=== PATIENT | female | born 1950 | race Caucasian/White ===

== ENCOUNTER 2025-01-21 13:06 | Inpatient (IN) | payer MEDICARE ==
[2025-01-21 14:08] LABS: Basophils # (A) 0.1 k/uL (0-0.2); Basophils % (A) 1 %; Eosinophils # (A) 0.2 k/uL (0-0.7); Eosinophils % (A) 3 %; HCT 46.6 % (34.0-46.0); HGB 15.8 gm/dL (11.4-16.0); Lymphocytes % (A) 13 %; MCH 30.9 pg (25.0-35.0); MCHC 33.9 g/dL (31.0-37.0); Mean Platelet Volume 9.5; Monocytes # (A) 0.4 k/uL (0-1.0); Monocytes % (A) 5 %; Neutrophils % (A) 77 %; Platelet Count 274 k/uL (150-450); RBC 5.12 m/uL (3.80-5.40); RDW 12.4 % (11.5-15.5); WBC 7.7 k/uL (3.8-10.6)
[2025-01-21 14:18] LABS: ALT 26 U/L (4-34); AST 27 U/L (14-36); African American GFR (CKD) >90 (>60 ml/min/1.73 sqM); Albumin 4.3 g/dL (3.5-5.0); Alkaline Phosphatase 91 U/L (38-126); Anion Gap 12 mmol/L; Blood Urea Nitrogen 17 mg/dL (7-17); Calcium 9.4 mg/dL (8.4-10.2); Carbon Dioxide 28 mmol/L (22-30); Chloride 94 mmol/L (98-107); Glucose 276 mg/dL (74-99); Non-African American GFR(CKD) >90 (>60 ml/min/1.73 sqM); Potassium 3.8 mmol/L (3.5-5.1); Sodium 134 mmol/L (137-145); Total Bilirubin 1.2 mg/dL (0.2-1.3); Total Protein 7.3 g/dL (6.3-8.2)
--- NOTE | 2025-01-21 14:23 | ED ---
Weakness HPI - General Source: patient, family, EMS, RN notes reviewed Mode of arrival: EMS Limitations: no limitations, physical limitation <LupeUvaldo elmore - Last Filed: 01/21/25 14:17> - General Source: patient, family, EMS, RN notes reviewed, old records reviewed Mode of arrival: EMS Limitations: no limitations, physical limitation - History of Present Illness MD Complaint: generalized weakness, lack of energy, difficulty walking -: days(s) (3) Location: LLE, RLE Severity: moderate Severity scale (1-10): 7 Quality: aching Consistency: constant Improves with: none Worsens with: none Context: recent illness Associated Symptoms: myalgias <Gael Rae - Last Filed: 01/27/25 17:26> - General Chief complaint: Weakness Stated complaint: Weakness Time Seen by Provider: 01/21/25 13:20 - History of Present Illness Initial comments: Quick note: This is a 74-year-old female with history of CVA/TIA and DM presenting with for generalized weakness x 5 days. Patient states she has been stuck in bed and has not had the strength to get out with worsening weakness for the past 2-3 days. Patient states her legs feel "on fire" and is unable to be touched due to pain. states patient also having some incontinence as well. Patient denies fever, chills, chest pain, dyspnea, hemiplegia. (Uvaldo Andrade) This is a 74 female to the ER for evaluation, history of CVA and diabetes coming in for weakness decreased strength going up for 3 days. Patient denies any significant complaints but states her whole body hurts. Specially her legs. Family denies any fevers patient is not complaining of any chest pain or shortness of breath and they have not witnessed any episodes of difficulty breathing (Gael Rae) - Related Data Home Medications Medication Instructions Recorded Confirmed Gabapentin [Neurontin] 300 mg PO HS 01/21/25 01/21/25 metFORMIN HCL [Glucophage] 1,000 mg PO BID 01/21/25 01/21/25 Allergies Allergy/AdvReac Type Severity Reaction Status Date / Time latex Allergy Itching Verified 01/21/25 16:30 azithromycin AdvReac Rash/Hives Verified 01/21/25 16:30 Review of Systems ROS Other: All systems not noted in ROS Statement are negative. <Uvaldo Andrade - Last Filed: 01/21/25 14:17> ROS Other: All systems not noted in ROS Statement are negative. <Gael Rae - Last Filed: 01/27/25 17:26> ROS Statement: Those systems with pertinent positive or pertinent negative responses have been documented in the HPI. Past Medical History Past Medical History: CVA/TIA, Diabetes Mellitus Additional Past Medical History / Comment(s): neuropathy History of Any Multi-Drug Resistant Organisms: None Reported Past Surgical History: Orthopedic Surgery Additional Past Surgical History / Comment(s): left knee surgery Past Psychological History: No Psychological Hx Reported Smoking Status: Former smoker Past Alcohol Use History: None Reported Past Drug Use History: None Reported <Uvaldo Andrade Filed: 01/21/25 14:17> - Past Family History Father Additional Family Medical History / Comment(s): of unknown cause Mother Additional Family Medical History / Comment(s): unknown cause <Gael Rae - Last Filed: 01/27/25 17:26> General Exam Limitations: no limitations, physical limitation <Uvaldo Andrade Last Filed: 01/21/25 14:17> General appearance: alert, in no apparent distress Head exam: Present: atraumatic, normocephalic, normal inspection Eye exam: Present: normal appearance, PERRL, EOMI. Absent: scleral icterus, conjunctival injection, periorbital swelling ENT exam: Present: normal exam, mucous membranes moist Neck exam: Present: normal inspection. Absent: tenderness, meningismus, lymphadenopathy Respiratory exam: Present: normal lung sounds bilaterally. Absent: respiratory distress, wheezes, rales, rhonchi, stridor Cardiovascular Exam: Present: normal rhythm, tachycardia, normal heart sounds. Absent: systolic murmur, diastolic murmur, rubs, gallop, clicks GI/Abdominal exam: Present: soft, normal bowel sounds. Absent: distended, tenderness, guarding, rebound, rigid Extremities exam: Present: normal inspection, full ROM, normal capillary refill. Absent: tenderness, pedal edema, joint swelling, calf tenderness Back exam: Present: normal inspection Neurological exam: Present: alert, oriented X3, CN II-XII intact Psychiatric exam: Present: normal affect, normal mood Skin exam: Present: warm, dry, intact, normal color. Absent: rash <Gael Rae - Last Filed: 01/27/25 17:26> - General Exam Comments Initial Comments: Visual Physical Exam Vital signs reviewed General: Well-appearing, nontoxic, no acute distress. Head: Normocephalic, atraumatic Eyes: PERRLA, EOMI ENT: Airway patent Chest: Nonlabored breathing Skin: No visual rash, normal skin tone Neuro: Alert and oriented 3 Musculoskeletal: No gross abnormalities (Uvaldo Andrade) Course <Gael Rae - Last Filed: 01/27/25 17:26> Vital Signs 01/21/25 01/21/25 01/21/25 13:23 16:19 17:14 Temperature 98.2 F Pulse Rate 113 H 112 H 102 H Respiratory 18 20 18 Rate Blood Pressure 153/85 114/74 126/90 O2 Sat by Pulse 93 L 95 Oximetry 01/21/25 18:42 Temperature Pulse Rate 108 H Respiratory 18 Rate Blood Pressure 112/75 O2 Sat by Pulse 94 L Oximetry - Reevaluation(s) Reevaluation #1: 01/21/25 16:40 Medical records reviewed (Gael Rae) Reevaluation #2: 01/21/25 16:40 Patient has no complaints of chest pain no complaints of shortness of breath (Gael Rae) Reevaluation #3: 01/21/25 16:40 Patient and family informed of results questions answered (Gael Rae) Reevaluation #4: Was pt. sent in by a medical professional or institution (, PA, RECORD SEARCHER, urgent care, hospital, or residential...) When possible be specific @ -no Did you speak to anyone other than the patient for history (EMS, parent, family, police, friend...)? What history was obtained from this source @ -no Did you review nursing and triage notes (agree or disagree)? Why? @ -agree Are old charts reviewed (outside hosp., previous admission, EMS record, old EKG, old radiological studies, urgent care reports/EKG's, residential records)? Report findings @ -yes Differential Diagnosis (chest pain, altered mental status, abdominal pain women, abdominal pain men, vaginal bleeding, weakness, fever, dyspnea, syncope, headache, dizziness, GI bleed, back pain, seizure, CVA, palpatations, mental health, musculoskeletal)? @ -prior EKG interpreted by me (3pts min.). @ -yes X-rays interpreted by me (1pt min.). @ -yes positive for pneumonia CT interpreted by me (1pt min.). @ -Yes positive PE U/S interpreted by me (1pt. min.). @ -Yes negative DVT What testing was considered but not performed or refused? (CT, X-rays, U/S, labs)? Why? @ -none What meds were considered but not given or refused? Why? @ -none Did you discuss the management of the patient with other professionals (professionals i.e. , PA, RECORD SEARCHER, lab, RT, psych nurse, marriage and family social worker, lay ups assembler, teacher, property disposal officer, egg caser)? Give summary @ -no Was smoking cessation discussed for >3mins.? @ -no Was critical care preformed (if so, how long)? @ -yes31 Were there social determinants of health that impacted care today? How? (Homelessness, low income, unemployed, alcoholism, drug addiction, transportation, low edu. Level, literacy, decrease access to med. care, long-term, rehab)? @ -none Was there de-escalation of care discussed even if they declined (Discuss DNR or withdrawal of care, Hospice)? DNR status @ -no What co-morbidities impacted this encounter? (DM, HTN, Smoking, COPD, CAD, Cancer, CVA, ARF, Chemo, Hep., AIDS, mental health diagnosis, sleep apnea, morbid obesity)? @ -none Was patient admitted / discharged? Hospital course, mention meds given and route, prescriptions, significant lab abnormalities, going to OR and other pertinent info. @ - 74 female for ER for weakness lower extremity weakness found to have non-ST elevated NJ here in the ER no chest pain no shortness of breath patient admitted for trending of cardiac enzymes and further evaluation, patient does have positive PE on CT scan no DVT with possible PT OT for weakness Admitted Undiagnosed new problem with uncertain prognosis? @ -no Drug Therapy requiring intensive monitoring for toxicity (Heparin, Nitro, Insulin, Cardizem)? @ -no Were any procedures done? @ -no Diagnosis/symptom? @ -PE, pulmonary edema, dyspnea pneumonia Acute, or Chronic, or Acute on Chronic? @ -Acute Uncomplicated (without systemic symptoms) or Complicated (systemic symptoms)? @ -Complicated Side effects of treatment? @ -no Exacerbation, Progression, or Severe Exacerbation? @ -exacerbation Poses a threat to life or bodily function? How? (Chest pain, USA, NJ, pneumonia, PE, COPD, DKA, ARF, appy, cholecystitis, CVA, Diverticulitis, Homicidal, Suicidal, threat to staff... and all critical care pts) @ -yes pulmonary embolism (Gael Rae) Reevaluation #5: Differential Weakness: Hypoglycemia, shock, sepsis, hyponatremia, anemia, infection, NJ, ETOH, adverse medicine reaction, overdose, stroke, this is not meant to be an all-inclusive list. (Gael Rae) - Consultations Consultation #1: spoke w admitting physicians ok for admission (Gael Rae) Medical Decision Making - Lab Data Result diagrams: 01/21/25 13:55 <Uvaldo Andrade - Last Filed: 01/21/25 14:17> - Lab Data Result diagrams: 01/27/25 06:11 01/27/25 06:11 - EKG Data -: EKG Interpreted by Me - Radiology Data Radiology results: report reviewed (Chest x-ray concern for pneumonia, CTA chest positive for PE pneumonia, ultrasound bilateral lower extremity negative for PE), image reviewed <Gael Rae - Last Filed: 01/27/25 17:26> - Medical Decision Making I completed the quick note portion of this chart signed MIRIAN Duran (Uvaldo Andrade) 74 female for ER for weakness lower extremity weakness found to have non-ST elevated NJ here in the ER no chest pain no shortness of breath patient admitted for trending of cardiac enzymes and further evaluation with possible PT OT for weakness (Gael Rae) - Lab Data Lab Results 01/21/25 01/21/25 01/21/25 Range/Units 13:55 13:55 13:55 WBC 7.7 (3.8-10.6) k/uL RBC 5.12 (3.80-5.40) m/uL Hgb 15.8 (11.4-16.0) gm/dL Hct 46.6 H (34.0-46.0) % MCV 91.0 (80.0-100.0) fL MCH 30.9 (25.0-35.0) pg MCHC 33.9 (31.0-37.0) g/dL RDW 12.4 (11.5-15.5) % Plt Count 274 (150-450) k/uL MPV 9.5 Neutrophils % 77 % Lymphocytes % 13 % Monocytes % 5 % Eosinophils % 3 % Basophils % 1 % Neutrophils # 6.0 (1.3-7.7) k/uL Lymphocytes # 1.0 (1.0-4.8) k/uL Monocytes # 0.4 (0-1.0) k/uL Eosinophils # 0.2 (0-0.7) k/uL Basophils # 0.1 (0-0.2) k/uL PT (10.0-12.5) sec INR (<1.2) APTT (22.0-30.0) sec D-Dimer (<0.60) mg/L FEU Sodium 134 L (137-145) mmol/L Potassium 3.8 (3.5-5.1) mmol/L Chloride 94 L (98-107) mmol/L Carbon Dioxide 28 (22-30) mmol/L Anion Gap 12 mmol/L BUN 17 (7-17) mg/dL Creatinine 0.51 L (0.52-1.04) mg/dL Est GFR (CKD-EPI)AfAm >90 (>60 ml/min/1.73 sqM) Est GFR (CKD-EPI)NonAf >90 (>60 ml/min/1.73 sqM) Glucose 276 H (74-99) mg/dL Plasma Lactic Acid Buck 1.8 (0.7-2.0) mmol/L Calcium 9.4 (8.4-10.2) mg/dL Phosphorus 4.2 (2.5-4.5) mg/dL Magnesium 2.3 (1.6-2.3) mg/dL Total Bilirubin 1.2 (0.2-1.3) mg/dL AST 27 (14-36) U/L ALT 26 (4-34) U/L Alkaline Phosphatase 91 (38-126) U/L Creatine Kinase (30-135) U/L Troponin I (0.000-0.034) ng/mL NT-Pro-B Natriuret Pep 3510 pg/mL Total Protein 7.3 (6.3-8.2) g/dL Albumin 4.3 (3.5-5.0) g/dL Influenza Type A (PCR) (Not Detectd) Influenza Type B (PCR) (Not Detectd) RSV (PCR) (Not Detectd) SARS-CoV-2 (PCR) (Not Detectd) 01/21/25 01/21/25 01/21/25 Range/Units 13:55 13:55 16:10 WBC (3.8-10.6) k/uL RBC (3.80-5.40) m/uL Hgb (11.4-16.0) gm/dL Hct (34.0-46.0) % MCV (80.0-100.0) fL MCH (25.0-35.0) pg MCHC (31.0-37.0) g/dL RDW (11.5-15.5) % Plt Count (150-450) k/uL MPV Neutrophils % % Lymphocytes % % Monocytes % % Eosinophils % % Basophils % % Neutrophils # (1.3-7.7) k/uL Lymphocytes # (1.0-4.8) k/uL Monocytes # (0-1.0) k/uL Eosinophils # (0-0.7) k/uL Basophils # (0-0.2) k/uL PT 11.4 (10.0-12.5) sec INR 1.0 (<1.2) APTT 18.9 L (22.0-30.0) sec D-Dimer (<0.60) mg/L FEU Sodium (137-145) mmol/L Potassium (3.5-5.1) mmol/L Chloride (98-107) mmol/L Carbon Dioxide (22-30) mmol/L Anion Gap mmol/L BUN (7-17) mg/dL Creatinine (0.52-1.04) mg/dL Est GFR (CKD-EPI)AfAm (>60 ml/min/1.73 sqM) Est GFR (CKD-EPI)NonAf (>60 ml/min/1.73 sqM) Glucose (74-99) mg/dL Plasma Lactic Acid Buck (0.7-2.0) mmol/L Calcium (8.4-10.2) mg/dL Phosphorus (2.5-4.5) mg/dL Magnesium (1.6-2.3) mg/dL Total Bilirubin (0.2-1.3) mg/dL AST (14-36) U/L ALT (4-34) U/L Alkaline Phosphatase (38-126) U/L Creatine Kinase 179 H (30-135) U/L Troponin I 0.401 H* (0.000-0.034) ng/mL NT-Pro-B Natriuret Pep pg/mL Total Protein (6.3-8.2) g/dL Albumin (3.5-5.0) g/dL Influenza Type A (PCR) (Not Detectd) Influenza Type B (PCR) (Not Detectd) RSV (PCR) (Not Detectd) SARS-CoV-2 (PCR) (Not Detectd) 01/21/25 01/21/25 Range/Units 16:10 16:30 WBC (3.8-10.6) k/uL RBC (3.80-5.40) m/uL Hgb (11.4-16.0) gm/dL Hct (34.0-46.0) % MCV (80.0-100.0) fL MCH (25.0-35.0) pg MCHC (31.0-37.0) g/dL RDW (11.5-15.5) % Plt Count (150-450) k/uL MPV Neutrophils % % Lymphocytes % % Monocytes % % Eosinophils % % Basophils % % Neutrophils # (1.3-7.7) k/uL Lymphocytes # (1.0-4.8) k/uL Monocytes # (0-1.0) k/uL Eosinophils # (0-0.7) k/uL Basophils # (0-0.2) k/uL PT (10.0-12.5) sec INR (<1.2) APTT (22.0-30.0) sec D-Dimer 13.17 H (<0.60) mg/L FEU Sodium (137-145) mmol/L Potassium (3.5-5.1) mmol/L Chloride (98-107) mmol/L Carbon Dioxide (22-30) mmol/L Anion Gap mmol/L BUN (7-17) mg/dL Creatinine (0.52-1.04) mg/dL Est GFR (CKD-EPI)AfAm (>60 ml/min/1.73 sqM) Est GFR (CKD-EPI)NonAf (>60 ml/min/1.73 sqM) Glucose (74-99) mg/dL Plasma Lactic Acid Buck (0.7-2.0) mmol/L Calcium (8.4-10.2) mg/dL Phosphorus (2.5-4.5) mg/dL Magnesium (1.6-2.3) mg/dL Total Bilirubin (0.2-1.3) mg/dL AST (14-36) U/L ALT (4-34) U/L Alkaline Phosphatase (38-126) U/L Creatine Kinase (30-135) U/L Troponin I (0.000-0.034) ng/mL NT-Pro-B Natriuret Pep pg/mL Total Protein (6.3-8.2) g/dL Albumin (3.5-5.0) g/dL Influenza Type A (PCR) Not Detected (Not Detectd) Influenza Type B (PCR) Not Detected (Not Detectd) RSV (PCR) Not Detected (Not Detectd) SARS-CoV-2 (PCR) Not Detected (Not Detectd) Critical Care Time Critical Care Time: Yes Total Critical Care Time: 31 <Gael Rae - Last Filed: 01/27/25 17:26> Disposition <Uvaldo Andrade - Last Filed: 01/21/25 14:17> Is patient prescribed a controlled substance at d/c from ED?: No Time of Disposition: 16:30 <Gael Rae - Last Filed: 01/27/25 17:26> Clinical Impression: Dehydration, Weakness, NSTEMI (non-ST elevated myocardial infarction), Tachycardia, Pneumonia, Pulmonary edema, Pulmonary embolism Disposition: ADMITTED IP TO THIS [facility] Condition: Serious
--- NOTE | 2025-01-21 15:34 | XR ---
EXAMINATION TYPE: XR chest 2V DATE OF EXAM: 01/21/2025 3:24 PM COMPARISON: None TECHNIQUE: XR chest 2V Frontal and lateral views of the chest. CLINICAL INDICATION:Female, 74 years old with history of Weakness; FINDINGS: Lungs/Pleura: There is no evidence of pleural effusion or pneumothorax. Bibasilar patchy airspace opa cities. Pulmonary vascularity: Unremarkable. Heart/mediastinum: Cardiomediastinal silhouette is unremarkable. Atherosclerotic calcifications are seen in the aorta. Musculoskeletal: Multiple level degenerative disc disease changes seen throughout the spine. IMPRESSION: Bibasilar patchy airspace opacities which may represent infiltrates versus atelectasis. [facility], , 01/21/2025 3:32 PM
[2025-01-21] MEDS: SODIUM CHLORIDE 0.9% 500 ML 500 ML IV ONE (16:25)
[2025-01-21] MEDS: SODIUM CHLORIDE 0.9% 1,000 ML IV SCH (16:25)
[2025-01-21 16:39] LABS: Prothrombin Time 11.4 sec (10.0-12.5)
[2025-01-21 16:45] LABS: Magnesium 2.3 mg/dL (1.6-2.3); Phosphorus 4.2 mg/dL (2.5-4.5)
[2025-01-21 16:53] LABS: NT-Pro-B-Type Natriuretic Pept 3510 pg/mL
[2025-01-21] MEDS: ACETAMINOPHEN IV (For NPO) 1,000 MG in EMPTY BAG 1 BAG IVPB STA (17:12)
[2025-01-21 17:18] LABS: Influenza A Not Detected (Not Detectd); Influenza B Not Detected (Not Detectd); RSV Not Detected (Not Detectd)
[2025-01-21 17:26] LABS: Partial Thromboplastin Time 18.9 sec (22.0-30.0)
[2025-01-21] MEDS ORDERED: ONDANSETRON 4 MG/2 ML VIAL IVP PRN (17:28)
[2025-01-21] MEDS ORDERED: HEPARIN SODIUM 1,000 UN/ML (10ML VL) IV PRN (17:28)
[2025-01-21] MEDS ORDERED: NALOXONE 0.4 MG/ML 1 ML VIAL IV PRN (17:28)
[2025-01-21] MEDS ORDERED: MORPHINE SULFATE 4 MG/ML SYRINGE IV PRN (17:28)
[2025-01-21] MEDS: HEPARIN SODIUM 1,000 UN/ML (10ML VL) IV ONE ×2 (18:35→19:50)
[2025-01-21] MEDS: HEPARIN SOD,PORK IN 0.45% NACL 25,000 UNIT in 0.45% NACL 1 250ML.BAG IV SCH ×2 (18:37→19:56)
--- NOTE | 2025-01-21 18:56 | CT ---
EXAMINATION TYPE: CT angio chest DATE OF EXAM: 01/21/2025 6:45 PM COMPARISON: None CLINICAL INDICATION: Female, 74 years old with history of dvt; Pt c/o weakness and inability to get o ut of bed for 4 to 5 days. TECHNIQUE/CONTRAST: CTA scan of the thorax is performed with IV Contrast, patient injected with 100ml mL of Isovue 370, M IP images are created and reviewed these are created on a separate workstation.. CT DLP: 571.7 mGycm, Automated exposure control for dose reduction was used. FINDINGS: Lungs/Pleura: Intralobular septal thickening. No evidence of focal consolidation, pleural effusion or pneumothorax. Airway: Large airways are patent. Heart: Size within normal limits. Moderate coronary artery calcifications present. Vasculature: Filling defects seen within the pulmonary arterial vasculature bilaterally involving all lung lobes.. Pulmonary trunk is dilated up to 43 mm. Mediastinum: No gross evidence of adenopathy. Musculoskeletal: No acute osseous abnormalities Soft Tissues/lymph nodes: Unremarkable. Lower neck: No significant findings. Upper Abdomen: Simple appearing left renal cyst, no follow-up recommended. Diffuse low-attenuation to the liver parenchyma. IMPRESSION: 1. Pulmonary emboli bilaterally, no evidence for right heart failure at this time.e 2. Pulmonary hypertension with mild pulmonary edema. 3. Colonic diverticulosis. Findings communicated to Ana Kelley and group on 01/21/2025 6:[address] Mark Edge. [facility], , 01/21/2025 6:54 PM
--- NOTE | 2025-01-21 19:31 | US ---
EXAMINATION TYPE: US venous doppler duplex LE BI DATE OF EXAM: 01/21/2025 7:16 PM COMPARISON: CT chest CLINICAL INDICATION: Female, 74 years old with history of dvt; PE. Patient states slight swelling and pain. no hx dvt. not on thinners, Pain TECHNIQUE: The lower extremity deep venous system is examined utilizing real time linear array sonog arnaldo with graded compression, color doppler sonography, and spectral doppler. SIDE PERFORMED: Bilateral FINDINGS: VESSELS IMAGED: Common Femoral Vein Deep Femoral Vein Greater Saphenous Vein * Femoral Vein Popliteal Vein Small Saphenous Vein * Proximal Calf Veins (* superficial vessels) suboptimal imaging due to patient moving throughout entirety of exam Right Leg: appears negative for dvt, Color Doppler imaging shows patency of the vessels. Spectral wa veforms are within normal limits. Patient cannot tolerate compression throughout right CFV/ DFV to di stal femoral vein. Left Leg: appears negative for dvt, Color Doppler imaging shows patency of the vessels. Spectral wav eforms are within normal limits. Rouleaux flow seen within the left CFV/ femoral vein IMPRESSION: No ultrasound evidence for deep venous thrombosis. [facility], , 01/21/2025 7:29 PM
[2025-01-21 20:28] LABS: Glucose,Whole Blood 314 mg/dL (70-110)
[2025-01-22 06:46] LABS: Appearance,Urine Clear (Clear); Bilirubin,Urine Negative (Negative); Blood,Urine Negative (Negative); Color,Urine Yellow; Glucose,Urine (UA) 4+ (Negative); Ketones,Urine Negative (Negative); Leukocyte Esterase,Urine Negative (Negative); Nitrite,Urine Negative (Negative); Protein,Urine Trace (Negative)
[2025-01-22 06:50] LABS: Basophils # (A) 0.1 k/uL (0-0.2); Basophils % (A) 1 %; Eosinophils # (A) 0.4 k/uL (0-0.7); Eosinophils % (A) 5 %; HCT 41.4 % (34.0-46.0); HGB 13.4 gm/dL (11.4-16.0); Lymphocytes # (A) 1.6 k/uL (1.0-4.8); Lymphocytes % (A) 19 %; MCH 30.1 pg (25.0-35.0); MCHC 32.4 g/dL (31.0-37.0); MCV 92.7 fL (80.0-100.0); Mean Platelet Volume 9.1; Monocytes # (A) 0.5 k/uL (0-1.0); Monocytes % (A) 6 %; Neutrophils # (A) 5.6 k/uL (1.3-7.7); Neutrophils % (A) 67 %; Platelet Count 231 k/uL (150-450); RBC 4.46 m/uL (3.80-5.40); RDW 12.2 % (11.5-15.5); WBC 8.4 k/uL (3.8-10.6)
[2025-01-22 06:57] LABS: ALT 20 U/L (4-34); AST 23 U/L (14-36); African American GFR (CKD) >90 (>60 ml/min/1.73 sqM); Albumin 3.6 g/dL (3.5-5.0); Alkaline Phosphatase 88 U/L (38-126); Anion Gap 7 mmol/L; Blood Urea Nitrogen 13 mg/dL (7-17); Calcium 8.6 mg/dL (8.4-10.2); Carbon Dioxide 28 mmol/L (22-30); Chloride 98 mmol/L (98-107); Glucose 244 mg/dL (74-99); Magnesium 2.3 mg/dL (1.6-2.3); Non-African American GFR(CKD) >90 (>60 ml/min/1.73 sqM); Phosphorus 3.9 mg/dL (2.5-4.5); Potassium 3.5 mmol/L (3.5-5.1); Sodium 133 mmol/L (137-145); Total Bilirubin 0.8 mg/dL (0.2-1.3); Total Protein 6.2 g/dL (6.3-8.2)
[2025-01-22 07:19] LABS: Specific Gravity,Urine >1.050 (1.001-1.035)
--- NOTE | 2025-01-22 09:01 | P.CRDCN ---
History of Present Illness Consult date: 01/22/25 History of present illness: The patient is a 74-year-old female patient with a past medical history significant for overweight and diabetes as well as multiple comorbid conditions who was admitted to the hospital with generalized weakness and fatigue. No other cardiovascular symptoms of any pain in the chest or shortness of breath or dizziness or lightness or any feeling of heart racing or fluttering or presyncope or syncope. She underwent further evaluation including cardiac enzymes with troponin came to be abnormal and EKG showing sinus mechanism with sinus tachycardia and S1Q3T3 pattern with nonspecific changes anteriorly as well. D-dimer came to be elevated and subsequently she underwent a CT scan of the chest which showed bilateral PE with no evidence of RV strain. Troponin is mildly elevated and NT proBNP is elevated with no echo as of now. No history of PE before. No recent surgery or history of travel for long distance as well. The physical examination is remarkable for regular rhythm with a soft systolic murmur at the right upper sternal border with clear breathing sounds bilaterally and no edema was noted in the lower extremities with please note that she underwent venous duplex study came to be unremarkable for DVT. Assessment Bilateral PE appears to be unprovoked Evidence of myocardial injury Abnormal EKG as described above Generalized weakness and fatigue Multiple comorbid conditions including diabetes and hypertension and dy slipidemia Plan Continue IV heparin for now Consider switching the patient to oral anticoagulation Obtain an echo for further risk stratification Further recommendation to follow the echocardiogram Past Medical History Past Medical History: CVA/TIA, Diabetes Mellitus Additional Past Medical History / Comment(s): neuropathy History of Any Multi-Drug Resistant Organisms: None Reported Past Surgical History: Orthopedic Surgery Additional Past Surgical History / Comment(s): left knee surgery Past Psychological History: No Psychological Hx Reported Smoking Status: Former smoker Past Alcohol Use History: None Reported Past Drug Use History: None Reported Medications and Allergies Home Medications Medication Instructions Recorded Confirmed Type Gabapentin [Neurontin] 300 mg PO HS 01/21/25 01/21/25 History metFORMIN HCL [Glucophage] 1,000 mg PO BID 01/21/25 01/21/25 History Allergies Allergy/AdvReac Type Severity Reaction Status Date / Time latex Allergy Itching Verified 01/21/25 16:30 azithromycin AdvReac Rash/Hives Verified 01/21/25 16:30 Physical Exam Vitals: Vital Signs Temp Pulse Pulse Pulse Resp BP BP 01/22/25 08:35 98.1 F 99 18 119/69 01/22/25 00:00 98.1 F 100 18 122/74 01/21/25 21:00 97.5 F L 101 H 18 131/76 01/21/25 18:42 108 H 18 112/75 01/21/25 17:14 102 H 18 126/90 01/21/25 16:19 112 H 20 114/74 01/21/25 13:23 98.2 F 113 H 18 153/85 Pulse Ox 01/22/25 08:35 96 01/22/25 00:00 95 01/21/25 21:00 94 L 01/21/25 18:42 94 L 01/21/25 17:14 95 01/21/25 16:19 01/21/25 13:23 93 L Intake and Output 01/21/25 01/22/25 01/22/25 22:59 06:59 14:59 Intake Total 539.12 10 Balance 539.12 10 Intake: IV 10 Invasive Line 1 10 Intake, IV Titration 539.12 Amount Heparin Sod,Pork in 0.45% 89.12 NaCl 25,000 unit In 0.45 % NaCl 1 250ml.bag @ 18 UNITS/KG/HR 15.105 mls/hr IV .[id number] [facility] Rx#: [id number] Sodium Chloride 0.9% 1, 450 000 ml @ 75 mls/hr IV . [id number] [facility] Rx#:[id number] Other: Voiding Method Bedpan # Voids 1 Weight 83.915 kg 93 kg Results 01/22/25 06:00 01/22/25 06:00 Cardiac Enzymes 01/21/25 01/21/25 01/21/25 Range/Units 13:55 13:55 18:42 AST 27 (14-36) U/L Troponin I 0.401 H* 0.391 H* (0.000-0.034) ng/mL 01/21/25 01/22/25 Range/Units 22:00 06:00 AST 23 (14-36) U/L Troponin I 0.325 H* (0.000-0.034) ng/mL Coagulation 01/21/25 01/22/25 01/22/25 Range/Units 16:10 00:23 06:00 PT 11.4 (10.0-12.5) sec APTT 18.9 L 35.9 H 40.6 H (22.0-30.0) sec CBC 01/21/25 01/22/25 Range/Units 13:55 06:00 WBC 7.7 8.4 (3.8-10.6) k/uL RBC 5.12 4.46 (3.80-5.40) m/uL Hgb 15.8 13.4 (11.4-16.0) gm/dL Hct 46.6 H 41.4 (34.0-46.0) % Plt Count 274 231 (150-450) k/uL Comprehensive Metabolic Panel 01/21/25 01/22/25 Range/Units 13:55 06:00 Sodium 134 L 133 L (137-145) mmol/L Potassium 3.8 3.5 (3.5-5.1) mmol/L Chloride 94 L 98 (98-107) mmol/L Carbon Dioxide 28 28 (22-30) mmol/L BUN 17 13 (7-17) mg/dL Creatinine 0.51 L 0.54 (0.52-1.04) mg/dL Glucose 276 H 244 H (74-99) mg/dL Calcium 9.4 8.6 (8.4-10.2) mg/dL AST 27 23 (14-36) U/L ALT 26 20 (4-34) U/L Alkaline Phosphatase 91 88 (38-126) U/L Total Protein 7.3 6.2 L (6.3-8.2) g/dL Albumin 4.3 3.6 (3.5-5.0) g/dL Current Medications Generic Name Dose Route Start Last Admin Trade Name Freq PRN Reason Stop Dose Admin Heparin Sodium (Porcine) 0 unit 01/21/25 19:42 Heparin Sodium 1,000 Un/Ml (10ml Vl) IV PER PROTOCOL PRN Low PTT Protocol Sodium Chloride 1,000 mls @ 75 mls/hr 01/21/25 16:15 01/22/25 04:52 Saline 0.9% IV 75 mls/hr .[id number] [facility] Administration Heparin Sodium/Sodium Chloride 250 mls @ 15.105 mls/hr 01/21/25 19:45 01/22/25 01:50 25,000 unit/ Sodium Chloride IV 20 units/kg/hr .[id number] [facility] 16.783 mls/hr Titration Protocol 18 UNITS/KG/HR Morphine Sulfate 4 mg 01/21/25 17:28 Morphine Sulfate 4 Mg/Ml Syringe IV Q4HR PRN Severe Pain (Scale 7 to 10) Naloxone HCl 0.2 mg 01/21/25 17:28 Naloxone 0.4 Mg/Ml 1 Ml Vial IV Q2M PRN Opioid Reversal Ondansetron HCl 4 mg 01/21/25 17:28 Ondansetron 4 Mg/2 Ml Vial IVP Q8HR PRN Nausea And Vomiting Intake and Output 01/21/25 01/22/25 01/22/25 22:59 06:59 14:59 Intake Total 539.12 10 Balance 539.12 10 Intake: IV 10 Invasive Line 1 10 Intake, IV Titration 539.12 Amount Heparin Sod,Pork in 0.45% 89.12 NaCl 25,000 unit In 0.45 % NaCl 1 250ml.bag @ 18 UNITS/KG/HR 15.105 mls/hr IV .[id number] [facility] Rx#: [id number] Sodium Chloride 0.9% 1, 450 000 ml @ 75 mls/hr IV . [id number] [facility] Rx#:[id number] Other: Voiding Method Bedpan # Voids 1 Weight 83.915 kg 93 kg 01/22/25 06:00 01/22/25 06:00
[2025-01-22 11:33] LABS: Glucose,Whole Blood 289 mg/dL (70-110)
--- NOTE | 2025-01-22 11:47 | P.CNPUL ---
History of Present Illness Consult date: 01/22/25 Requesting physician: Laila Evangelista Reason for consult: dyspnea, cough, hypoxemia, pulmonary embolism, abnormal CXR/CT Chief complaint: Pulmonary embolism. History of present illness: Pulmonary consultation dated January 22, 2025. 74-year-old female seen today in room 368. She went to the emergency department, with complaints of generalized weakness for 5 days. She apparently had no leg strength. In addition, she mentions that she was a bit short of breath. She was evaluated in the emergency room, and found to have a pulmonary embolism on CT angiogram. She was seen there by a PA I believe, and by the ER physician. The patient does have a history of CVA, and diabetes. Currently, the patient is on IV heparin, saline at 75 cc an hour, and room air. She does state that she has been inactive at home, for a number of days, prior to coming into the emergency department. Laboratory data includes a white count 8.4, hemoglobin 13.4, hematocrit 41.4, and a platelet count of 3 31,000. PTT is 40.6. Sodium 133, potassium 3.5, chlorides 98, CO2 28, BUN 13, creatinine 0.54. Glucose is 289. Troponin was 0.325. Urine was negative. Venous Doppler studies were negative for DVT. Chest x-ray showed bibasilar patchy airspace opacities. CT angiogram showed filling defects within the pulmonary arterial vasculature, bilaterally, involving all lung lobes. Pulmonary trunk is dilated up to 43 mm. No evidence of right heart strain noted on CTA. Review of Systems REVIEW OF SYSTEMS: CONSTITUTIONAL: Weakness. NEUROLOGIC: [ Negative.] HEENT: [ Negative.] CARDIAC: [Negative.] PULMONARY: [Negative.] GI: [Negative.] : [Negative.] RHEUMATOLOGIC: Decreased leg strength. IMMUNOLOGIC: [ Negative.] ENDOCRINE: [Negative. ] DERMATOLOGIC: [Negative.] Past Medical History Past Medical History: CVA/TIA, Diabetes Mellitus Additional Past Medical History / Comment(s): neuropathy History of Any Multi-Drug Resistant Organisms: None Reported Past Surgical History: Orthopedic Surgery Additional Past Surgical History / Comment(s): left knee surgery Past Psychological History: No Psychological Hx Reported Smoking Status: Former smoker Past Alcohol Use History: None Reported Past Drug Use History: None Reported Medications and Allergies Home Medications Medication Instructions Recorded Confirmed Type Gabapentin [Neurontin] 300 mg PO HS 01/21/25 01/21/25 History metFORMIN HCL [Glucophage] 1,000 mg PO BID 01/21/25 01/21/25 History Allergies Allergy/AdvReac Type Severity Reaction Status Date / Time latex Allergy Itching Verified 01/21/25 16:30 azithromycin AdvReac Rash/Hives Verified 01/21/25 16:30 Physical Exam Osteopathic Statement: *. No significant issues noted on an osteopathic structural exam other than those noted in the History and Physical/Consult. Vitals: Vital Signs Temp Pulse Pulse Pulse Resp BP BP 01/22/25 08:35 98.1 F 99 18 119/69 01/22/25 00:00 98.1 F 100 18 122/74 01/21/25 21:00 97.5 F L 101 H 18 131/76 01/21/25 18:42 108 H 18 112/75 01/21/25 17:14 102 H 18 126/90 01/21/25 16:19 112 H 20 114/74 01/21/25 13:23 98.2 F 113 H 18 153/85 Pulse Ox 01/22/25 08:35 96 01/22/25 00:00 95 01/21/25 21:00 94 L 01/21/25 18:42 94 L 01/21/25 17:14 95 01/21/25 16:19 01/21/25 13:23 93 L Intake and Output 01/21/25 01/22/25 01/22/25 22:59 06:59 14:59 Intake Total 539.12 370.278 Balance 539.12 370.278 Intake: IV 10 Invasive Line 1 10 Intake, IV Titration 539.12 120.278 Amount Heparin Sod,Pork in 0.45% 89.12 120.278 NaCl 25,000 unit In 0.45 % NaCl 1 250ml.bag @ 18 UNITS/KG/HR 15.105 mls/hr IV .[id number] [facility] Rx#: [id number] Sodium Chloride 0.9% 1, 450 000 ml @ 75 mls/hr IV . [id number] [facility] Rx#:[id number] Oral 240 Other: Voiding Method Bedpan # Voids 1 Weight 83.915 kg 93 kg No acute distress, oriented 3. Not requiring any supplemental oxygen. No conversational dyspnea, or use of accessory muscles. HEENT examination is grossly unremarkable. Mucous membranes are moist. No oral lesions. Neck supple. Full range of motion. No adenopathy thyromegaly or neck vein distention. Cardiovascular examination reveals regular rhythm rate. S1-S2 normal. No S3 or S4. No discernible murmur noted. Lungs reveal clear breath sounds. Breath sounds are equal bilaterally. No adventitious lung sounds including wheezes rhonchi or crackles. Abdomen soft bowel sounds are heard. No masses or tenderness. Extremities are intact. No cyanosis clubbing or edema. Skin is without rash or lesion. Neurologic examination is brief but nonfocal. Results - Laboratory Findings CBC and BMP: 01/22/25 06:00 01/22/25 06:00 PT/INR, D-dimer PT 11.4 sec (10.0-12.5) 01/21/25 16:10 INR 1.0 (<1.2) 01/21/25 16:10 D-Dimer 13.17 mg/L FEU (<0.60) H 01/21/25 16:10 Abnormal lab findings: Abnormal Labs 01/21/25 01/21/25 01/21/25 13:55 13:55 13:55 Hct 46.6 H APTT D-Dimer Sodium 134 L Chloride 94 L Creatinine 0.51 L Glucose 276 H POC Glucose (mg/dL) Creatine Kinase Troponin I 0.401 H* Total Protein Ur Specific [place] Urine Protein Urine Glucose (UA) 01/21/25 01/21/25 01/21/25 13:55 16:10 16:10 Hct APTT 18.9 L D-Dimer 13.17 H Sodium Chloride Creatinine Glucose POC Glucose (mg/dL) Creatine Kinase 179 H Troponin I Total Protein Ur Specific [place] Urine Protein Urine Glucose (UA) 01/21/25 01/21/25 01/21/25 18:42 20:19 22:00 Hct APTT D-Dimer Sodium Chloride Creatinine Glucose POC Glucose (mg/dL) 314 H Creatine Kinase Troponin I 0.391 H* 0.325 H* Total Protein Ur Specific [place] Urine Protein Urine Glucose (UA) 01/22/25 01/22/25 01/22/25 00:23 06:00 06:00 Hct APTT 35.9 H 40.6 H D-Dimer Sodium 133 L Chloride Creatinine Glucose 244 H POC Glucose (mg/dL) Creatine Kinase Troponin I Total Protein 6.2 L Ur Specific [place] Urine Protein Urine Glucose (UA) 01/22/25 01/22/25 06:20 11:32 Hct APTT D-Dimer Sodium Chloride Creatinine Glucose POC Glucose (mg/dL) 289 H Creatine Kinase Troponin I Total Protein Ur Specific [place] >1.050 H Urine Protein Trace H Urine Glucose (UA) 4+ H - Diagnostic Findings Chest x-ray: image reviewed CT scan - chest: image reviewed U/S of Legs: image reviewed Assessment and Plan Assessment: Bilateral pulmonary embolism, without evidence of right heart strain. No evidence of DVT on lower extremity Dopplers. History of CVA. History of diabetes mellitus, with diabetic neuropathy. Prior history of tobacco use. Sedentary lifestyle. Plan: Plan dated January 22, 2025. The patient is seen today in room 368. She is currently on IV heparin. She is getting saline at 75 cc an hour. She is on room air. The patient's CT scan is reviewed. No evidence of right heart strain, noted. Echocardiogram is pending. Troponins were elevated. Labs, x-rays, and medications are reviewed. I do not believe the patient is a candidate for suction thrombectomy or EKOS at this time. I will leave that up to cardiology, pending the echocardiogram. If no intervention is anticipated, the patient's IV heparin can be converted to a direct oral anticoagulant/factor Xa inhibitor. Dictation was produced using [employer] software. Please excuse any grammatical, word or spelling errors. Time with Patient: Greater than 30
--- NOTE | 2025-01-22 18:26 | P.HPIM ---
History of Present Illness H&P Date: 01/22/25 Chief Complaint: Generalized weakness 74-year-old female, history of diabetes mellitus, CVA/TIA, presented to the emergency department, with complaints of generalized weakness for 5 days along with shortness of breath. She apparently had no leg strength. - She was evaluated in the emergency room, and found to have a pulmonary embolism on CT angiogram. Currently, the patient is on IV heparin, saline at 75 cc an hour, and room air. --Laboratory data includes a white count 8.4, hemoglobin 13.4, hematocrit 41.4, and a platelet count of 3 31,000. PTT is 40.6. Sodium 133, potassium 3.5, chlorides 98, CO2 28, BUN 13, creatinine 0.54. Glucose is 289. Troponin was 0.325. -Urine was negative. -- Venous Doppler studies were negative for DVT. -Chest x-ray showed bibasilar patchy airspace opacities. CT angiogram showed filling defects within the pulmonary arterial vasculature, bilaterally, involving all lung lobes. Pulmonary trunk is dilated up to 43 mm. No evidence of right heart strain noted on CTA. Review of Systems REVIEW OF SYSTEMS: CONSTITUTIONAL: No fever, no malaise, no fatigue. HEENT: No recent visual problems or hearing problems. Denied any sore throat. CARDIOVASCULAR: No chest pain, orthopnea, PND, no palpitations, no syncope. PULMONARY: No shortness of breath, no cough, no hemoptysis. GASTROINTESTINAL: No diarrhea, no nausea, no vomiting, no abdominal pain. NEUROLOGICAL: No headaches, no weakness, no numbness. HEMATOLOGICAL: Denies any bleeding or petechiae. GENITOURINARY: Denies any burning micturition, frequency, or urgency. MUSCULOSKELETAL/RHEUMATOLOGICAL: Denies any joint pain, swelling, or any muscle pain. ENDOCRINE: Denies any polyuria or polydipsia. The rest of the 14-point review of systems is negative. Past Medical History Past Medical History: CVA/TIA, Diabetes Mellitus Additional Past Medical History / Comment(s): neuropathy History of Any Multi-Drug Resistant Organisms: None Reported Past Surgical History: Orthopedic Surgery Additional Past Surgical History / Comment(s): left knee surgery Past Psychological History: No Psychological Hx Reported Smoking Status: Former smoker Past Alcohol Use History: None Reported Past Drug Use History: None Reported Medications and Allergies Home Medications Medication Instructions Recorded Confirmed Type Gabapentin [Neurontin] 300 mg PO HS 01/21/25 01/21/25 History metFORMIN HCL [Glucophage] 1,000 mg PO BID 01/21/25 01/21/25 History Allergies Allergy/AdvReac Type Severity Reaction Status Date / Time latex Allergy Itching Verified 01/21/25 16:30 azithromycin AdvReac Rash/Hives Verified 01/21/25 16:30 Physical Exam Vitals: Vital Signs Temp Pulse Pulse Pulse Resp BP BP 01/22/25 12:01 98.1 F 91 18 122/74 01/22/25 08:35 98.1 F 99 18 119/69 01/22/25 00:00 98.1 F 100 18 122/74 01/21/25 21:00 97.5 F L 101 H 18 131/76 01/21/25 18:42 108 H 18 112/75 01/21/25 17:14 102 H 18 126/90 01/21/25 16:19 112 H 20 114/74 Pulse Ox 01/22/25 12:01 94 L 01/22/25 08:35 96 01/22/25 00:00 95 01/21/25 21:00 94 L 01/21/25 18:42 94 L 01/21/25 17:14 95 01/21/25 16:19 Intake and Output 01/21/25 01/22/25 01/22/25 22:59 06:59 14:59 Intake Total 539.12 370.278 Output Total 300 Balance 539.12 70.278 Intake: IV 10 Invasive Line 1 10 Intake, IV Titration 539.12 120.278 Amount Heparin Sod,Pork in 0.45% 89.12 120.278 NaCl 25,000 unit In 0.45 % NaCl 1 250ml.bag @ 18 UNITS/KG/HR 15.105 mls/hr IV .[id number] [facility] Rx#: [id number] Sodium Chloride 0.9% 1, 450 000 ml @ 75 mls/hr IV . [id number] [facility] Rx#:[id number] Oral 240 Output: Urine 300 Other: Voiding Method Bedpan # Voids 1 Weight 83.915 kg 93 kg Results CBC & Chem 7: 01/22/25 06:00 01/22/25 06:00 Labs: Abnormal Lab Results - Last 24 Hours (Table) 01/21/25 01/21/25 01/21/25 Range/Units 13:55 13:55 13:55 APTT (22.0-30.0) sec D-Dimer (<0.60) mg/L FEU Sodium 134 L (137-145) mmol/L Chloride 94 L (98-107) mmol/L Creatinine 0.51 L (0.52-1.04) mg/dL Glucose 276 H (74-99) mg/dL POC Glucose (mg/dL) (70-110) mg/dL Creatine Kinase 179 H (30-135) U/L Troponin I 0.401 H* (0.000-0.034) ng/mL Total Protein (6.3-8.2) g/dL Ur Specific [place] (1.001-1.035) Urine Protein (Negative) Urine Glucose (UA) (Negative) 01/21/25 01/21/25 01/21/25 Range/Units 16:10 16:10 18:42 APTT 18.9 L (22.0-30.0) sec D-Dimer 13.17 H (<0.60) mg/L FEU Sodium (137-145) mmol/L Chloride (98-107) mmol/L Creatinine (0.52-1.04) mg/dL Glucose (74-99) mg/dL POC Glucose (mg/dL) (70-110) mg/dL Creatine Kinase (30-135) U/L Troponin I 0.391 H* (0.000-0.034) ng/mL Total Protein (6.3-8.2) g/dL Ur Specific [place] (1.001-1.035) Urine Protein (Negative) Urine Glucose (UA) (Negative) 01/21/25 01/21/25 01/22/25 Range/Units 20:19 22:00 00:23 APTT 35.9 H (22.0-30.0) sec D-Dimer (<0.60) mg/L FEU Sodium (137-145) mmol/L Chloride (98-107) mmol/L Creatinine (0.52-1.04) mg/dL Glucose (74-99) mg/dL POC Glucose (mg/dL) 314 H (70-110) mg/dL Creatine Kinase (30-135) U/L Troponin I 0.325 H* (0.000-0.034) ng/mL Total Protein (6.3-8.2) g/dL Ur Specific [place] (1.001-1.035) Urine Protein (Negative) Urine Glucose (UA) (Negative) 01/22/25 01/22/25 01/22/25 Range/Units 06:00 06:00 06:20 APTT 40.6 H (22.0-30.0) sec D-Dimer (<0.60) mg/L FEU Sodium 133 L (137-145) mmol/L Chloride (98-107) mmol/L Creatinine (0.52-1.04) mg/dL Glucose 244 H (74-99) mg/dL POC Glucose (mg/dL) (70-110) mg/dL Creatine Kinase (30-135) U/L Troponin I (0.000-0.034) ng/mL Total Protein 6.2 L (6.3-8.2) g/dL Ur Specific [place] >1.050 H (1.001-1.035) Urine Protein Trace H (Negative) Urine Glucose (UA) 4+ H (Negative) 01/22/25 Range/Units 11:32 APTT (22.0-30.0) sec D-Dimer (<0.60) mg/L FEU Sodium (137-145) mmol/L Chloride (98-107) mmol/L Creatinine (0.52-1.04) mg/dL Glucose (74-99) mg/dL POC Glucose (mg/dL) 289 H (70-110) mg/dL Creatine Kinase (30-135) U/L Troponin I (0.000-0.034) ng/mL Total Protein (6.3-8.2) g/dL Ur Specific [place] (1.001-1.035) Urine Protein (Negative) Urine Glucose (UA) (Negative) Thrombosis Risk Factor Assmnt - Choose All That Apply Any of the Below Risk Factors Present?: Yes Each Factor Represents 1 point: Acute [place], Obesity (BMI >25) Each Risk Factor Represents 3 Points: Age 75 years or older Thrombosis Risk Factor Assessment Total Risk Factor Score: 5 Thrombosis Risk Factor Assessment Level: High Risk Assessment and Plan Assessment: 1. Bilateral PE; --CT angiogram showed filling defects within the pulmonary arterial vasculature, bilaterally, involving all lung lobes. Pulmonary trunk is dilated up to 43 mm. No evidence of right heart strain noted on CTA. -Bilateral lower extremity venous Doppler is negative for DVT -Patient is placed on IV heparin; 2D echo is ordered; plan is to transition to oral anticoagulation if no right heart strain on echocardiogram -- Pulmonary and cardiology on board 2. Elevated troponin; troponin elevated to 0.325 at time of presentation to ED; has been evaluated by cardiology -- Likely myocardial injury without evidence of ischemia -Cardiology recommending to switching to oral anticoagulation -Echocardiogram is ordered for further risk stratification 4. Hyperglycemia/diabetes mellitus without long-term insulin use; patient is on metformin 500 mg twice daily 5. Diabetic neuropathy; Neurontin 300 mg p.o. nightly DVT prophylaxis; SCD/IV heparin CODE STATUS; full code
[2025-01-22 20:40] LABS: Glucose,Whole Blood 215 mg/dL (70-110)
[2025-01-22] MEDS: metFORMIN 500 MG TAB PO SCH (21:08)
[2025-01-22] MEDS: GABAPENTIN 300 MG CAP PO SCH (21:08)
[2025-01-23 06:23] LABS: Glucose,Whole Blood 198 mg/dL (70-110)
--- NOTE | 2025-01-23 09:20 | P.PN ---
Subjective Progress Note Date: 01/23/25 The patient is a 74-year-old female patient with a past medical history significant for overweight and diabetes as well as multiple comorbid conditions who was admitted to the hospital with generalized weakness and fatigue. No other cardiovascular symptoms of any pain in the chest or shortness of breath or dizziness or lightness or any feeling of heart racing or fluttering or presyncope or syncope. She underwent further evaluation including cardiac enzymes with troponin came to be abnormal and EKG showing sinus mechanism with sinus tachycardia and S1Q3T3 pattern with nonspecific changes anteriorly as well. D-dimer came to be elevated and subsequently she underwent a CT scan of the chest which showed bilateral PE with no evidence of RV strain. Troponin is mildly elevated and NT proBNP is elevated with no echo as of now. No history of PE before. No recent surgery or history of travel for long distance as well. The physical examination is remarkable for regular rhythm with a soft systolic murmur at the right upper sternal border with clear breathing sounds bilaterally and no edema was noted in the lower extremities with please note that she underwent venous duplex study came to be unremarkable for DVT. January 23, 2025 The patient was seen and evaluated this morning. She is feeling better. The generalized weakness and fatigue have improved. No symptoms of chest pain or chest discomfort or shortness of breath at this point. She is hemodynamically stable which she is on heparin IV. I would keep the heparin IV till we have the results of the echocardiogram to rule out any cardiomyopathy. Otherwise the physical examination is remarkable for regular rhythm with a clear breathing sounds bilaterally and no edema was noted in the lower extremities Assessment Bilateral PE appears to be unprovoked Evidence of myocardial injury Abnormal EKG as described above Generalized weakness and fatigue Multiple comorbid conditions including diabetes and hypertension and dyslipidemia Plan Continue IV heparin for now Consider switching the patient to oral anticoagulation Obtain an echo for further risk stratification Further recommendation to follow the echocardiogram Objective - Vital Signs Vital signs: Vital Signs Temp 98.0 F 01/23/25 08:37 Pulse 96 01/23/25 08:37 Resp 18 01/23/25 08:37 BP 121/77 01/23/25 08:37 Pulse Ox 97 01/23/25 04:00 FiO2 Intake & Output 01/22/25 01/23/25 01/23/25 18:59 06:59 18:59 Intake Total 370.278 250 240 Output Total 1250 1000 Balance -879.722 250 -760 Intake: IV 10 Invasive Line 1 10 Intake, IV Titration 120.278 250 Amount Heparin Sod,Pork in 0.45% 120.278 250 NaCl 25,000 unit In 0.45 % NaCl 1 250ml.bag @ 18 UNITS/KG/HR 15.105 mls/hr IV .[id number] [facility] Rx#: [id number] Oral 240 240 Output: Urine 1250 1000 Other: Voiding Method Bedpan Bedpan # Voids 1 - Labs CBC & Chem 7: 01/22/25 06:00 01/22/25 06:00 Labs: Abnormal Lab Results - Last 24 Hours (Table) 01/22/25 01/22/25 01/23/25 Range/Units 11:32 20:38 06:22 POC Glucose (mg/dL) 289 H 215 H 198 H (70-110) mg/dL
[2025-01-23 09:30] LABS: Basophils % (A) 0 %; Eosinophils # (A) 0.4 k/uL (0-0.7); Eosinophils % (A) 4 %; HCT 41.2 % (34.0-46.0); HGB 13.4 gm/dL (11.4-16.0); Lymphocytes # (A) 1.5 k/uL (1.0-4.8); Lymphocytes % (A) 17 %; MCH 30.8 pg (25.0-35.0); MCHC 32.6 g/dL (31.0-37.0); MCV 94.4 fL (80.0-100.0); Monocytes # (A) 0.4 k/uL (0-1.0); Monocytes % (A) 5 %; Neutrophils # (A) 6.1 k/uL (1.3-7.7); Neutrophils % (A) 72 %; Platelet Count 271 k/uL (150-450); RBC 4.36 m/uL (3.80-5.40); RDW 12.4 % (11.5-15.5); WBC 8.5 k/uL (3.8-10.6)
[2025-01-23 09:56] LABS: African American GFR (CKD) >90 (>60 ml/min/1.73 sqM); Anion Gap 9 mmol/L; Blood Urea Nitrogen 6 mg/dL (7-17); Calcium 8.6 mg/dL (8.4-10.2); Carbon Dioxide 27 mmol/L (22-30); Chloride 100 mmol/L (98-107); Glucose 311 mg/dL (74-99); Non-African American GFR(CKD) >90 (>60 ml/min/1.73 sqM); Potassium 3.9 mmol/L (3.5-5.1); Sodium 136 mmol/L (137-145)
[2025-01-23] MEDS: HEPARIN SODIUM 1,000 UN/ML (10ML VL) IV PRN (09:57)
[2025-01-23 11:24] LABS: Glucose,Whole Blood 198 mg/dL (70-110)
--- NOTE | 2025-01-23 13:06 | P.PN ---
Subjective Progress Note Date: 01/23/25 Principal diagnosis: Shortness of breath. Pulmonary consultation dated January 22, 2025. 74-year-old female seen today in room 368. She went to the emergency department, with complaints of generalized weakness for 5 days. She apparently had no leg strength. In addition, she mentions that she was a bit short of breath. She was evaluated in the emergency room, and found to have a pulmonary embolism on CT angiogram. She was seen there by a PA I believe, and by the ER physician. The patient does have a history of CVA, and diabetes. Currently, the patient is on IV heparin, saline at 75 cc an hour, and room air. She does state that she has been inactive at home, for a number of days, prior to coming into the emergency department. Laboratory data includes a white count 8.4, hemoglobin 13.4, hematocrit 41.4, and a platelet count of 3 31,000. PTT is 40.6. Sodium 133, potassium 3.5, chlorides 98, CO2 28, BUN 13, creatinine 0.54. Glucose is 289. Troponin was 0.325. Urine was negative. Venous Doppler studies were negative for DVT. Chest x-ray showed bibasilar patchy airspace opacities. CT angiogram showed filling defects within the pulmonary arterial vasculature, bilaterally, involving all lung lobes. Pulmonary trunk is dilated up to 43 mm. No evidence of right heart strain noted on CTA. Progress note dated January 23, 2025. 74-year-old female seen yesterday in consultation. Please see my note above. The patient is seen today in room 368. The patient is currently on room air. She is receiving IV heparin. The patient is getting saline at 75 cc an hour. Cardiology is pending the echocardiogram, to decide whether or not she would be a candidate for EKOS, or suction thrombectomy. Clinically, not so much, as she appears very stable. She denies any shortness of breath, or difficulty breathing. She denies any chest pain or chest discomfort. White count 8.5, hemoglobin 13.4, hematocrit 41.2, platelet count 171,000. PTT is 36.9. Sodium 136, potassium 3.9, chlorides 100, CO2 27, BUN 6, and creatinine 0.51. Glucose is 198. Calcium is 8.6. Objective - Vital Signs Vital signs: Vital Signs Temp 99.4 F 01/23/25 11:24 Pulse 86 01/23/25 11:24 Resp 16 01/23/25 11:24 BP 112/71 01/23/25 11:24 Pulse Ox 95 01/23/25 11:24 FiO2 Intake & Output 01/22/25 01/23/25 01/23/25 18:59 06:59 18:59 Intake Total 370.278 250 336.223 Output Total 1250 1000 Balance -879.722 250 -663.777 Intake: IV 10 Invasive Line 1 10 Intake, IV Titration 120.278 250 96.223 Amount Heparin Sod,Pork in 0.45% 120.278 250 96.223 NaCl 25,000 unit In 0.45 % NaCl 1 250ml.bag @ 18 UNITS/KG/HR 15.105 mls/hr IV .[id number] [facility] Rx#: [id number] Oral 240 240 Output: Urine 1250 1000 Other: Voiding Method Bedpan Bedpan # Voids 1 - Exam No acute distress, oriented 3. Not requiring any supplemental oxygen. No conv ersational dyspnea, or use of accessory muscles. HEENT examination is grossly unremarkable. Mucous membranes are moist. No oral lesions. Neck supple. Full range of motion. No adenopathy thyromegaly or neck vein distention. Cardiovascular examination reveals regular rhythm rate. S1-S2 normal. No S3 or S4. No discernible murmur noted. Lungs reveal clear breath sounds. Breath sounds are equal bilaterally. No adventitious lung sounds including wheezes rhonchi or crackles. Abdomen soft bowel sounds are heard. No masses or tenderness. Extremities are intact. No cyanosis clubbing or edema. Skin is without rash or lesion. Neurologic examination is brief but nonfocal. - Labs CBC & Chem 7: 01/23/25 09:04 01/23/25 09:04 Labs: Abnormal Lab Results - Last 24 Hours (Table) 01/22/25 01/23/25 01/23/25 Range/Units 20:38 06:22 09:04 APTT (22.0-30.0) sec Sodium 136 L (137-145) mmol/L BUN 6 L (7-17) mg/dL Creatinine 0.51 L (0.52-1.04) mg/dL Glucose 311 H (74-99) mg/dL POC Glucose (mg/dL) 215 H 198 H (70-110) mg/dL 01/23/25 01/23/25 Range/Units 09:04 11:22 APTT 36.9 H (22.0-30.0) sec Sodium (137-145) mmol/L BUN (7-17) mg/dL Creatinine (0.52-1.04) mg/dL Glucose (74-99) mg/dL POC Glucose (mg/dL) 198 H (70-110) mg/dL Assessment and Plan Assessment: Bilateral pulmonary embolism, without evidence of right heart strain. No evidence of DVT on lower extremity Dopplers. History of CVA. History of diabetes mellitus, with diabetic neuropathy. Prior history of tobacco use. Sedentary lifestyle. Plan: Plan dated January 22, 2025. The patient is seen today in room 368. She is currently on IV heparin. She is getting saline at 75 cc an hour. She is on room air. The patient's CT scan is reviewed. No evidence of right heart strain, noted. Echocardiogram is pending. Troponins were elevated. Labs, x-rays, and medications are reviewed. I do not believe the patient is a candidate for suction thrombectomy or EKOS at this time. I will leave that up to cardiology, pending the echocardiogram. If no intervention is anticipated, the patient's IV heparin can be converted to a direct oral anticoagulant/factor Xa inhibitor. Dictation was produced using [employer] software. Please excuse any grammatical, word or spelling errors. Plan dated January 22, 2025. The patient is seen today in room 368. She continues on IV heparin. Cardiology has not transitioned her to a direct oral anticoagulant. They are waiting for the results of the echocardiogram. Clinically, she is very stable. She is not requiring any supplemental oxygen. She denies any shortness of breath, difficulty breathing, or chest pain. Labs, x-rays, medications are reviewed. I do not believe she will be a candidate for either EKOS or suction thrombectomy. We will await and see what cardiology says. Dictation was produced using [employer] software. Please excuse any grammatical, word or spelling errors. Time with Patient: Less than 30
[2025-01-23 16:19] LABS: Glucose,Whole Blood 188 mg/dL (70-110)
--- NOTE | 2025-01-23 17:14 | P.PN ---
Subjective Progress Note Date: 01/23/25 74-year-old female, history of diabetes mellitus, CVA/TIA, presented to the emergency department, with complaints of generalized weakness for 5 days along with shortness of breath. She apparently had no leg strength. - She was evaluated in the emergency room, and found to have a pulmonary embolism on CT angiogram. Currently, the patient is on IV heparin, saline at 75 cc an hour, and room air. --Laboratory data includes a white count 8.4, hemoglobin 13.4, hematocrit 41.4, and a platelet count of 3 31,000. PTT is 40.6. Sodium 133, potassium 3.5, chlorides 98, CO2 28, BUN 13, creatinine 0.54. Glucose is 289. Troponin was 0.325. -Urine was negative. -- Venous Doppler studies were negative for DVT. -Chest x-ray showed bibasilar patchy airspace opacities. CT angiogram showed filling defects within the pulmonary arterial vasculature, bilaterally, involving all lung lobes. Pulmonary trunk is dilated up to 43 mm. No evidence of right heart strain noted on CTA. Objective - Vital Signs Vital signs: Vital Signs Temp 98.0 F 01/23/25 08:37 Pulse 96 01/23/25 08:37 Resp 18 01/23/25 08:37 BP 121/77 01/23/25 08:37 Pulse Ox 97 01/23/25 04:00 FiO2 Intake & Output 01/22/25 01/23/25 01/23/25 18:59 06:59 18:59 Intake Total 370.278 250 336.223 Output Total 1250 1000 Balance -879.722 250 -663.777 Intake: IV 10 Invasive Line 1 10 Intake, IV Titration 120.278 250 96.223 Amount Heparin Sod,Pork in 0.45% 120.278 250 96.223 NaCl 25,000 unit In 0.45 % NaCl 1 250ml.bag @ 18 UNITS/KG/HR 15.105 mls/hr IV .[id number] [facility] Rx#: [id number] Oral 240 240 Output: Urine 1250 1000 Other: Voiding Method Bedpan Bedpan # Voids 1 - Exam General appearance: alert, in no apparent distress Head exam: Present: atraumatic, normocephalic, normal inspection Eye exam: Present: normal appearance, PERRL, EOMI. Absent: scleral icterus, conjunctival injection, periorbital swelling ENT exam: Present: normal exam, mucous membranes moist Neck exam: Present: normal inspection. Absent: tenderness, meningismus, lymphadenopathy Respiratory exam: Present: normal lung sounds bilaterally. Absent: respiratory distress, wheezes, rales, rhonchi, stridor Cardiovascular Exam: Present: normal rhythm, tachycardia, normal heart sounds. Absent: systolic murmur, diastolic murmur, rubs, gallop, clicks GI/Abdominal exam: Present: soft, normal bowel sounds. Absent: distended, tenderness, guarding, rebound, rigid Extremities exam: Present: normal inspection, full ROM, normal capillary refill. Absent: tenderness, pedal edema, joint swelling, calf tenderness Neurological exam: Present: alert, oriented X3, CN II-XII intact Skin exam: Present: warm, dry, intact, normal color. Absent: rash - Labs CBC & Chem 7: 01/23/25 09:04 01/23/25 09:04 Labs: Abnormal Lab Results - Last 24 Hours (Table) 01/22/25 01/22/25 01/23/25 Range/Units 11:32 20:38 06:22 APTT (22.0-30.0) sec Sodium (137-145) mmol/L BUN (7-17) mg/dL Creatinine (0.52-1.04) mg/dL Glucose (74-99) mg/dL POC Glucose (mg/dL) 289 H 215 H 198 H (70-110) mg/dL 01/23/25 01/23/25 Range/Units 09:04 09:04 APTT 36.9 H (22.0-30.0) sec Sodium 136 L (137-145) mmol/L BUN 6 L (7-17) mg/dL Creatinine 0.51 L (0.52-1.04) mg/dL Glucose 311 H (74-99) mg/dL POC Glucose (mg/dL) (70-110) mg/dL Assessment and Plan Assessment: 1. Bilateral PE; --CT angiogram showed filling defects within the pulmonary arterial vasculature, bilaterally, involving all lung lobes. Pulmonary trunk is dilated up to 43 mm. No evidence of right heart strain noted on CTA. -Bilateral lower extremity venous Doppler is negative for DVT -Patient is placed on IV heparin; 2D echo is ordered; plan is to transition to oral anticoagulation if no right heart strain on echocardiogram -- Pulmonary and cardiology on board 2. Elevated troponin; troponin elevated to 0.325 at time of presentation to ED; has been evaluated by cardiology -- Likely myocardial injury without evidence of ischemia -Cardiology recommending to switching to oral anticoagulation -Echocardiogram is ordered for further risk stratification 4. Hyperglycemia/diabetes mellitus without long-term insulin use; patient is on metformin 500 mg twice daily 5. Diabetic neuropathy; Neurontin 300 mg p.o. nightly DVT prophylaxis; SCD/IV heparin CODE STATUS; full code
[2025-01-23 20:24] LABS: Glucose,Whole Blood 231 mg/dL (70-110)
[2025-01-24 06:19] LABS: Glucose,Whole Blood 194 mg/dL (70-110)
[2025-01-24 07:45] LABS: Basophils % (A) 1 %; Eosinophils % (A) 5 %; HCT 40.6 % (34.0-46.0); HGB 13.1 gm/dL (11.4-16.0); Lymphocytes # (A) 1.5 k/uL (1.0-4.8); Lymphocytes % (A) 17 %; MCH 30.6 pg (25.0-35.0); MCHC 32.4 g/dL (31.0-37.0); MCV 94.6 fL (80.0-100.0); Mean Platelet Volume 8.7; Monocytes % (A) 4 %; Neutrophils # (A) 6.2 k/uL (1.3-7.7); Neutrophils % (A) 73 %; Platelet Count 282 k/uL (150-450); RBC 4.29 m/uL (3.80-5.40); RDW 12.7 % (11.5-15.5); WBC 8.5 k/uL (3.8-10.6)
[2025-01-24 07:46] LABS: Eosinophils # (A) 0.4 k/uL (0-0.7); Monocytes # (A) 0.3 k/uL (0-1.0)
[2025-01-24 07:52] LABS: African American GFR (CKD) >90 (>60 ml/min/1.73 sqM); Anion Gap 8 mmol/L; Blood Urea Nitrogen 5 mg/dL (7-17); Calcium 9.3 mg/dL (8.4-10.2); Carbon Dioxide 26 mmol/L (22-30); Chloride 103 mmol/L (98-107); Glucose 203 mg/dL (74-99); Non-African American GFR(CKD) >90 (>60 ml/min/1.73 sqM); Potassium 4.1 mmol/L (3.5-5.1); Sodium 137 mmol/L (137-145)
--- NOTE | 2025-01-24 08:24 | P.PN ---
Subjective Progress Note Date: 01/24/25 The patient is a 74-year-old female patient with a past medical history significant for overweight and diabetes as well as multiple comorbid conditions who was admitted to the hospital with generalized weakness and fatigue. No other cardiovascular symptoms of any pain in the chest or shortness of breath or dizziness or lightness or any feeling of heart racing or fluttering or presyncope or syncope. She underwent further evaluation including cardiac enzymes with troponin came to be abnormal and EKG showing sinus mechanism with sinus tachycardia and S1Q3T3 pattern with nonspecific changes anteriorly as well. D-dimer came to be elevated and subsequently she underwent a CT scan of the chest which showed bilateral PE with no evidence of RV strain. Troponin is mildly elevated and NT proBNP is elevated with no echo as of now. No history of PE before. No recent surgery or history of travel for long distance as well. The physical examination is remarkable for regular rhythm with a soft systolic murmur at the right upper sternal border with clear breathing sounds bilaterally and no edema was noted in the lower extremities with please note that she underwent venous duplex study came to be unremarkable for DVT. January 23, 2025 The patient was seen and evaluated this morning. She is feeling better. The generalized weakness and fatigue have improved. No symptoms of chest pain or chest discomfort or shortness of breath at this point. She is hemodynamically stable which she is on heparin IV. I would keep the heparin IV till we have the results of the echocardiogram to rule out any cardiomyopathy. Otherwise the physical examination is remarkable for regular rhythm with a clear breathing sounds bilaterally and no edema was noted in the lower extremities January 24, 2025 The patient was seen and evaluated this morning. She is asymptomatic which is hemodynamically stable with the echo still pending. She refused to take any heparin. The physical examination appears to be unchanged compared to before. Assessment Bilateral PE appears to be unprovoked Evidence of myocardial injury Abnormal EKG as described above Generalized weakness and fatigue Multiple comorbid conditions including diabetes and hypertension and dyslipidemia Plan The patient is refusing to take any IV anticoagulation Follow-up on the echo Consider starting the patient on oral anticoagulation if the echo is unremarkable Possible discharge later on today Objective - Vital Signs Vital signs: Vital Signs Temp 98.1 F 01/24/25 07:59 Pulse 88 01/24/25 07:59 Resp 18 01/24/25 07:59 BP 113/67 01/24/25 07:59 Pulse Ox 95 03/28/25 07:59 FiO2 Intake & Output 01/23/25 01/24/25 01/24/25 18:59 06:59 18:59 Intake Total 710.065 Output Total 1450 200 450 Balance -739.935 -200 -450 Intake: Intake, IV Titration 230.065 Amount Heparin Sod,Pork in 0.45% 230.065 NaCl 25,000 unit In 0.45 % NaCl 1 250ml.bag @ 18 UNITS/KG/HR 15.105 mls/hr IV .[id number] [facility] Rx#: [id number] Oral 480 Output: Urine 1450 200 450 Other: Voiding Method Bedpan Bedpan # Bowel Movements 1 - Labs CBC & Chem 7: 01/24/25 07:33 01/24/25 07:33 Labs: Abnormal Lab Results - Last 24 Hours (Table) 01/23/25 01/23/25 01/23/25 Range/Units 09:04 09:04 11:22 APTT 36.9 H (22.0-30.0) sec Sodium 136 L (137-145) mmol/L BUN 6 L (7-17) mg/dL Creatinine 0.51 L (0.52-1.04) mg/dL Glucose 311 H (74-99) mg/dL POC Glucose (mg/dL) 198 H (70-110) mg/dL 01/23/25 01/23/25 01/23/25 Range/Units 15:32 16:18 20:23 APTT 35.4 H (22.0-30.0) sec Sodium (137-145) mmol/L BUN (7-17) mg/dL Creatinine (0.52-1.04) mg/dL Glucose (74-99) mg/dL POC Glucose (mg/dL) 188 H 231 H (70-110) mg/dL 01/24/25 01/24/25 Range/Units 06:17 07:33 APTT (22.0-30.0) sec Sodium (137-145) mmol/L BUN 5 L (7-17) mg/dL Creatinine 0.45 L (0.52-1.04) mg/dL Glucose 203 H (74-99) mg/dL POC Glucose (mg/dL) 194 H (70-110) mg/dL
[2025-01-24] MEDS ORDERED: ALPRAZolam 0.25 MG TAB PO PRN (11:03)
[2025-01-24] MEDS ORDERED: NITROGLYCERIN SL TABS 0.4 MG TAB SUBLINGUAL PRN (11:03)
[2025-01-24] MEDS ORDERED: ALPRAZolam 0.5 MG TAB PO PRN (11:03)
--- NOTE | 2025-01-24 11:09 | CA ---
Transthoracic Echo Report Name: Orquidea Tomlinson Age: 74 Gender: F : 1950 Exam Date: 01/24/2025 08:49 Exam Location: [place] [facility] Ht (in): 63 Wt (lb): 205 Ordering Physician: Mary Sauceda MD Attending/Referring Phys: Labor Conciliator Georgina Naidu RDCS Procedure CPT: Indications: elevated troponin, r/o RV strain Cardiac Hx: Technical Quality: Technically difficult study Contrast 1: Definity Total Dose (mL): 2 Contrast 2: Total Dose (mL): MEASUREMENTS (Male / Female) Normal Values 2D ECHO LV Diastolic Diameter PLAX 4.6 cm 4.2 - 5.9 / 3.9 - 5.3 cm LV Systolic Diameter PLAX 2.9 cm IVS Diastolic Thickness 1.4 cm 0.6 - 1.0 / 0.6 - 0.9 cm LVPW Diastolic Thickness 1.3 cm 0.6 - 1.0 / 0.6 - 0.9 cm LV Relative Wall Thickness 0.6 RV Internal Dim ED PLAX 2.6 cm LA Systolic Diameter LX 3.6 cm 3.0 - 4.0 / 2.7 - 3.8 cm LV Diastolic Volume MOD BP 55.0 cm??? 67 - 155 / 56 - 104 cm??? LV Systolic Volume MOD BP 19.1 cm??? 22 - 58 / 19 - 49 cm??? LV Ejection Fraction MOD BP 65.2 % >= 55 % LV Cardiac Index MOD BP 1485.2 cm???/min???m??? LV Diastolic Volume MOD 4C 49.3 cm??? LV Systolic Volume MOD 4C 20.1 cm??? LV Ejection Fraction MOD 4C 59.3 % LV Cardiac Index MOD 4C 1209.9 cm???/min???m??? LV Diastolic Length 4C 7.5 cm LV Systolic Length 4C 6.4 cm LV Diastolic Volume MOD 2C 50.1 cm??? LV Systolic Volume MOD 2C 18.9 cm??? LV Ejection Fraction MOD 2C 62.2 % LV Cardiac Index MOD 2C 1292.4 cm???/min???m??? LV Diastolic Length 2C 6.0 cm LV Systolic Length 2C 6.2 cm LA Volume 65.4 cm??? 18 - 58 / 22 - 52 cm??? LA Volume Index 31.5 cm???/m??? 16 - 28 cm???/m??? M-MODE Aortic Root Diameter MM 3.4 cm DOPPLER AV Peak Velocity 156.4 cm/s AV Peak Gradient 9.8 mmHg MV Area PHT 3.8 cm??? Mitral E Point Velocity 92.6 cm/s Mitral A Point Velocity 120.2 cm/s Mitral E to A Ratio 0.8 MV Deceleration Time 201.1 ms TR Peak Velocity 255.3 cm/s TR Peak Gradient 26.1 mmHg Right Ventricular Systolic Press 30.0 mmHg FINDINGS Left Ventricle Left ventricular ejection fraction is estimated at 45-50 %. Moderately increased septal wall thickness. Moderately increased posterior wall thickness. Apical quesada hypokinesis Right Ventricle Normal right ventricular size and function. Right ventricular systolic pressure within normal limits. Right Atrium Normal right atrial size. No right atrial thrombus or mass seen. Left Atrium Mildly increased left atrial volume. Mildly increased left atrial area. No left atrial thrombus or mass present. Mitral Valve Mitral valve thickened. No mitral stenosis, regurgitation or prolapse. Aortic Valve Trileaflet aortic valve. Thickened aortic valve without stenosis. Tricuspid Valve Structurally normal tricuspid valve. Mild tricuspid regurgitation. Pulmonic Valve Pulmonic valve not well visualized. Pericardium No pericardial effusion. Aorta Normal size aortic root and proximal ascending aorta. CONCLUSIONS Mild LV systolic dysfunction Apical hypokinesis Normal RV systolic pressure Normal right ventricular size Previewed by: Dr. Abdulaziz Noble MD (Electronically Signed) Final Date: 24 January 2025 11:08
--- NOTE | 2025-01-24 11:34 | P.PN ---
Subjective Progress Note Date: 01/24/25 Principal diagnosis: Shortness of breath. Pulmonary consultation dated January 22, 2025. 74-year-old female seen today in room 368. She went to the emergency department, with complaints of generalized weakness for 5 days. She apparently had no leg strength. In addition, she mentions that she was a bit short of breath. She was evaluated in the emergency room, and found to have a pulmonary embolism on CT angiogram. She was seen there by a PA I believe, and by the ER physician. The patient does have a history of CVA, and diabetes. Currently, the patient is on IV heparin, saline at 75 cc an hour, and room air. She does state that she has been inactive at home, for a number of days, prior to coming into the emergency department. Laboratory data includes a white count 8.4, hemoglobin 13.4, hematocrit 41.4, and a platelet count of 3 31,000. PTT is 40.6. Sodium 133, potassium 3.5, chlorides 98, CO2 28, BUN 13, creatinine 0.54. Glucose is 289. Troponin was 0.325. Urine was negative. Venous Doppler studies were negative for DVT. Chest x-ray showed bibasilar patchy airspace opacities. CT angiogram showed filling defects within the pulmonary arterial vasculature, bilaterally, involving all lung lobes. Pulmonary trunk is dilated up to 43 mm. No evidence of right heart strain noted on CTA. Progress note dated January 23, 2025. 74-year-old female seen yesterday in consultation. Please see my note above. The patient is seen today in room 368. The patient is currently on room air. She is receiving IV heparin. The patient is getting saline at 75 cc an hour. Cardiology is pending the echocardiogram, to decide whether or not she would be a candidate for EKOS, or suction thrombectomy. Clinically, not so much, as she appears very stable. She denies any shortness of breath, or difficulty breathing. She denies any chest pain or chest discomfort. White count 8.5, hemoglobin 13.4, hematocrit 41.2, platelet count 171,000. PTT is 36.9. Sodium 136, potassium 3.9, chlorides 100, CO2 27, BUN 6, and creatinine 0.51. Glucose is 198. Calcium is 8.6. Progress note dated January 24, 2025. 74-year-old female seen today in room 368. The patient is doing well. She is on room air. No IV fluids. The patient is apparently refusing IV heparin. Not sure that she will take an oral anticoagulant. Clinically, she is doing well. She denies any shortness of breath, cough, wheezing, chest tightness, or phlegm production. White count 8.5, hemoglobin 13.1, hematocrit 40.6, platelet count normal. Glucose 137, potassium 4.1, chlorides 103, CO2 26, BUN 5, creatinine 0.45. Glucose is 203. Calcium is 9.3. Objective - Vital Signs Vital signs: Vital Signs Temp 98.1 F 01/24/25 07:59 Pulse 88 01/24/25 07:59 Resp 18 01/24/25 07:59 BP 113/67 01/24/25 07:59 Pulse Ox 95 01/24/25 07:59 FiO2 Intake & Output 01/23/25 01/24/25 01/24/25 18:59 06:59 18:59 Intake Total 710.065 225.078 Output Total 1450 200 450 Balance -739.935 -200 -224.922 Intake: Intake, IV Titration 230.065 225.078 Amount Heparin Sod,Pork in 0.45% 230.065 225.078 NaCl 25,000 unit In 0.45 % NaCl 1 250ml.bag @ 18 UNITS/KG/HR 15.105 mls/hr IV .[id number] [facility] Rx#: [id number] Oral 480 Output: Urine 1450 200 450 Other: Voiding Method Bedpan Bedpan # Bowel Movements 1 - Exam No acute distress, oriented 3. Not requiring any supplemental oxygen. No conversational dyspnea, or use of accessory muscles. HEENT examination is grossly unremarkable. Mucous membranes are moist. No oral lesions. Neck supple. Full range of motion. No adenopathy thyromegaly or neck vein distention. Cardiovascular examination reveals regular rhythm rate. S1-S2 normal. No S3 or S4. No discernible murmur noted. Lungs reveal clear breath sounds. Breath sounds are equal bilaterally. No adventitious lung sounds including wheezes rhonchi or crackles. Abdomen soft bowel sounds are heard. No masses or tenderness. Extremities are intact. No cyanosis clubbing or edema. Skin is without rash or lesion. Neurologic examination is brief but nonfocal. - Labs CBC & Chem 7: 01/24/25 07:33 01/24/25 07:33 Labs: Abnormal Lab Results - Last 24 Hours (Table) 01/23/25 01/23/25 01/23/25 Range/Units 15:32 16:18 20:23 APTT 35.4 H (22.0-30.0) sec BUN (7-17) mg/dL Creatinine (0.52-1.04) mg/dL Glucose (74-99) mg/dL POC Glucose (mg/dL) 188 H 231 H (70-110) mg/dL 01/24/25 01/24/25 01/24/25 Range/Units 06:17 07:29 07:33 APTT 21.5 L (22.0-30.0) sec BUN 5 L (7-17) mg/dL Creatinine 0.45 L (0.52-1.04) mg/dL Glucose 203 H (74-99) mg/dL POC Glucose (mg/dL) 194 H (70-110) mg/dL Assessment and Plan Assessment: Bilateral pulmonary embolism, without evidence of right heart strain. No evidence of DVT on lower extremity Dopplers. History of CVA. History of diabetes mellitus, with diabetic neuropathy. Prior history of tobacco use. Sedentary lifestyle. Plan: Plan dated January 22, 2025. The patient is seen today in room 368. She is currently on IV heparin. She is getting saline at 75 cc an hour. She is on room air. The patient's CT scan is reviewed. No evidence of right heart strain, noted. Echocardiogram is pending. Troponins were elevated. Labs, x-rays, and medications are reviewed. I do not believe the patient is a candidate for suction thrombectomy or EKOS at this time. I will leave that up to cardiology, pending the echocardiogram. If no intervention is anticipated, the patient's IV heparin can be converted to a direct oral anticoagulant/factor Xa inhibitor. Dictation was produced using [employer] dictation software. Please excuse any grammatical, word or spelling errors. Plan dated January 22, 2025. The patient is seen today in room 368. She continues on IV heparin. Cardiology has not transitioned her to a direct oral anticoagulant. They are waiting for the results of the echocardiogram. Clinically, she is very stable. She is not requiring any supplemental oxygen. She denies any shortness of breath, difficulty breathing, or chest pain. Labs, x-rays, medications are reviewed. I do not believe she will be a candidate for either EKOS or suction thrombectomy. We will await and see what cardiology says. Dictation was produced using [employer] software. Please excuse any grammatical, word or spelling errors. Plan dated January 23, 2025. The patient is seen today in room 368. The patient is currently on room air. She apparently is refusing IV heparin. Not sure that she will take a direct oral anticoagulant. Clinically, the patient is very stable. She is on room air. She is not receiving any IV fluids. Echocardiogram is currently pending. Labs, x-rays, and all medications are reviewed. The patient's overall prognosis remains guarded. We will continue to follow. Dictation was produced using [employer] software. Please excuse any grammatical, word or spelling errors. Time with Patient: Less than 30
[2025-01-24] MEDS: SODIUM CHLORIDE 0.9% 1,000 ML in EMPTY BAG 1 BAG IV SCH (12:41)
[2025-01-24] MEDS: ASPIRIN 325 MG TAB PO STA (12:41)
[2025-01-24] MEDS: ATORVASTATIN 80 MG TAB PO STA (12:41)
[2025-01-24] MEDS: HEPARIN SODIUM,PORCINE (1 ML) 2,500 UNIT in SODIUM CHLORIDE 0.9% 250 ML IRRIGATION ONE (14:46)
[2025-01-24] MEDS: HEPARIN SODIUM,PORCINE 10,000 UNIT in SODIUM CHLORIDE 0.9% 1,000 ML IRRIGATION ONE (14:46)
[2025-01-24] MEDS: SODIUM CHLORIDE 0.9% 1,000 ML IV ONE (14:46)
[2025-01-24] MEDS: LIDOCAINE 1% INJ 10MG/ML (20 ML MDV) SQ ONE (15:13)
[2025-01-24] MEDS: VERAPAMIL SYRINGE (5 MG/10 ML) INTRAARTER ONE (15:13)
[2025-01-24] MEDS: MIDAZOLAM 2 MG/2 ML VIAL IVP ONE (15:13)
[2025-01-24] MEDS: HEPARIN SODIUM 1,000 UN/ML (10ML VL) IVP ONE (15:15)
[2025-01-24] MEDS: IOPAMIDOL-370 100ML BTL INJ ONE (15:23)
[2025-01-24] MEDS ORDERED: RX INFO: IV CONTRAST WAS GIVEN 1 EACH MISC MISCELLANE PRN (15:25)
[2025-01-24 16:19] LABS: Glucose,Whole Blood 144 mg/dL (70-110)
[2025-01-24] MEDS: SODIUM CHLORIDE 0.9% 1,000 ML IV SCH (16:58)
--- NOTE | 2025-01-24 18:20 | P.PCN ---
Date of Procedure: 01/24/25 Operative Findings: CARDIAC CATHETERIZATION PERFORMING PHYSICIAN: Dallas De Souza MD, RPVI PROCEDURE PERFORMED: 1. Selective right and left coronary angiogram 2. Ultrasound-guided access of the right radial artery INDICATION: This is a 18-wjuk[age]gps-year-old female patient with multiple comorbid conditions who was admitted to the hospital with shortness of breath and she was found to have abnormal cardiac enzymes and abnormal D-dimer with the CT scan showed PE. Subsequently she underwent an echo which revealed cardiomyopathy with evidence of wall motion abnormalities concerning for severe underlying coronary artery disease. Giving the abnormalities on the EKG and the abnormalities on the echocardiogram and the abnormal cardiac enzymes and giving her multiple risk factors I decided to pursue with coronary angiogram. COMPLICATION: None APPROACH: Right radial artery LEVEL OF SEDATION: Moderate with a sedation length of 18 minutes PROCEDURE DESCRIPTION: After obtaining an informed consent, the patient was brought to cardiac clinical laboratory science professor. Local anesthesia was performed using lidocaine subcutaneously. The right radial artery was cannulated using Seldinger technique, under ultrasound guidance, the guidewire passed easily, following that we advanced a 5-Faroese sheath dilator assembly, the wire and dilator were removed and sheath was flushed. Following that, 2 mg of verapamil along with 5000 unit heparin were given. Selective right and left coronary angiogram using a 5-Faroese JR4 and JL 3.5 catheters. The procedure was completed there was no complication. SELECTIVE CORONARY ANGIOGRAM: The right coronary artery: Heavily calcified vessel appears to be occluded by the ostium and fills by bridging collateral only Left main: Extremely calcified with at least 50 to 60% disease involving the midshaft of the left main. The left circumflex: Large caliber vessel and codominant vessel. The ostial left circumflex appeared to be diseased with a lesion appears to be in the range of 70 to 80%. The left circumflex proximally gives rise into a large OM branch which appeared to have mild disease only. The left anterior descending artery: Large caliber vessel and extremely calcified vessel and appears to be occluded in the proximal to midportion. The LAD gives rise into the first and second diagonal branches. CONCLUSION: 1. Extremely calcified right and left coronary system 2. Occluded RCA by the ostium with a chronic occlusion and bridging collateral 3. Severe disease involving the midshaft of the left main 4. Severe disease involving the ostium of the LCx 5. Occluded proximal left anterior descending artery POSTPROCEDURE MANAGEMENT: Giving the above anatomy I advised the patient to be seen by cardiothoracic surgical team for an evaluation of CABG.
[2025-01-24 20:05] LABS: Glucose,Whole Blood 188 mg/dL (70-110)
[2025-01-24] MEDS: METOPROLOL TARTRATE 12.5 MG TAB PO SCH (20:43)
[2025-01-24] MEDS: ENOXAPARIN 100 MG/ML SYRINGE SQ SCH (20:44)
[2025-01-25 06:08] LABS: Glucose,Whole Blood 156 mg/dL (70-110)
[2025-01-25] MEDS ORDERED: HEPARIN SODIUM,PORCINE (1 ML) 2,500 UNIT in SODIUM CHLORIDE 0.9% 250 ML IRRIGATION PRN (07:00)
[2025-01-25] MEDS ORDERED: HEPARIN SODIUM,PORCINE 10,000 UNIT in SODIUM CHLORIDE 0.9% 1,000 ML IRRIGATION PRN (07:00)
--- NOTE | 2025-01-25 07:31 | P.PN ---
Subjective Progress Note Date: 01/25/25 The patient is a 74-year-old female patient with a past medical history significant for overweight and diabetes as well as multiple comorbid conditions who was admitted to the hospital with generalized weakness and fatigue. No other cardiovascular symptoms of any pain in the chest or shortness of breath or dizziness or lightness or any feeling of heart racing or fluttering or presyncope or syncope. She underwent further evaluation including cardiac enzymes with troponin came to be abnormal and EKG showing sinus mechanism with sinus tachycardia and S1Q3T3 pattern with nonspecific changes anteriorly as well. D-dimer came to be elevated and subsequently she underwent a CT scan of the chest which showed bilateral PE with no evidence of RV strain. Troponin is mildly elevated and NT proBNP is elevated with no echo as of now. No history of PE before. No recent surgery or history of travel for long distance as well. The physical examination is remarkable for regular rhythm with a soft systolic murmur at the right upper sternal border with clear breathing sounds bilaterally and no edema was noted in the lower extremities with please note that she underwent venous duplex study came to be unremarkable for DVT. January 23, 2025 The patient was seen and evaluated this morning. She is feeling better. The generalized weakness and fatigue have improved. No symptoms of chest pain or chest discomfort or shortness of breath at this point. She is hemodynamically stable which she is on heparin IV. I would keep the heparin IV till we have the results of the echocardiogram to rule out any cardiomyopathy. Otherwise the physical examination is remarkable for regular rhythm with a clear breathing sounds bilaterally and no edema was noted in the lower extremities January 24, 2025 The patient was seen and evaluated this morning. She is asymptomatic which is hemodynamically stable with the echo still pending. She refused to take any heparin. The physical examination appears to be unchanged compared to before. January 25, 2025 The patient was seen and evaluated this morning. She is asymptomatic. She is hemodynamically stable besides mild sinus tachycardia and I am going to increase the dose of beta-yani. Otherwise she is on statin. She is on aspirin. She underwent yesterday heart catheterization which revealed severe left main coronary artery disease and occluded LAD and occluded RCA. I advised the patient to be evaluated by the surgeon to evaluate the best way of revas cularization versus medical treatment only. The physical examination is remarkable for regular rhythm with a soft systolic murmur and clear breathing sounds bilaterally and no edema was noted Assessment Severe coronary artery disease as described above Bilateral PE appears to be unprovoked Evidence of myocardial injury Abnormal EKG as described above Generalized weakness and fatigue Multiple comorbid conditions including diabetes and hypertension and dyslipidemia Plan Continue the current medical regimen Currently she is on Lovenox Increase the dose of beta-yani Continue statin Follow-up after she will be evaluated by the cardiothoracic surgical team Objective - Vital Signs Vital signs: Vital Signs Temp 98.0 F 01/24/25 11:10 Pulse 96 01/24/25 20:40 Resp 20 01/24/25 20:40 BP 122/71 01/24/25 20:40 Pulse Ox 93 L 01/24/25 20:40 FiO2 Intake & Output 01/24/25 01/25/25 01/25/25 18:59 06:59 18:59 Intake Total 695.078 Output Total 650 1300 Balance 45.078 -1300 Weight 101.4 kg Intake: IV 230 Intake, IV Titration 225.078 Amount Heparin Sod,Pork in 0.45% 225.078 NaCl 25,000 unit In 0.45 % NaCl 1 250ml.bag @ 18 UNITS/KG/HR 15.105 mls/hr IV .[id number] [facility] Rx#: [id number] Oral 240 Output: Urine 650 1300 Other: # Voids 2 - Labs CBC & Chem 7: 01/24/25 07:33 01/24/25 07:33 Labs: Abnormal Lab Results - Last 24 Hours (Table) 01/24/25 01/24/25 01/24/25 Range/Units 07:29 07:33 16:18 APTT 21.5 L (22.0-30.0) sec BUN 5 L (7-17) mg/dL Creatinine 0.45 L (0.52-1.04) mg/dL Glucose 203 H (74-99) mg/dL POC Glucose (mg/dL) 144 H (70-110) mg/dL 01/24/25 01/25/25 Range/Units 20:04 06:08 APTT (22.0-30.0) sec BUN (7-17) mg/dL Creatinine (0.52-1.04) mg/dL Glucose (74-99) mg/dL POC Glucose (mg/dL) 188 H 156 H (70-110) mg/dL
[2025-01-25] MEDS: METOPROLOL TARTRATE 25 MG TAB PO SCH (08:13)
--- NOTE | 2025-01-25 09:09 | P.GSCN ---
History of Present Illness Consult date: 01/25/25 Reason for Consult: Coronary artery disease, evaluation for CABG Requesting physician: Dallas De Souza History of present illness: This is a 74-year-old female who follows outpatient with Dr. Hooper for primary care. She has a previous medical history of diabetes with peripheral neuropathy as well as knee replacement. She denies any other medical history including CAD, hypertension, hyperlipidemia, stroke, tobacco dependence, although chart review reveals history of CVA and previous tobacco use. She presented to [facility] emergency room for lower extremity weakness. She denies having any chest pain, shortness of breath, nausea, sick contacts. In the emergency room she had lower extremity Dopplers which were negative for DVTs. Chest x-ray demonstrated atelectasis. Lab work revealed WBC 7.7, hemoglobin 15.8, creatinine 0.51, BNP 3510, troponin 0.4, and D-dimer 13.17. Due to quite elevated D-dimer CTA of the chest was completed demonstrating bilateral pulmonary emboli. He was started on IV heparin and admitted for evaluation and treatment with consultation placed to cardiology as well as pulmonology. Workup included transthoracic echocardiogram revealing EF 45 to 50%, mild tricuspid regurgitation, normal RV systolic pressure and size. She was recommended to go undergo heart catheterization which was completed yesterday by Dr. De Souza revealing left main stenosis 50 to 60%, chronic total occlusion of the right coronary artery with collateral circulation, occluded proximal LAD as well as 70 to 80% stenosis of the ostial circumflex coronary artery. Due to these findings consultation was placed to cardiothoracic surgery for surgical revascularization recommendations. Review of Systems Review of systems was completed and was negative except as noted - Constitutional Reports as per HPI, Reports weakness Past Medical History Past Medical History: Coronary Artery Disease (CAD), Diabetes Mellitus Additional Past Medical History / Comment(s): neuropathy; bilateral pulmonary emboli 01/21/2025 History of Any Multi-Drug Resistant Organisms: None Reported Past Surgical History: Appendectomy, Orthopedic Surgery Additional Past Surgical History / Comment(s): left knee surgery Past Anesthesia/Blood Transfusion Reactions: No Reported Reaction Past Psychological History: No Psychological Hx Reported Smoking Status: Never smoker Past Alcohol Use History: None Reported Past Drug Use History: None Reported - Past Family History Father Additional Family Medical History / Comment(s): of unknown cause Mother Additional Family Medical History / Comment(s): unknown cause Medications and Allergies Home Medications Medication Instructions Recorded Confirmed Type Gabapentin [Neurontin] 300 mg PO HS 01/21/25 01/21/25 History metFORMIN HCL [Glucophage] 1,000 mg PO BID 01/21/25 01/21/25 History Allergies Allergy/AdvReac Type Severity Reaction Status Date / Time latex Allergy Itching Verified 01/21/25 16:30 azithromycin AdvReac Rash/Hives Verified 01/21/25 16:30 Surgical - Exam Vital Signs Temp Pulse Resp BP Pulse Ox 98.2 F 113 H 18 153/85 93 L 01/21/25 13:23 01/21/25 13:23 01/21/25 13:23 01/21/25 13:23 01/21/25 13:23 CONSTITUTIONAL: Awake and alert, appears comfortable, well-developed, well- nourished, no pain, no acute distress EYES: Pupils equal, round, reactive to light, normal ocular movement ENT: Moist mucous membranes without oral lesions present NECK: No masses, no bruits, trachea midline RESPIRATORY: Lungs sounds clear to auscultation bilaterally. Respirations even, nonlabored. Currently on room air with oxygen saturation 95%. Strong cough. No chest wall deformities. No clubbing or cyanosis present CARDIOVASCULAR: S1, S2 present. Regular rate and rhythm, sinus rhythm on telemetry. Palpable peripheral pulses bilaterally. No edema present. No calf pain or tenderness noted. No significant lower extremity varicosities noted GASTROINTESTINAL: Abdomen soft, nontender, nondistended without masses or organomegaly noted. There is no rebound or guarding present. Active bowel s ounds present 4 quadrants. GENITOURINARY: Deferred INTEGUMENTARY: Skin is warm and dry NEUROLOGIC: Cranial nerves II through XII intact, normal coordination, no obvious motor or sensory deficits, speech is normal MUSKULOSKELETAL: Able to move all extremities, strength equal bilaterally, norm al posture PSYCHIATRIC: Alert and oriented to person place and time, appropriate affect Results - Labs 01/24/25 07:33 01/24/25 07:33 Abnormal Lab Results - Last 24 Hours (Table) 01/24/25 01/24/25 01/25/25 Range/Units 16:18 20:04 06:08 POC Glucose (mg/dL) 144 H 188 H 156 H (70-110) mg/dL - Imaging Chest x-ray: report reviewed, image reviewed CT scan - chest: report reviewed, image reviewed EKG: image reviewed Additional studies: Heart catheterization films reviewed, echocardiogram report reviewed Assessment and Plan Assessment: Triple-vessel coronary artery disease, non-STEMI this admission Bilateral pulmonary emboli History of vej-gqhbgjc-dkhrnhapj diabetes Diabetic neuropathy Lifelong non-smoker Obesity Plan: The patient was seen and examined laying in bed on the cardiac stepdown unit in no acute distress. She denies any pain or shortness of breath currently. Chart/diagnostics reviewed, case discussed with Dr Pond. The patient adamantly states she is not willing to undergo open heart surgery, and would not even let me discuss what open heart surgery entails. She states that she is willing to undergo medical management +/- stenting only. This was discussed with Dr. De Souza. In addition patient has been noncompliant with treatment, refuses to allow IV heparin despite bilateral pulmonary emboli as she does not want frequent lab draws for PTTs. So far she has allowed subcutaneous Lovenox injection. Even if patient were to consider CABG she would likely be a poor candidate due to n oncompliance, sedentary lifestyle, and current acute pulmonary emboli as well as lower extremity weakness. Thank you Dr. De Souza for this consult, please call us with any further questions. I have personally seen and examined the patient, performed the documentation and the assessment and plan as written. Number of minutes spent on the visit: 30. JOSE Ray I reviewed the cath and saw the patient. She would like to go to rehab and consider CABG at a later date. I asked her to f/u with cardiology. Thank you for the consult.
--- NOTE | 2025-01-25 10:58 | P.PN ---
Subjective Progress Note Date: 01/25/25 Principal diagnosis: Shortness of breath. Pulmonary consultation dated January 22, 2025. 74-year-old female seen today in room 368. She went to the emergency department, with complaints of generalized weakness for 5 days. She apparently had no leg strength. In addition, she mentions that she was a bit short of breath. She was evaluated in the emergency room, and found to have a pulmonary embolism on CT angiogram. She was seen there by a PA I believe, and by the ER physician. The patient does have a history of CVA, and diabetes. Currently, the patient is on IV heparin, saline at 75 cc an hour, and room air. She does state that she has been inactive at home, for a number of days, prior to coming into the emergency department. Laboratory data includes a white count 8.4, hemoglobin 13.4, hematocrit 41.4, and a platelet count of 3 31,000. PTT is 40.6. Sodium 133, potassium 3.5, chlorides 98, CO2 28, BUN 13, creatinine 0.54. Glucose is 289. Troponin was 0.325. Urine was negative. Venous Doppler studies were negative for DVT. Chest x-ray showed bibasilar patchy airspace opacities. CT angiogram showed filling defects within the pulmonary arterial vasculature, bilaterally, involving all lung lobes. Pulmonary trunk is dilated up to 43 mm. No evidence of right heart strain noted on CTA. Progress note dated January 23, 2025. 74-year-old female seen yesterday in consultation. Please see my note above. The patient is seen today in room 368. The patient is currently on room air. She is receiving IV heparin. The patient is getting saline at 75 cc an hour. Cardiology is pending the echocardiogram, to decide whether or not she would be a candidate for EKOS, or suction thrombectomy. Clinically, not so much, as she appears very stable. She denies any shortness of breath, or difficulty breathing. She denies any chest pain or chest discomfort. White count 8.5, hemoglobin 13.4, hematocrit 41.2, platelet count 171,000. PTT is 36.9. Sodium 136, potassium 3.9, chlorides 100, CO2 27, BUN 6, and creatinine 0.51. Glucose is 198. Calcium is 8.6. Progress note dated January 24, 2025. 74-year-old female seen today in room 368. The patient is doing well. She is on room air. No IV fluids. The patient is apparently refusing IV heparin. Not sure that she will take an oral anticoagulant. Clinically, she is doing well. She denies any shortness of breath, cough, wheezing, chest tightness, or phlegm production. White count 8.5, hemoglobin 13.1, hematocrit 40.6, platelet count normal. Glucose 137, potassium 4.1, chlorides 103, CO2 26, BUN 5, creatinine 0.45. Glucose is 203. Calcium is 9.3. Progress note dated January 25, 2025. 74-year-old female seen in room 368. The patient is resting comfortably in bed. She is on room air. She is getting saline at 10 cc an hour. The patient had a cardiac catheterization yesterday which revealed three-vessel disease. The patient is going to be evaluated by cardiothoracic surgery for possible bypass. Currently, she is on Lovenox, therapeutic doses, 90 mg subcutaneously every 12 hours. On admission, the patient was discovered to have bilateral pulmonary emboli. Clinically, her respiratory status is stable. No new labs today other than a glucose of 156. Objective - Vital Signs Vital signs: Vital Signs Temp 97.9 F 01/25/25 08:00 Pulse 75 01/25/25 08:00 Resp 18 01/25/25 08:00 BP 99/57 01/25/25 08:00 Pulse Ox 95 01/25/25 08:00 FiO2 Intake & Output 01/24/25 01/25/25 01/25/25 18:59 06:59 18:59 Intake Total 695.078 240 Output Total 650 1300 Balance 45.078 -1300 240 Weight 101.4 kg Intake: IV 230 Intake, IV Titration 225.078 Amount Heparin Sod,Pork in 0.45% 225.078 NaCl 25,000 unit In 0.45 % NaCl 1 250ml.bag @ 18 UNITS/KG/HR 15.105 mls/hr IV .[id number] [facility] Rx#: [id number] Oral 240 240 Output: Urine 650 1300 Other: # Voids 2 - Exam No acute distress, oriented 3. Not requiring any supplemental oxygen. No conversational dyspnea, or use of accessory muscles. HEENT examination is grossly unremarkable. Mucous membranes are moist. No oral lesions. Neck supple. Full range of motion. No adenopathy thyromegaly or neck vein distention. Cardiovascular examination reveals regular rhythm rate. S1-S2 normal. No S3 or S4. No discernible murmur noted. Lungs reveal clear breath sounds. Breath sounds are equal bilaterally. No adventitious lung sounds including wheezes rhonchi or crackles. Abdomen soft bowel sounds are heard. No masses or tenderness. Extremities are intact. No cyanosis clubbing or edema. Skin is without rash or lesion. Neurologic examination is brief but nonfocal. - Labs CBC & Chem 7: 01/24/25 07:33 01/24/25 07:33 Labs: Abnormal Lab Results - Last 24 Hours (Table) 01/24/25 01/24/25 01/25/25 Range/Units 16:18 20:04 06:08 POC Glucose (mg/dL) 144 H 188 H 156 H (70-110) mg/dL Assessment and Plan Assessment: Bilateral pulmonary embolism, without evidence of right heart strain. Severe triple-vessel coronary, currently, being evaluated by cardiothoracic surgery. No evidence of DVT on lower extremity Dopplers. History of CVA. History of diabetes mellitus, with diabetic neuropathy. Prior history of tobacco use. Sedentary lifestyle. Plan: Plan dated January 22, 2025. The patient is seen today in room 368. She is currently on IV heparin. She is getting saline at 75 cc an hour. She is on room air. The patient's CT scan is reviewed. No evidence of right heart strain, noted. Echocardiogram is pending. Troponins were elevated. Labs, x-rays, and medications are reviewed. I do not believe the patient is a candidate for suction thrombectomy or EKOS at this time. I will leave that up to cardiology, pending the echocardiogram. If no intervention is anticipated, the patient's IV heparin can be converted to a direct oral anticoagulant/factor Xa inhibitor. Dictation was produced using [employer]ation software. Please excuse any grammatical, word or spelling errors. Plan dated January 23, 2025. The patient is seen today in room 368. She continues on IV heparin. Cardiology has not transitioned her to a direct oral anticoagulant. They are waiting for the results of the echocardiogram. Clinically, she is very stable. She is not requiring any supplemental oxygen. She denies any shortness of breath, difficulty breathing, or chest pain. Labs, x-rays, medications are reviewed. I do not believe she will be a candidate for either EKOS or suction thrombectomy. We will await and see what cardiology says. Dictation was produced using [employer] software. Please excuse any grammatical, word or spelling errors. Plan dated January 24, 2025. The patient is seen today in room 368. The patient is currently on room air. She apparently is refusing IV heparin. Not sure that she will take a direct oral anticoagulant. Clinically, the patient is very stable. She is on room air. She is not receiving any IV fluids. Echocardiogram is currently pending. Labs, x-rays, and all medications are reviewed. The patient's overall prognosis remains guarded. We will continue to follow. Dictation was produced using [employer] software. Please excuse any grammatical, word or spelling errors. Plan dated January 25, 2025. The patient had a cardiac catheterization yesterday. She was discovered to have severe triple-vessel coronary disease. The patient is currently being evaluated by cardiothoracic surgery for possible bypass. The patient is on therapeutic doses of Lovenox, every 12 hours. Labs, x-rays, medications are reviewed. She is currently on room air. No IV fluids. The patient is clinically stable. We will continue to follow. Prognosis is guarded. Dictation was produced using [employer] software. Please excuse any grammatical, word or spelling errors. Time with Patient: Less than 30
[2025-01-25 11:25] LABS: Glucose,Whole Blood 171 mg/dL (70-110)
[2025-01-25 16:35] LABS: Glucose,Whole Blood 140 mg/dL (70-110)
--- NOTE | 2025-01-25 17:59 | P.PN ---
Subjective Progress Note Date: 01/25/25 74-year-old female, history of diabetes mellitus, CVA/TIA, presented to the emergency department, with complaints of generalized weakness for 5 days along with shortness of breath. She apparently had no leg strength. - She was evaluated in the emergency room, and found to have a pulmonary embolism on CT angiogram. Currently, the patient is on IV heparin, saline at 75 cc an hour, and room air. --Laboratory data includes a white count 8.4, hemoglobin 13.4, hematocrit 41.4, and a platelet count of 3 31,000. PTT is 40.6. Sodium 133, potassium 3.5, chlorides 98, CO2 28, BUN 13, creatinine 0.54. Glucose is 289. Troponin was 0.325. -Urine was negative. -- Venous Doppler studies were negative for DVT. -Chest x-ray showed bibasilar patchy airspace opacities. CT angiogram showed filling defects within the pulmonary arterial vasculature, bilaterally, involving all lung lobes. Pulmonary trunk is dilated up to 43 mm. No evidence of right heart strain noted on CTA. 24 interval change 01/24/2025 Patient is seen and evaluated with family at bedside; continues to complain of weakness in the left and inability to ambulate Vital signs are reviewed and remained stable White count 8.5, hemoglobin 13.1, hematocrit 40.6, platelet count normal. Glucose 137, potassium 4.1, chlorides 103, CO2 26, BUN 5, creatinine 0.45. Glucose is 203. Calcium is 9.3. Patient has been refusing IV heparin; echo revealed cardiomyopathy with evidence of wall motion abnormalities concerning for severe underlying coronary artery disease. Given abnormalities on the EKG and echocardiogram and the abnormal cardiac enzymes cardiology has recommended to pursue with coronary angiogram. -Patient scheduled for cardiac catheterization Objective - Vital Signs Vital signs: Vital Signs Temp 98.1 F 01/24/25 07:59 Pulse 88 01/24/25 07:59 Resp 18 01/24/25 07:59 BP 113/67 01/24/25 07:59 Pulse Ox 95 01/24/25 07:59 FiO2 Intake & Output 01/23/25 01/24/25 01/24/25 18:59 06:59 18:59 Intake Total 710.065 225.078 Output Total 1450 200 450 Balance -739.935 -200 -224.922 Intake: Intake, IV Titration 230.065 225.078 Amount Heparin Sod,Pork in 0.45% 230.065 225.078 NaCl 25,000 unit In 0.45 % NaCl 1 250ml.bag @ 18 UNITS/KG/HR 15.105 mls/hr IV [id number] Rx#: [id number] Oral 480 Output: Urine 1450 200 450 Other: Voiding Method Bedpan Bedpan # Bowel Movements 1 - Exam General appearance: alert, in no apparent distress Head exam: Present: atraumatic, normocephalic, normal inspection Eye exam: Present: normal appearance, PERRL, EOMI. Absent: scleral icterus, conjunctival injection, periorbital swelling ENT exam: Present: normal exam, mucous membranes moist Neck exam: Present: normal inspection. Absent: tenderness, meningismus, lymphadenopathy Respiratory exam: Present: normal lung sounds bilaterally. Absent: respiratory distress, wheezes, rales, rhonchi, stridor Cardiovascular Exam: Present: normal rhythm, tachycardia, normal heart sounds. Absent: systolic murmur, diastolic murmur, rubs, gallop, clicks GI/Abdominal exam: Present: soft, normal bowel sounds. Absent: distended, tenderness, guarding, rebound, rigid Extremities exam: Present: normal inspection, full ROM, normal capillary refill. Absent: tenderness, pedal edema, joint swelling, calf tenderness Neurological exam: Present: alert, oriented X3, CN II-XII intact Skin exam: Present: warm, dry, intact, normal color. Absent: rash - Labs CBC & Chem 7: 01/24/25 07:33 01/24/25 07:33 Labs: Abnormal Lab Results - Last 24 Hours (Table) 01/23/25 01/23/25 01/23/25 Range/Units 11:22 15:32 16:18 APTT 35.4 H (22.0-30.0) sec BUN (7-17) mg/dL Creatinine (0.52-1.04) mg/dL Glucose (74-99) mg/dL POC Glucose (mg/dL) 198 H 188 H (70-110) mg/dL 01/23/25 01/24/25 01/24/25 Range/Units 20:23 06:17 07:29 APTT 21.5 L (22.0-30.0) sec BUN (7-17) mg/dL Creatinine (0.52-1.04) mg/dL Glucose (74-99) mg/dL POC Glucose (mg/dL) 231 H 194 H (70-110) mg/dL 01/24/25 Range/Units 07:33 APTT (22.0-30.0) sec BUN 5 L (7-17) mg/dL Creatinine 0.45 L (0.52-1.04) mg/dL Glucose 203 H (74-99) mg/dL POC Glucose (mg/dL) (70-110) mg/dL Assessment and Plan Assessment: 1. Bilateral PE; --CT angiogram showed filling defects within the pulmonary arterial vasculature, bilaterally, involving all lung lobes. Pulmonary trunk is dilated up to 43 mm. No evidence of right heart strain noted on CTA. -Bilateral lower extremity venous Doppler is negative for DVT -Patient is placed on IV heparin; 2D echo is ordered; plan is to transition to oral anticoagulation if no right heart strain on echocardiogram -- Pulmonary and cardiology on board 2. Elevated troponin; troponin elevated to 0.325 at time of presentation to ED; has been evaluated by cardiology -- Likely myocardial injury without evidence of ischemia -Cardiology recommending to switching to oral anticoagulation -Echocardiogram is ordered for further risk stratification 4. Hyperglycemia/diabetes mellitus without long-term insulin use; patient is on metformin 500 mg twice daily 5. Diabetic neuropathy; Neurontin 300 mg p.o. nightly DVT prophylaxis; SCD/IV heparin CODE STATUS; full code
--- NOTE | 2025-01-25 18:02 | P.PN ---
Subjective Progress Note Date: 01/25/25 74-year-old female, history of diabetes mellitus, CVA/TIA, presented to the emergency department, with complaints of generalized weakness for 5 days along with shortness of breath. She apparently had no leg strength. - She was evaluated in the emergency room, and found to have a pulmonary embolism on CT angiogram. Currently, the patient is on IV heparin, saline at 75 cc an hour, and room air. --Laboratory data includes a white count 8.4, hemoglobin 13.4, hematocrit 41.4, and a platelet count of 3 31,000. PTT is 40.6. Sodium 133, potassium 3.5, chlorides 98, CO2 28, BUN 13, creatinine 0.54. Glucose is 289. Troponin was 0.325. -Urine was negative. -- Venous Doppler studies were negative for DVT. -Chest x-ray showed bibasilar patchy airspace opacities. CT angiogram showed filling defects within the pulmonary arterial vasculature, bilaterally, involving all lung lobes. Pulmonary trunk is dilated up to 43 mm. No evidence of right heart strain noted on CTA. 24 interval change 01/24/2025 Patient is seen and evaluated with family at bedside; continues to complain of weakness in the left and inability to ambulate Vital signs are reviewed and remained stable White count 8.5, hemoglobin 13.1, hematocrit 40.6, platelet count normal. Glucose 137, potassium 4.1, chlorides 103, CO2 26, BUN 5, creatinine 0.45. Glucose is 203. Calcium is 9.3. Patient has been refusing IV heparin; echo revealed cardiomyopathy with evidence of wall motion abnormalities concerning for severe underlying coronary artery disease. Given abnormalities on the EKG and echocardiogram and the abnormal cardiac enzymes cardiology has recommended to pursue with coronary angiogram. -Patient scheduled for cardiac catheterization 01/25/2025 Patient is seen and evaluated resting comfortably in bed; no complaint of chest pain; patient is status post cardiac catheterization which reveals occluded RCA by the ostia with chronic occlusion and bridging collateral; severe disease involving midshaft of left main, severe disease involving ostium of the left circumflex and occluded proximal left anterior descending artery -Cardiology has consulted cardiothoracic surgery -Patient has been refusing IV heparin; has been transitioned to subcu Lovenox -Patient is not willing to go through open heart surgery; might be willing for medical management versus stent placement -Has been evaluated by PT/OT and is recommended skilled rehab -Await final recommendations from cardiology Objective - Vital Signs Vital signs: Vital Signs Temp 97.9 F 01/25/25 08:00 Pulse 79 01/25/25 16:00 Resp 18 01/25/25 16:00 BP 131/88 01/25/25 16:00 Pulse Ox 99 01/25/25 16:00 FiO2 Intake & Output 01/24/25 01/25/25 01/25/25 18:59 06:59 18:59 Intake Total 695.078 480 Output Total 650 1300 950 Balance 45.078 -1300 -470 Weight 101.4 kg Intake: IV 230 Intake, IV Titration 225.078 Amount Heparin Sod,Pork in 0.45% 225.078 NaCl 25,000 unit In 0.45 % NaCl 1 250ml.bag @ 18 UNITS/KG/HR 15.105 mls/hr IV .[id number] [facility] Rx#: [id number] Oral 240 480 Output: Urine 650 1300 950 Other: # Voids 2 - Exam General appearance: alert, in no apparent distress Head exam: Present: atraumatic, normocephalic, normal inspection Eye exam: Present: normal appearance, PERRL, EOMI. Absent: scleral icterus, conjunctival injection, periorbital swelling ENT exam: Present: normal exam, mucous membranes moist Neck exam: Present: normal inspection. Absent: tenderness, meningismus, lymphadenopathy Respiratory exam: Present: normal lung sounds bilaterally. Absent: respiratory distress, wheezes, rales, rhonchi, stridor Cardiovascular Exam: Present: normal rhythm, tachycardia, normal heart sounds. Absent: systolic murmur, diastolic murmur, rubs, gallop, clicks GI/Abdominal exam: Present: soft, normal bowel sounds. Absent: distended, tenderness, guarding, rebound, rigid Extremities exam: Present: normal inspection, full ROM, normal capillary refill. Absent: tenderness, pedal edema, joint swelling, calf tenderness Neurological exam: Present: alert, oriented X3, CN II-XII intact Skin exam: Present: warm, dry, intact, normal color. Absent: rash - Labs CBC & Chem 7: 01/24/25 07:33 01/24/25 07:33 Labs: Abnormal Lab Results - Last 24 Hours (Table) 01/24/25 01/25/25 01/25/25 Range/Units 20:04 06:08 11:23 POC Glucose (mg/dL) 188 H 156 H 171 H (70-110) mg/dL 01/25/25 Range/Units 16:33 POC Glucose (mg/dL) 140 H (70-110) mg/dL Assessment and Plan Assessment: 1. Bilateral PE; --CT angiogram showed filling defects within the pulmonary arterial vasculature, bilaterally, involving all lung lobes. Pulmonary trunk is dilated up to 43 mm. No evidence of right heart strain noted on CTA. -Bilateral lower extremity venous Doppler is negative for DVT -Patient is placed on IV heparin; 2D echo is ordered; plan is to transition to oral anticoagulation if no right heart strain on echocardiogram -- Pulmonary and cardiology on board 2. Elevated troponin; troponin elevated to 0.325 at time of presentation to ED; has been evaluated by cardiology -- Likely myocardial injury without evidence of ischemia -Cardiology recommending to switching to oral anticoagulation -Echocardiogram is ordered for further risk stratification 4. Hyperglycemia/diabetes mellitus without long-term insulin use; patient is on metformin 500 mg twice daily 5. Diabetic neuropathy; Neurontin 300 mg p.o. nightly DVT prophylaxis; SCD/IV heparin CODE STATUS; full code
--- NOTE | 2025-01-26 08:13 | P.PN ---
Subjective Progress Note Date: 01/26/25 The patient is a 74-year-old female patient with a past medical history significant for overweight and diabetes as well as multiple comorbid conditions who was admitted to the hospital with generalized weakness and fatigue. No other cardiovascular symptoms of any pain in the chest or shortness of breath or dizziness or lightness or any feeling of heart racing or fluttering or presyncope or syncope. She underwent further evaluation including cardiac enzymes with troponin came to be abnormal and EKG showing sinus mechanism with sinus tachycardia and S1Q3T3 pattern with nonspecific changes anteriorly as well. D-dimer came to be elevated and subsequently she underwent a CT scan of the chest which showed bilateral PE with no evidence of RV strain. Troponin is mildly elevated and NT proBNP is elevated with no echo as of now. No history of PE before. No recent surgery or history of travel for long distance as well. The physical examination is remarkable for regular rhythm with a soft systolic murmur at the right upper sternal border with clear breathing sounds bilaterally and no edema was noted in the lower extremities with please note that she underwent venous duplex study came to be unremarkable for DVT. January 23, 2025 The patient was seen and evaluated this morning. She is feeling better. The generalized weakness and fatigue have improved. No symptoms of chest pain or chest discomfort or shortness of breath at this point. She is hemodynamically stable which she is on heparin IV. I would keep the heparin IV till we have the results of the echocardiogram to rule out any cardiomyopathy. Otherwise the physical examination is remarkable for regular rhythm with a clear breathing sounds bilaterally and no edema was noted in the lower extremities January 24, 2025 The patient was seen and evaluated this morning. She is asymptomatic which is hemodynamically stable with the echo still pending. She refused to take any heparin. The physical examination appears to be unchanged compared to before. January 25, 2025 The patient was seen and evaluated this morning. She is asymptomatic. She is hemodynamically stable besides mild sinus tachycardia and I am going to increase the dose of beta-yani. Otherwise she is on statin. She is on aspirin. She underwent yesterday heart catheterization which revealed severe left main coronary artery disease and occluded LAD and occluded RCA. I advised the patient to be evaluated by the surgeon to evaluate the best way of revas cularization versus medical treatment only. The physical examination is remarkable for regular rhythm with a soft systolic murmur and clear breathing sounds bilaterally and no edema was noted January 26, 2025 The patient was seen and evaluated this morning. She is asymptomatic and she is hemodynamically stable which she was seen by the cardiothoracic surgical team yesterday and she is somewhat hesitant to undergo CABG at this point. Meanwhile she is on high intensity statin and she is on beta-yani and she is on DIMA inhibitor and also she is on Lovenox. Physical therapy is on the case. The physical examination is remarkable for regular rhythm with a soft systolic murmur and clear breathing sounds bilaterally and no edema was noted Assessment Severe coronary artery disease as described above Bilateral PE appears to be unprovoked Evidence of myocardial injury Abnormal EKG as described above Generalized weakness and fatigue Multiple comorbid conditions including diabetes and hypertension and dyslipidemia Plan Continue the current medical regimen Currently she is on Lovenox Follow-up with the patient Objective - Vital Signs Vital signs: Vital Signs Temp 98.4 F 01/25/25 19:45 Pulse 80 01/26/25 04:35 Resp 18 01/26/25 04:35 BP 145/66 01/26/25 04:35 Pulse Ox 97 01/26/25 04:35 FiO2 Intake & Output 01/25/25 01/26/25 01/26/25 18:59 06:59 18:59 Intake Total 720 Output Total 1350 400 Balance -630 -400 Intake: Oral 720 Output: Urine 1350 400 - Labs CBC & Chem 7: 01/24/25 07:33 01/24/25 07:33 Labs: Abnormal Lab Results - Last 24 Hours (Table) 01/25/25 01/25/25 Range/Units 11:23 16:33 POC Glucose (mg/dL) 171 H 140 H (70-110) mg/dL
--- NOTE | 2025-01-26 11:55 | P.PN ---
Subjective Progress Note Date: 01/26/25 74-year-old female, history of diabetes mellitus, CVA/TIA, presented to the emergency department, with complaints of generalized weakness for 5 days along with shortness of breath. She apparently had no leg strength. - She was evaluated in the emergency room, and found to have a pulmonary embolism on CT angiogram. Currently, the patient is on IV heparin, saline at 75 cc an hour, and room air. --Laboratory data includes a white count 8.4, hemoglobin 13.4, hematocrit 41.4, and a platelet count of 3 31,000. PTT is 40.6. Sodium 133, potassium 3.5, chlorides 98, CO2 28, BUN 13, creatinine 0.54. Glucose is 289. Troponin was 0.325. -Urine was negative. -- Venous Doppler studies were negative for DVT. -Chest x-ray showed bibasilar patchy airspace opacities. CT angiogram showed filling defects within the pulmonary arterial vasculature, bilaterally, involving all lung lobes. Pulmonary trunk is dilated up to 43 mm. No evidence of right heart strain noted on CTA. 24 interval change 01/24/2025 Patient is seen and evaluated with family at bedside; continues to complain of weakness in the left and inability to ambulate Vital signs are reviewed and remained stable White count 8.5, hemoglobin 13.1, hematocrit 40.6, platelet count normal. Glucose 137, potassium 4.1, chlorides 103, CO2 26, BUN 5, creatinine 0.45. Glucose is 203. Calcium is 9.3. Patient has been refusing IV heparin; echo revealed cardiomyopathy with evidence of wall motion abnormalities concerning for severe underlying coronary artery disease. Given abnormalities on the EKG and echocardiogram and the abnormal cardiac enzymes cardiology has recommended to pursue with coronary angiogram. -Patient scheduled for cardiac catheterization 01/25/2025 Patient is seen and evaluated resting comfortably in bed; no complaint of chest pain; patient is status post cardiac catheterization which reveals occluded RCA by the ostia with chronic occlusion and bridging collateral; severe disease involving midshaft of left main, severe disease involving ostium of the left circumflex and occluded proximal left anterior descending artery -Cardiology has consulted cardiothoracic surgery -Patient has been refusing IV heparin; has been transitioned to subcu Lovenox -Patient is not willing to go through open heart surgery; might be willing for medical management versus stent placement -Has been evaluated by PT/OT and is recommended skilled rehab -Await final recommendations from cardiology 01/26/2025 Patient seen and evaluated in room at bedside; discussed results of cardiac catheterization and cardiology recommendations for surgical intervention; patient continues to decline surgery, "I am leaving in hands of the good Lord to heal my heart"; still agreeable to skilled rehab Vital signs are reviewed and stable with temperature of 98.4, pulse 80, respiration 18 and blood pressure 145/66 -- Patient has been refusing IV heparin; has been placed on subcu Lovenox per cardiology recommendations -- Plan is to continue with current medical regimen at this time -Patient has been evaluated by PT/OT and is recommended skilled rehab; case management on board to make arrangements for discharge Objective - Vital Signs Vital signs: Vital Signs Temp 97.6 F 01/26/25 08:00 Pulse 85 01/26/25 08:00 Resp 18 01/26/25 08:00 BP 110/66 01/26/25 08:00 Pulse Ox 95 01/26/25 08:00 FiO2 Intake & Output 01/25/25 01/26/25 01/26/25 18:59 06:59 18:59 Intake Total 720 200 Output Total 1350 400 Balance -630 -400 200 Intake: Oral 720 200 Output: Urine 1350 400 - Exam General appearance: alert, in no apparent distress Head exam: Present: atraumatic, normocephalic, normal inspection Eye exam: Present: normal appearance, PERRL, EOMI. Absent: scleral icterus, conjunctival injection, periorbital swelling ENT exam: Present: normal exam, mucous membranes moist Neck exam: Present: normal inspection. Absent: tenderness, meningismus, lymphadenopathy Respiratory exam: Present: normal lung sounds bilaterally. Absent: respiratory distress, wheezes, rales, rhonchi, stridor Cardiovascular Exam: Present: normal rhythm, tachycardia, normal heart sounds. Absent: systolic murmur, diastolic murmur, rubs, gallop, clicks GI/Abdominal exam: Present: soft, normal bowel sounds. Absent: distended, tend erness, guarding, rebound, rigid Extremities exam: Present: normal inspection, full ROM, normal capillary refill. Absent: tenderness, pedal edema, joint swelling, calf tenderness Neurological exam: Present: alert, oriented X3, CN II-XII intact Skin exam: Present: warm, dry, intact, normal color. Absent: rash - Labs CBC & Chem 7: 01/24/25 07:33 01/24/25 07:33 Labs: Abnormal Lab Results - Last 24 Hours (Table) 01/25/25 01/25/25 Range/Units 11:23 16:33 POC Glucose (mg/dL) 171 H 140 H (70-110) mg/dL Assessment and Plan Assessment: 1. Bilateral PE; --CT angiogram showed filling defects within the pulmonary arterial vasculature, bilaterally, involving all lung lobes. Pulmonary trunk is dilated up to 43 mm. No evidence of right heart strain noted on CTA. -Bilateral lower extremity venous Doppler is negative for DVT -Patient is placed on IV heparin; 2D echo is ordered; plan is to transition to oral anticoagulation if no right heart strain on echocardiogram -- Pulmonary and cardiology on board 2. Elevated troponin; troponin elevated to 0.325 at time of presentation to ED; has been evaluated by cardiology -- Likely myocardial injury without evidence of ischemia -Cardiology recommending to switching to oral anticoagulation -Echocardiogram is ordered for further risk stratification 4. Hyperglycemia/diabetes mellitus without long-term insulin use; patient is on metformin 500 mg twice daily 5. Diabetic neuropathy; Neurontin 300 mg p.o. nightly DVT prophylaxis; SCD/IV heparin CODE STATUS; full code
--- NOTE | 2025-01-26 12:25 | P.PN ---
Subjective Progress Note Date: 01/26/25 Principal diagnosis: Shortness of breath. Pulmonary consultation dated January 22, 2025. 74-year-old female seen today in room 368. She went to the emergency department, with complaints of generalized weakness for 5 days. She apparently had no leg strength. In addition, she mentions that she was a bit short of breath. She was evaluated in the emergency room, and found to have a pulmonary embolism on CT angiogram. She was seen there by a PA I believe, and by the ER physician. The patient does have a history of CVA, and diabetes. Currently, the patient is on IV heparin, saline at 75 cc an hour, and room air. She does state that she has been inactive at home, for a number of days, prior to coming into the emergency department. Laboratory data includes a white count 8.4, hemoglobin 13.4, hematocrit 41.4, and a platelet count of 3 31,000. PTT is 40.6. Sodium 133, potassium 3.5, chlorides 98, CO2 28, BUN 13, creatinine 0.54. Glucose is 289. Troponin was 0.325. Urine was negative. Venous Doppler studies were negative for DVT. Chest x-ray showed bibasilar patchy airspace opacities. CT angiogram showed filling defects within the pulmonary arterial vasculature, bilaterally, involving all lung lobes. Pulmonary trunk is dilated up to 43 mm. No evidence of right heart strain noted on CTA. Progress note dated January 23, 2025. 74-year-old female seen yesterday in consultation. Please see my note above. The patient is seen today in room 368. The patient is currently on room air. She is receiving IV heparin. The patient is getting saline at 75 cc an hour. Cardiology is pending the echocardiogram, to decide whether or not she would be a candidate for EKOS, or suction thrombectomy. Clinically, not so much, as she appears very stable. She denies any shortness of breath, or difficulty breathing. She denies any chest pain or chest discomfort. White count 8.5, hemoglobin 13.4, hematocrit 41.2, platelet count 171,000. PTT is 36.9. Sodium 136, potassium 3.9, chlorides 100, CO2 27, BUN 6, and creatinine 0.51. Glucose is 198. Calcium is 8.6. Progress note dated January 24, 2025. 74-year-old female seen today in room 368. The patient is doing well. She is on room air. No IV fluids. The patient is apparently refusing IV heparin. Not sure that she will take an oral anticoagulant. Clinically, she is doing well. She denies any shortness of breath, cough, wheezing, chest tightness, or phlegm production. White count 8.5, hemoglobin 13.1, hematocrit 40.6, platelet count normal. Glucose 137, potassium 4.1, chlorides 103, CO2 26, BUN 5, creatinine 0.45. Glucose is 203. Calcium is 9.3. Progress note dated January 25, 2025. 74-year-old female seen in room 368. The patient is resting comfortably in bed. She is on room air. She is getting saline at 10 cc an hour. The patient had a cardiac catheterization yesterday which revealed three-vessel disease. The patient is going to be evaluated by cardiothoracic surgery for possible bypass. Currently, she is on Lovenox, therapeutic doses, 90 mg subcutaneously every 12 hours. On admission, the patient was discovered to have bilateral pulmonary emboli. Clinically, her respiratory status is stable. No new labs today other than a glucose of 156. Progress note dated January 26, 2025. 74-year-old female seen in room 368. The patient was admitted with a diagnosis of pulmonary embolism. She had a cardiac catheterization which showed severe triple-vessel disease. The patient has been refusing various treatments, and apparently was not interested in coronary artery bypass grafting. Please see the note in the chart from the cardiothoracic surgeon. In addition, the patient was refusing a direct oral anticoagulant, and is currently on Lovenox subcu, twice a day. She is not receiving any oxygen therapy. The patient is getting saline at 10 cc an hour. No new labs today other than a glucose of 140. Objective - Vital Signs Vital signs: Vital Signs Temp 97.6 F 01/26/25 08:00 Pulse 85 01/26/25 08:00 Resp 18 01/26/25 08:00 BP 110/66 01/26/25 08:00 Pulse Ox 95 01/26/25 08:00 FiO2 Intake & Output 01/25/25 01/26/25 01/26/25 18:59 06:59 18:59 Intake Total 720 200 Output Total 1350 400 Balance -630 -400 200 Intake: Oral 720 200 Output: Urine 1350 400 - Exam No acute distress, oriented 3. Not requiring any supplemental oxygen. No conversational dyspnea, or use of accessory muscles. HEENT examination is grossly unremarkable. Mucous membranes are moist. No oral lesions. Neck supple. Full range of motion. No adenopathy thyromegaly or neck vein distention. Cardiovascular examination reveals regular rhythm rate. S1-S2 normal. No S3 or S4. No discernible murmur noted. Lungs reveal clear breath sounds. Breath sounds are equal bilaterally. No adventitious lung sounds including wheezes rhonchi or crackles. Abdomen soft bowel sounds are heard. No masses or tenderness. Extremities are intact. No cyanosis clubbing or edema. Skin is without rash or lesion. Neurologic examination is brief but nonfocal. - Labs CBC & Chem 7: 01/24/25 07:33 01/24/25 07:33 Labs: Abnormal Lab Results - Last 24 Hours (Table) 01/25/25 Range/Units 16:33 POC Glucose (mg/dL) 140 H (70-110) mg/dL Assessment and Plan Assessment: Bilateral pulmonary embolism, without evidence of right heart strain. Severe triple-vessel coronary, currently, being evaluated by cardiothoracic surgery. No evidence of DVT on lower extremity Dopplers. History of CVA. History of diabetes mellitus, with diabetic neuropathy. Prior history of tobacco use. Sedentary lifestyle. Plan: Plan dated January 22, 2025. The patient is seen today in room 368. She is currently on IV heparin. She is getting saline at 75 cc an hour. She is on room air. The patient's CT scan is reviewed. No evidence of right heart strain, noted. Echocardiogram is pending. Troponins were elevated. Labs, x-rays, and medications are reviewed. I do not believe the patient is a candidate for suction thrombectomy or EKOS at this time. I will leave that up to cardiology, pending the echocardiogram. If no intervention is anticipated, the patient's IV heparin can be converted to a direct oral anticoagulant/factor Xa inhibitor. Dictation was produced using [employer] dictation software. Please excuse any grammatical, word or spelling errors. Plan dated January 23, 2025. The patient is seen today in room 368. She continues on IV heparin. Cardiology has not transitioned her to a direct oral anticoagulant. They are waiting for the results of the echocardiogram. Clinically, she is very stable. She is not requiring any supplemental oxygen. She denies any shortness of breath, difficulty breathing, or chest pain. Labs, x-rays, medications are reviewed. I do not believe she will be a candidate for either EKOS or suction thrombectomy. We will await and see what cardiology says. Dictation was produced using [employer] software. Please excuse any grammatical, word or spelling errors. Plan dated January 24, 2025. The patient is seen today in room 368. The patient is currently on room air. She apparently is refusing IV heparin. Not sure that she will take a direct oral anticoagulant. Clinically, the patient is very stable. She is on room air. She is not receiving any IV fluids. Echocardiogram is currently pending. Labs, x-rays, and all medications are reviewed. The patient's overall prognosis remains guarded. We will continue to follow. Dictation was produced using [employer] software. Please excuse any grammatical, word or spelling errors. Plan dated January 25, 2025. The patient had a cardiac catheterization yesterday. She was discovered to have severe triple-vessel coronary disease. The patient is currently being evaluated by cardiothoracic surgery for possible bypass. The patient is on therapeutic doses of Lovenox, every 12 hours. Labs, x-rays, medications are reviewed. She is currently on room air. No IV fluids. The patient is clinically stable. We will continue to follow. Prognosis is guarded. Dictation was produced using [employer] software. Please excuse any grammatical, word or spelling errors. Plan dated January 26, 2025. The patient was found to have severe triple-vessel coronary disease, and cardiothoracic saw the patient yesterday, but the patient was not interested in bypass surgery. In addition, the patient came in with shortness of breath, and was found to have bilateral pulmonary embolism, and is a refusing a direct oral anticoagulant, such as Eliquis, or Xarelto. Currently she is on Lovenox subcu, twice a day. Labs, x-rays, and medications are reviewed. We will continue to follow. She is currently on room air. She is not having any respiratory issues at this time. Prognosis is guarded. Dictation was produced using [employer] software. Please excuse any grammatical, word or spelling errors. Time with Patient: Less than 30
[2025-01-26] MEDS: APIXABAN 5 MG TAB PO SCH (21:15)
[2025-01-27 07:20] LABS: Basophils # (A) 0.1 k/uL (0-0.2); Basophils % (A) 1 %; Eosinophils # (A) 0.4 k/uL (0-0.7); Eosinophils % (A) 5 %; HCT 42.8 % (34.0-46.0); HGB 13.7 gm/dL (11.4-16.0); Lymphocytes # (A) 1.7 k/uL (1.0-4.8); Lymphocytes % (A) 21 %; MCH 29.8 pg (25.0-35.0); MCV 93.2 fL (80.0-100.0); Mean Platelet Volume 8.3; Monocytes # (A) 0.4 k/uL (0-1.0); Monocytes % (A) 5 %; Neutrophils # (A) 5.3 k/uL (1.3-7.7); Neutrophils % (A) 67 %; Platelet Count 328 k/uL (150-450); RBC 4.59 m/uL (3.80-5.40); RDW 12.5 % (11.5-15.5)
[2025-01-27 07:28] LABS: African American GFR (CKD) >90 (>60 ml/min/1.73 sqM); Anion Gap 9 mmol/L; Blood Urea Nitrogen 11 mg/dL (7-17); Calcium 9.5 mg/dL (8.4-10.2); Carbon Dioxide 28 mmol/L (22-30); Chloride 99 mmol/L (98-107); Glucose 170 mg/dL (74-99); Non-African American GFR(CKD) >90 (>60 ml/min/1.73 sqM); Potassium 4.3 mmol/L (3.5-5.1); Sodium 136 mmol/L (137-145)
[2025-01-27] MEDS: APIXABAN 5 MG TAB PO ONE (12:43)
--- NOTE | 2025-01-27 15:24 | P.PN ---
Subjective Progress Note Date: 01/27/25 Interval History: 74-year-old female, history of diabetes mellitus, CVA/TIA, presented to the emergency department, with complaints of generalized weakness for 5 days along with shortness of breath. She apparently had no leg strength. - She was evaluated in the emergency room, and found to have a pulmonary embolism on CT angiogram. Currently, the patient is on IV heparin, saline at 75 cc an hour, and room air. --Laboratory data includes a white count 8.4, hemoglobin 13.4, hematocrit 41.4, and a platelet count of 3 31,000. PTT is 40.6. Sodium 133, potassium 3.5, chlorides 98, CO2 28, BUN 13, creatinine 0.54. Glucose is 289. Troponin was 0.325. -Urine was negative. -- Venous Doppler studies were negative for DVT. -Chest x-ray showed bibasilar patchy airspace opacities. CT angiogram showed filling defects within the pulmonary arterial vasculature, bilaterally, involving all lung lobes. Pulmonary trunk is dilated up to 43 mm. No evidence of right heart strain noted on CTA. 24 interval change 01/24/2025 Patient is seen and evaluated with family at bedside; continues to complain of weakness in the left and inability to ambulate Vital signs are reviewed and remained stable White count 8.5, hemoglobin 13.1, hematocrit 40.6, platelet count normal. Gluco se 137, potassium 4.1, chlorides 103, CO2 26, BUN 5, creatinine 0.45. Glucose is 203. Calcium is 9.3. Patient has been refusing IV heparin; echo revealed cardiomyopathy with evidence of wall motion abnormalities concerning for severe underlying coronary artery disease. Given abnormalities on the EKG and echocardiogram and the abnormal cardiac enzymes cardiology has recommended to pursue with coronary angiogram. -Patient scheduled for cardiac catheterization 01/25/2025 Patient is seen and evaluated resting comfortably in bed; no complaint of chest pain; patient is status post cardiac catheterization which reveals occluded RCA by the ostia with chronic occlusion and bridging collateral; severe disease involving midshaft of left main, severe disease involving ostium of the left circumflex and occluded proximal left anterior descending artery -Cardiology has consulted cardiothoracic surgery -Patient has been refusing IV heparin; has been transitioned to subcu Lovenox -Patient is not willing to go through open heart surgery; might be willing for medical management versus stent placement -Has been evaluated by PT/OT and is recommended skilled rehab -Await final recommendations from cardiology 01/26/2025 Patient seen and evaluated in room at bedside; discussed results of cardiac catheterization and cardiology recommendations for surgical intervention; patient continues to decline surgery, "I am leaving in hands of the good Lord to heal my heart"; still agreeable to skilled rehab Vital signs are reviewed and stable with temperature of 98.4, pulse 80, respiration 18 and blood pressure 145/66 -- Patient has been refusing IV heparin; has been placed on subcu Lovenox per cardiology recommendations -- Plan is to continue with current medical regimen at this time -Patient has been evaluated by PT/OT and is recommended skilled rehab; case management on board to make arrangements for discharge 01/27--patient was seen and examined today. No issues overnight. Denied any chest pain, shortness of breath, palpitations. Vital stable. CBC unremarkable. BMP unremarkable. Patient continues to refuse for CABG, currently on Eliquis, started on 10 mg twice daily for 7 days followed by 5 mg twice daily. Awaiting further cardiology recommendations regarding medical management versus PCI. Anticipate discharge to subacute rehab. Assessment and plan: Acute bilateral PE: Without right heart strain Elevated D-dimer on presentation. CT chest showed bilateral PEs, no right heart strain Pulmonary consulted--appreciate recs. Ultrasound venous negative for DVT. Was initially on heparin drip, later on subcutaneous Lovenox therapeutic dose, now switched to Eliquis Continue Eliquis 10 mg twice daily for 7 days followed by 5 mg twice daily afterwards. Severe three-vessel CAD: Echocardiogram showed mild LV systolic dysfunction, apical hypokinesis. Underwent cardiac catheterization which showed three-vessel coronary artery disease Cardiology and cardiothoracic surgery consulted. Patient refused CABG Awaiting cardiology PCI PCI Aspirin, statin, lisinopril, metoprolol. Diabetes mellitus: Diabetic neuropathy History of CVA History of tobacco use Sedentary lifestyle Debility Continue home meds DVT prophylaxis: Anticoagulated with Eliquis Disposition: PT/OT consulted, anticipate subacute rehab Monitor vital signs and labs Labs and medication were reviewed. Continue same treatment. Further recommendations as per clinical course of the patient PHYSICAL EXAMINATION: GENERAL: The patient is A&O x3, NAD HEENT: EOMI, Sclerae anicteric, Moist Mucous membranes Neck: Supple, Non tender, No JVD PULMONARY: Equal breath souds B/L, No wheezing, No crackles. CARDIOVASCULAR: S1, S2 present. No murmurs, rubs, or gallops. ABDOMEN: Soft, nontender, nondistended, normoactive bowel sounds. No guarding or rebound tenderness. MUSCULOSKELETAL: No edema, No cyanosis. No clubbing. Normal ROM. Intact peripheral pulses. NEUROLOGICAL: CN 2-12 grossly intact. No FND Skin: No Rash REVIEW OF SYSTEMS: CONSTITUTIONAL: No fever or chills. CARDIOVASCULAR: No chest pain, palpitations or syncope. PULMONARY: No shortness of breath, no cough, sore throat. GASTROINTESTINAL: No nausea, vomiting, diarrhea, abdominal pain. : No Dysuria, urgency, frequency. Extremities: No edema. NEUROLOGICAL: No headaches, no weakness, or numbness Dictation was produced using [employer] dictation software. please excuse any grammatical, word or spelling errors. Objective - Vital Signs Vital signs: Vital Signs Temp 98.2 F 01/27/25 12:00 Pulse 81 01/27/25 12:00 Resp 18 01/27/25 12:00 BP 109/68 01/27/25 12:00 Pulse Ox 96 01/27/25 12:00 FiO2 Intake & Output 01/26/25 01/27/25 01/27/25 18:59 06:59 18:59 Intake Total 590 240 Output Total 400 Balance 590 -400 240 Intake: Oral 590 240 Output: Urine 400 Other: Voiding Method Bedside Commode Bedpan # Voids 3 2 # Bowel Movements 0 - Labs CBC & Chem 7: 01/27/25 06:11 01/27/25 06:11 Labs: Abnormal Lab Results - Last 24 Hours (Table) 01/27/25 Range/Units 06:11 Sodium 136 L (137-145) mmol/L Creatinine 0.49 L (0.52-1.04) mg/dL Glucose 170 H (74-99) mg/dL
[2025-01-27] MEDS: ASPIRIN 81 MG PO SCH (15:54)
--- NOTE | 2025-01-27 16:11 | P.PN ---
Subjective Progress Note Date: 01/27/25 74-year-old female seen today in room 368. She went to the emergency department, with complaints of generalized weakness for 5 days. She apparently had no leg strength. In addition, she mentions that she was a bit short of breath. She was evaluated in the emergency room, and found to have a pulmonary embolism on CT angiogram. She was seen there by a PA I believe, and by the ER physician. The patient does have a history of CVA, and diabetes. Currently, the patient is on IV heparin, saline at 75 cc an hour, and room air. She does state that she has been inactive at home, for a number of days, prior to coming into the emergency department. Laboratory data includes a white count 8.4, hemoglobin 13.4, hematocrit 41.4, and a platelet count of 3 31,000. PTT is 40.6. Sodium 133, potassium 3.5, chlorides 98, CO2 28, BUN 13, creatinine 0.54. Glucose is 289. Troponin was 0.325. Urine was negative. Venous Doppler studies were negative for DVT. Chest x-ray showed bibasilar patchy airspace opacities. CT angiogram showed filling defects within the pulmonary arterial vasculature, bilaterally, involving all lung lobes. Pulmonary trunk is dilated up to 43 mm. No evidence of right heart strain noted on CTA. Progress note dated January 23, 2025. 74-year-old female seen yesterday in consultation. Please see my note above. The patient is seen today in room 368. The patient is currently on room air. She is receiving IV heparin. The patient is getting saline at 75 cc an hour. Cardiology is pending the echocardiogram, to decide whether or not she would be a candidate for EKOS, or suction thrombectomy. Clinically, not so much, as she appears very stable. She denies any shortness of breath, or difficulty breathing. She denies any chest pain or chest discomfort. White count 8.5, hemoglobin 13.4, hematocrit 41.2, platelet count 171,000. PTT is 36.9. Sodium 136, potassium 3.9, chlorides 100, CO2 27, BUN 6, and creatinine 0.51. Glucose is 198. Calcium is 8.6. Progress note dated January 24, 2025. 74-year-old female seen today in room 368. The patient is doing well. She is on room air. No IV fluids. The patient is apparently refusing IV heparin. Not sure that she will take an oral anticoagulant. Clinically, she is doing well. She denies any shortness of breath, cough, wheezing, chest tightness, or phlegm production. White count 8.5, hemoglobin 13.1, hematocrit 40.6, platelet count normal. Glucose 137, potassium 4.1, chlorides 103, CO2 26, BUN 5, creatinine 0.45. Glucose is 203. Calcium is 9.3. Progress note dated January 25, 2025. 74-year-old female seen in room 368. The patient is resting comfortably in bed. She is on room air. She is getting saline at 10 cc an hour. The patient had a cardiac catheterization yesterday which revealed three-vessel disease. The patient is going to be evaluated by cardiothoracic surgery for possible bypass. Currently, she is on Lovenox, therapeutic doses, 90 mg subcutaneously every 12 hours. On admission, the patient was discovered to have bilateral pulmonary emboli. Clinically, her respiratory status is stable. No new labs today other than a glucose of 156. Progress note dated January 26, 2025. 74-year-old female seen in room 368. The patient was admitted with a diagnosis of pulmonary embolism. She had a cardiac catheterization which showed severe triple-vessel disease. The patient has been refusing various treatments, and apparently was not interested in coronary artery bypass grafting. Please see the note in the chart from the cardiothoracic surgeon. In addition, the patient was refusing a direct oral anticoagulant, and is currently on Lovenox subcu, twice a day. She is not receiving any oxygen therapy. The patient is getting saline at 10 cc an hour. No new labs today other than a glucose of 140. On today's evaluation of 01/27/2025, the patient s has no specific complaints. The patient is being treated for bilateral pulmonary embolism as the patient CT of the chest was consistent with bilateral PE and the patient is currently on anticoagulation with Eliquis 10 mg p.o. twice a day. She has not had coronary artery disease and she was evaluated by cardiology and cardiothoracic surgery. Based on a recent pulmonary embolism, the patient is not a candidate for any ca rdiothoracic intervention. Cardiology is to follow-up on the case. Her Doppler of the lower extremities were essentially negative. She is essentially sedentary. Her white cell count is at 8 with a heme of 13.7 and a platelet count of 328. BUN is 11 with a creatinine of 0.49 and sodium levels at 136. The patient is currently on room air oxygen with a pulse ox 93%. No other significant events overnight. She is resting comfortably in bed. No reported bleeding complications related to anticoagulation. No hemoptysis. No pleurisy. Objective - Vital Signs Vital signs: Vital Signs Temp 98 F 01/26/25 19:40 Pulse 79 01/27/25 05:05 Resp 18 01/27/25 05:05 BP 137/74 01/27/25 05:05 Pulse Ox 94 L 01/27/25 05:05 FiO2 Intake & Output 01/26/25 01/27/25 01/27/25 18:59 06:59 18:59 Intake Total 590 120 Output Total 400 Balance 590 -400 120 Intake: Oral 590 120 Output: Urine 400 Other: Voiding Method Bedside Commode Bedpan # Voids 3 2 - Exam No acute distress, oriented 3. No conversational dyspnea, or use of accessory muscles. The patient is currently on room air oxygen. HEENT examination is grossly unremarkable. Mucous membranes are moist. No oral lesions. Neck supple. Full range of motion. No adenopathy thyromegaly or neck vein distention. Cardiovascular examination reveals regular rhythm rate. S1-S2 normal. No S3 or S4. No discernible murmur noted. Lungs reveal clear breath sounds. Breath sounds are equal bilaterally. No adventitious lung sounds including wheezes rhonchi or crackles. Abdomen soft bowel sounds are heard. No masses or tenderness. Extremities are intact. No cyanosis clubbing or edema. Skin is without rash or lesion. Neurologic examination is brief but nonfocal. - Labs CBC & Chem 7: 01/27/25 06:11 01/27/25 06:11 Labs: Abnormal Lab Results - Last 24 Hours (Table) 01/27/25 Range/Units 06:11 Sodium 136 L (137-145) mmol/L Creatinine 0.49 L (0.52-1.04) mg/dL Glucose 170 H (74-99) mg/dL Assessment and Plan Plan: Acute unprovoked bilateral pulmonary embolism, without evidence of right heart strain. Patient is currently on room air oxygen. Echocardiogram showed mild LV systolic dysfunction with apical hypokinesis, normal RV function, normal RV size. The patient is currently on anticoagulation and the patient is on Eliquis per protocol 10 mg p.o. twice a day. Severe triple-vessel coronary, currently, being evaluated by cardiothoracic surgery. She underwent yesterday heart catheterization which revealed severe left main coronary artery disease and occluded LAD and occluded RCA. Echocardiogram revealed ejection fraction of 45 to 50%. RV size and function was essentially within normal limits. No significant pulm hypertension. No evidence of DVT on lower extremity Dopplers. History of CVA. History of diabetes mellitus, with diabetic neuropathy. Prior history of tobacco use. Sedentary lifestyle. Plan Increase mobility as tolerated Continue anticoagulation with Eliquis Monitor oxygenation Cardiology regarding the triple-vessel coronary artery disease No plans for any coronary intervention at this point in time Will continue to follow
[2025-01-27] MEDS: Apixaban Initiation Dose--VTE 5 MG TAB PO SCH (19:59)
[2025-01-27] MEDS: ATORVASTATIN 40 MG TAB PO SCH (19:59)
--- NOTE | 2025-01-27 22:43 | P.PN ---
Subjective Progress Note Date: 01/27/25 The patient is a 74-year-old female patient with a past medical history significant for overweight and diabetes as well as multiple comorbid conditions who was admitted to the hospital with generalized weakness and fatigue. No other cardiovascular symptoms of any pain in the chest or shortness of breath or dizziness or lightness or any feeling of heart racing or fluttering or presyncope or syncope. She underwent further evaluation including cardiac enzymes with troponin came to be abnormal and EKG showing sinus mechanism with sinus tachycardia and S1Q3T3 pattern with nonspecific changes anteriorly as well. D-dimer came to be elevated and subsequently she underwent a CT scan of the chest which showed bilateral PE with no evidence of RV strain. Troponin is mildly elevated and NT proBNP is elevated with no echo as of now. No history of PE before. No recent surgery or history of travel for long distance as well. The physical examination is remarkable for regular rhythm with a soft systolic murmur at the right upper sternal border with clear breathing sounds bilaterally and no edema was noted in the lower extremities with please note that she underwent venous duplex study came to be unremarkable for DVT. January 23, 2025 The patient was seen and evaluated this morning. She is feeling better. The generalized weakness and fatigue have improved. No symptoms of chest pain or chest discomfort or shortness of breath at this point. She is hemodynamically stable which she is on heparin IV. I would keep the heparin IV till we have the results of the echocardiogram to rule out any cardiomyopathy. Otherwise the physical examination is remarkable for regular rhythm with a clear breathing sounds bilaterally and no edema was noted in the lower extremities January 24, 2025 The patient was seen and evaluated this morning. She is asymptomatic which is hemodynamically stable with the echo still pending. She refused to take any heparin. The physical examination appears to be unchanged compared to before. January 25, 2025 The patient was seen and evaluated this morning. She is asymptomatic. She is hemodynamically stable besides mild sinus tachycardia and I am going to increase the dose of beta-yani. Otherwise she is on statin. She is on aspirin. She underwent yesterday heart catheterization which revealed severe left main coronary artery disease and occluded LAD and occluded RCA. I advised the patient to be evaluated by the surgeon to evaluate the best way of revas cularization versus medical treatment only. The physical examination is remarkable for regular rhythm with a soft systolic murmur and clear breathing sounds bilaterally and no edema was noted January 26, 2025 The patient was seen and evaluated this morning. She is asymptomatic and she is hemodynamically stable which she was seen by the cardiothoracic surgical team yesterday and she is somewhat hesitant to undergo CABG at this point. Meanwhile she is on high intensity statin and she is on beta-yani and she is on DIMA inhibitor and also she is on Lovenox. Physical therapy is on the case. The physical examination is remarkable for regular rhythm with a soft systolic murmur and clear breathing sounds bilaterally and no edema was noted 01/27/2025 Patient is denying getting evaluated for CABG. I have educated her that the nature of her disease will be best treated by CABG evaluation however patient reports that she would rather let nature takes its course then have a open heart surgery. She understands the risk factors of not undergoing open heart surgery. I gave her an option of performing PCI which could be inferior to CABG in terms of outcome and long-term prognosis as per the guidelines. For this I have educated her that she has to be compliant with medication and cannot stop her dual antiplatelet therapy and statin. At this time patient is very reluctant to take her aspirin and statins. Assessment Severe coronary artery disease as described above Bilateral PE appears to be unprovoked NSTEMI Generalized weakness and fatigue Multiple comorbid conditions including diabetes and hypertension and dyslipidemia Plan Aspirin, Lipitor, Eliquis DVT dosing Metoprolol 25 mg twice daily, lisinopril 2.5 mg daily Obtain lipid HbA1c and NT-proBNP level I have educated her the patient that she has to be on dual antiplatelet therapy and statins only and then she should be considered for PCI. Without PCI and CABG she is at very high risk of dying. Patient understands these risk factors and is more inclined "for nature to take set goals" Objective - Vital Signs Vital signs: Vital Signs Temp 98.3 F 01/27/25 19:55 Pulse 82 01/27/25 19:55 Resp 17 01/27/25 19:55 BP 113/68 01/27/25 19:55 Pulse Ox 93 L 01/27/25 19:55 FiO2 Intake & Output 01/27/25 01/27/25 01/28/25 06:59 18:59 06:59 Intake Total 360 540 Output Total 400 Balance -400 360 540 Intake: Oral 360 540 Output: Urine 400 Other: Voiding Method Bedside Commode Bedside Commode Bedpan Bedpan # Voids 2 # Bowel Movements 0 - Labs CBC & Chem 7: 01/27/25 06:11 01/27/25 06:11 Labs: Abnormal Lab Results - Last 24 Hours (Table) 01/27/25 Range/Units 06:11 Sodium 136 L (137-145) mmol/L Creatinine 0.49 L (0.52-1.04) mg/dL Glucose 170 H (74-99) mg/dL
[2025-01-28 08:37] LABS: Basophils # (A) 0.1 k/uL (0-0.2); Basophils % (A) 1 %; Eosinophils # (A) 0.4 k/uL (0-0.7); Eosinophils % (A) 5 %; HGB 13.8 gm/dL (11.4-16.0); Lymphocytes # (A) 1.7 k/uL (1.0-4.8); Lymphocytes % (A) 23 %; MCH 30.1 pg (25.0-35.0); MCHC 32.2 g/dL (31.0-37.0); MCV 93.6 fL (80.0-100.0); Mean Platelet Volume 8.2; Monocytes # (A) 0.4 k/uL (0-1.0); Monocytes % (A) 5 %; Neutrophils # (A) 4.9 k/uL (1.3-7.7); Neutrophils % (A) 64 %; Platelet Count 352 k/uL (150-450); RBC 4.59 m/uL (3.80-5.40); RDW 12.4 % (11.5-15.5); WBC 7.6 k/uL (3.8-10.6)
[2025-01-28 08:43] LABS: African American GFR (CKD) >90 (>60 ml/min/1.73 sqM); Anion Gap 7 mmol/L; Blood Urea Nitrogen 10 mg/dL (7-17); Calcium 9.5 mg/dL (8.4-10.2); Carbon Dioxide 29 mmol/L (22-30); Chloride 100 mmol/L (98-107); Glucose 176 mg/dL (74-99); Non-African American GFR(CKD) >90 (>60 ml/min/1.73 sqM); Potassium 4.6 mmol/L (3.5-5.1); Sodium 136 mmol/L (137-145)
[2025-01-28 08:52] LABS: NT-Pro-B-Type Natriuretic Pept 290 pg/mL
[2025-01-28] MEDS: ASPIRIN 81 MG PO SCH (08:57)
[2025-01-28 11:07] VITALS: BMI 39.6
[2025-01-28 11:10] LABS: Glucose,Whole Blood 169 mg/dL (70-110)
--- NOTE | 2025-01-28 13:09 | P.PN ---
Subjective Interval History: 74-year-old female, history of diabetes mellitus, CVA/TIA, presented to the emergency department, with complaints of generalized weakness for 5 days along with shortness of breath. She apparently had no leg strength. - She was evaluated in the emergency room, and found to have a pulmonary embolism on CT angiogram. Currently, the patient is on IV heparin, saline at 75 cc an hour, and room air. --Laboratory data includes a white count 8.4, hemoglobin 13.4, hematocrit 41.4, and a platelet count of 3 31,000. PTT is 40.6. Sodium 133, potassium 3.5, chlorides 98, CO2 28, BUN 13, creatinine 0.54. Glucose is 289. Troponin was 0.325. -Urine was negative. -- Venous Doppler studies were negative for DVT. -Chest x-ray showed bibasilar patchy airspace opacities. CT angiogram showed filling defects within the pulmonary arterial vasculature, bilaterally, involving all lung lobes. Pulmonary trunk is dilated up to 43 mm. No evidence of right heart strain noted on CTA. 24 interval change 01/24/2025 Patient is seen and evaluated with family at bedside; continues to complain of weakness in the left and inability to ambulate Vital signs are reviewed and remained stable White count 8.5, hemoglobin 13.1, hematocrit 40.6, platelet count normal. Glucose 137, potassium 4.1, chlorides 103, CO2 26, BUN 5, creatinine 0.45. Glucose is 203. Calcium is 9.3. Patient has been refusing IV heparin; echo revealed cardiomyopathy with evidence of wall motion abnormalities concerning for severe underlying coronary artery disease. Given abnormalities on the EKG and echocardiogram and the abnormal ca rdiac enzymes cardiology has recommended to pursue with coronary angiogram. -Patient scheduled for cardiac catheterization 01/25/2025 Patient is seen and evaluated resting comfortably in bed; no complaint of chest pain; patient is status post cardiac catheterization which reveals occluded RCA by the ostia with chronic occlusion and bridging collateral; severe disease involving midshaft of left main, severe disease involving ostium of the left circumflex and occluded proximal left anterior descending artery -Cardiology has consulted cardiothoracic surgery -Patient has been refusing IV heparin; has been transitioned to subcu Lovenox -Patient is not willing to go through open heart surgery; might be willing for medical management versus stent placement -Has been evaluated by PT/OT and is recommended skilled rehab -Await final recommendations from cardiology 01/26/2025 Patient seen and evaluated in room at bedside; discussed results of cardiac catheterization and cardiology recommendations for surgical intervention; patient continues to decline surgery, "I am leaving in hands of the good Lord to heal my heart"; still agreeable to skilled rehab Vital signs are reviewed and stable with temperature of 98.4, pulse 80, respiration 18 and blood pressure 145/66 -- Patient has been refusing IV heparin; has been placed on subcu Lovenox per c ardiology recommendations -- Plan is to continue with current medical regimen at this time -Patient has been evaluated by PT/OT and is recommended skilled rehab; case management on board to make arrangements for discharge 01/27--patient was seen and examined today. No issues overnight. Denied any chest pain, shortness of breath, palpitations. Vital stable. CBC unremarkable. BMP unremarkable. Patient continues to refuse for CABG, currently on Eliquis, started on 10 mg twice daily for 7 days followed by 5 mg twice daily. Awaiting further cardiology recommendations regarding medical management versus PCI. Anticipate discharge to subacute rehab. 01/28--patient was seen and examined today. No issues overnight. Afebrile, heart rate 76, respiratory rate 18, blood pressure 105/66, saturating 92% on room air. CBC unremarkable. Sodium 136 potassium 4.6 BUN 10 creatinine 0.52. NT proBNP 290. TSH 2.80. HbA1c 7.9. Patient inclined to have coronary stents if indicated, cardiology following awaiting further recs. Assessment and plan: Acute bilateral PE: Without right heart strain Elevated D-dimer on presentation. CT chest showed bilateral PEs, no right heart strain Pulmonary consulted--appreciate recs. Ultrasound venous negative for DVT. Was initially on heparin drip, later on subcutaneous Lovenox therapeutic dose, now switched to Eliquis Continue Eliquis 10 mg twice daily for 7 days followed by 5 mg twice daily afterwards. Severe three-vessel CAD: Echocardiogram showed mild LV systolic dysfunction, apical hypokinesis. Underwent cardiac catheterization which showed three-vessel coronary artery disease Cardiology and cardiothoracic surgery consulted. Patient refused CABG Awaiting cardiology recommendations Aspirin, statin, lisinopril, metoprolol. Diabetes mellitus: Diabetic neuropathy History of CVA History of tobacco use Sedentary lifestyle Debility Continue home meds DVT prophylaxis: Anticoagulated with Eliquis Disposition: PT/OT consulted, anticipate subacute rehab Monitor vital signs and labs Labs and medication were reviewed. Continue same treatment. Further recommendations as per clinical course of the patient PHYSICAL EXAMINATION: GENERAL: The patient is A&O x3, NAD HEENT: EOMI, Sclerae anicteric, Moist Mucous membranes Neck: Supple, Non tender, No JVD PULMONARY: Equal breath souds B/L, No wheezing, No crackles. CARDIOVASCULAR: S1, S2 present. No murmurs, rubs, or gallops. ABDOMEN: Soft, nontender, nondistended, normoactive bowel sounds. No guarding or rebound tenderness. MUSCULOSKELETAL: No edema, No cyanosis. No clubbing. Normal ROM. Intact peripher al pulses. NEUROLOGICAL: CN 2-12 grossly intact. No FND Skin: No Rash REVIEW OF SYSTEMS: CONSTITUTIONAL: No fever or chills. CARDIOVASCULAR: No chest pain, palpitations or syncope. PULMONARY: No shortness of breath, no cough, sore throat. GASTROINTESTINAL: No nausea, vomiting, diarrhea, abdominal pain. : No Dysuria, urgency, frequency. Extremities: No edema. NEUROLOGICAL: No headaches, no weakness, or numbness Dictation was produced using [employer] dictation software. please excuse any grammatical, word or spelling errors. Objective - Vital Signs Vital signs: Vital Signs Temp 98.6 F 01/28/25 12:36 Pulse 76 01/28/25 12:36 Resp 18 01/28/25 12:36 BP 105/66 01/28/25 12:36 Pulse Ox 92 L 01/28/25 12:36 FiO2 Intake & Output 01/27/25 01/28/25 01/28/25 18:59 06:59 18:59 Intake Total 360 540 180 Output Total 400 300 Balance 360 140 -120 Weight 101.4 kg Intake: Oral 360 540 180 Output: Urine 400 300 Other: Voiding Method Bedside Commode Bedpan # Bowel Movements 0 - Labs CBC & Chem 7: 01/28/25 07:45 01/28/25 07:45 Labs: Abnormal Lab Results - Last 24 Hours (Table) 01/27/25 01/28/25 01/28/25 Range/Units 22:41 07:45 11:08 Sodium 136 L (137-145) mmol/L Glucose 176 H (74-99) mg/dL POC Glucose (mg/dL) 169 H (70-110) mg/dL Hemoglobin A1c 7.9 H (<=6.0) %
[2025-01-28] MEDS ORDERED: HEPARIN SODIUM 1,000 UN/ML (10ML VL) IV PRN (13:50)
--- NOTE | 2025-01-28 13:54 | P.PN ---
Subjective Progress Note Date: 01/28/25 The patient is a 74-year-old female patient with a past medical history significant for overweight and diabetes as well as multiple comorbid conditions who was admitted to the hospital with generalized weakness and fatigue. No other cardiovascular symptoms of any pain in the chest or shortness of breath or dizziness or lightness or any feeling of heart racing or fluttering or presyncope or syncope. She underwent further evaluation including cardiac enzymes with troponin came to be abnormal and EKG showing sinus mechanism with sinus tachycardia and S1Q3T3 pattern with nonspecific changes anteriorly as well. D-dimer came to be elevated and subsequently she underwent a CT scan of the chest which showed bilateral PE with no evidence of RV strain. Troponin is mildly elevated and NT proBNP is elevated with no echo as of now. No history of PE before. No recent surgery or history of travel for long distance as well. The physical examination is remarkable for regular rhythm with a soft systolic murmur at the right upper sternal border with clear breathing sounds bilaterally and no edema was noted in the lower extremities with please note that she underwent venous duplex study came to be unremarkable for DVT. January 23, 2025 The patient was seen and evaluated this morning. She is feeling better. The generalized weakness and fatigue have improved. No symptoms of chest pain or chest discomfort or shortness of breath at this point. She is hemodynamically stable which she is on heparin IV. I would keep the heparin IV till we have the results of the echocardiogram to rule out any cardiomyopathy. Otherwise the physical examination is remarkable for regular rhythm with a clear breathing sounds bilaterally and no edema was noted in the lower extremities January 24, 2025 The patient was seen and evaluated this morning. She is asymptomatic which is hemodynamically stable with the echo still pending. She refused to take any heparin. The physical examination appears to be unchanged compared to before. January 25, 2025 The patient was seen and evaluated this morning. She is asymptomatic. She is hemodynamically stable besides mild sinus tachycardia and I am going to increase the dose of beta-yani. Otherwise she is on statin. She is on aspirin. She underwent yesterday heart catheterization which revealed severe left main coronary artery disease and occluded LAD and occluded RCA. I advised the patient to be evaluated by the surgeon to evaluate the best way of revas cularization versus medical treatment only. The physical examination is remarkable for regular rhythm with a soft systolic murmur and clear breathing sounds bilaterally and no edema was noted January 26, 2025 The patient was seen and evaluated this morning. She is asymptomatic and she is hemodynamically stable which she was seen by the cardiothoracic surgical team yesterday and she is somewhat hesitant to undergo CABG at this point. Meanwhile she is on high intensity statin and she is on beta-yani and she is on DIMA inhibitor and also she is on Lovenox. Physical therapy is on the case. The physical examination is remarkable for regular rhythm with a soft systolic murmur and clear breathing sounds bilaterally and no edema was noted 01/27/2025 Patient is denying getting evaluated for CABG. I have educated her that the nature of her disease will be best treated by CABG evaluation however patient reports that she would rather let nature takes its course then have a open heart surgery. She understands the risk factors of not undergoing open heart surgery. I gave her an option of performing PCI which could be inferior to CABG in terms of outcome and long-term prognosis as per the guidelines. For this I have educated her that she has to be compliant with medication and cannot stop her dual antiplatelet therapy and statin. At this time patient is very reluctant to take her aspirin and statins. 01/28/2025 Patient is taking aspirin and Lipitor She is hemodynamically stable with BP 105/66, heart rate 76 bpm She is denying any chest pain chest pressure or shortness of breath at this time Appears euvolemic Assessment Severe coronary artery disease as described above Bilateral PE appears to be unprovoked NSTEMI Generalized weakness and fatigue Type 2 diabetes A1c 7.9 Multiple comorbid conditions including diabetes and hypertension and dyslipidemia Plan We discussed the case with Dr. Choi for possible PCI of left main/LAD Aspirin, Lipitor, Discontinue Eliquis for anticipated heart cath. Start Eliquis without bolus Metoprolol 25 mg twice daily, lisinopril 2.5 mg daily Await lipid panels I have educated the patient about the importance of her cardiac medications. She has agreed to try aspirin and Lipitor-has promised me to take this medication after her PCI. Will discuss the case with Dr. Choi for possible PCI. Objective - Vital Signs Vital signs: Vital Signs Temp 98.6 F 01/28/25 12:36 Pulse 76 01/28/25 12:36 Resp 18 01/28/25 12:36 BP 105/66 01/28/25 12:36 Pulse Ox 92 L 01/28/25 12:36 FiO2 Intake & Output 01/27/25 01/28/25 01/28/25 18:59 06:59 18:59 Intake Total 360 540 180 Output Total 400 300 Balance 360 140 -120 Weight 101.4 kg Intake: Oral 360 540 180 Output: Urine 400 300 Other: Voiding Method Bedside Commode Bedpan # Bowel Movements 0 - Labs CBC & Chem 7: 01/28/25 07:45 01/28/25 07:45 Labs: Abnormal Lab Results - Last 24 Hours (Table) 01/27/25 01/28/25 01/28/25 Range/Units 22:41 07:45 11:08 Sodium 136 L (137-145) mmol/L Glucose 176 H (74-99) mg/dL POC Glucose (mg/dL) 169 H (70-110) mg/dL Hemoglobin A1c 7.9 H (<=6.0) %
[2025-01-28] MEDS: HEPARIN SOD,PORK IN 0.45% NACL 25,000 UNIT in 0.45% NACL 1 250ML.BAG IV SCH (14:29)
[2025-01-28 14:49] LABS: LDL Cholesterol,Calculated 117.7 mg/dL (0.0-131.0)
[2025-01-28 15:00] LABS: Basophils # (A) 0.1 k/uL (0-0.2); Basophils % (A) 1 %; Eosinophils # (A) 0.4 k/uL (0-0.7); Eosinophils % (A) 5 %; HCT 44.4 % (34.0-46.0); HGB 14.3 gm/dL (11.4-16.0); Lymphocytes # (A) 1.6 k/uL (1.0-4.8); Lymphocytes % (A) 20 %; MCH 30.3 pg (25.0-35.0); MCHC 32.2 g/dL (31.0-37.0); MCV 93.9 fL (80.0-100.0); Mean Platelet Volume 8.4; Monocytes # (A) 0.4 k/uL (0-1.0); Monocytes % (A) 5 %; Neutrophils # (A) 5.3 k/uL (1.3-7.7); Neutrophils % (A) 67 %; Platelet Count 384 k/uL (150-450); RBC 4.73 m/uL (3.80-5.40); RDW 12.7 % (11.5-15.5); WBC 7.9 k/uL (3.8-10.6)
[2025-01-28 15:13] LABS: INR 1.2 (<1.2); Partial Thromboplastin Time 26.5 sec (22.0-30.0); Prothrombin Time 12.6 sec (10.0-12.5)
--- NOTE | 2025-01-28 15:24 | P.PN ---
Subjective Progress Note Date: 01/28/25 74-year-old female seen today in room 368. She went to the emergency department, with complaints of generalized weakness for 5 days. She apparently had no leg strength. In addition, she mentions that she was a bit short of breath. She was evaluated in the emergency room, and found to have a pulmonary embolism on CT angiogram. She was seen there by a PA I believe, and by the ER physician. The patient does have a history of CVA, and diabetes. Currently, the patient is on IV heparin, saline at 75 cc an hour, and room air. She does state that she has been inactive at home, for a number of days, prior to coming into the emergency department. Laboratory data includes a white count 8.4, hemoglobin 13.4, hematocrit 41.4, and a platelet count of 3 31,000. PTT is 40.6. Sodium 133, potassium 3.5, chlorides 98, CO2 28, BUN 13, creatinine 0.54. Glucose is 289. Troponin was 0.325. Urine was negative. Venous Doppler studies were negative for DVT. Chest x-ray showed bibasilar patchy airspace opacities. CT angiogram showed filling defects within the pulmonary arterial vasculature, bilaterally, involving all lung lobes. Pulmonary trunk is dilated up to 43 mm. No evidence of right heart strain noted on CTA. Progress note dated January 23, 2025. 74-year-old female seen yesterday in consultation. Please see my note above. The patient is seen today in room 368. The patient is currently on room air. She is receiving IV heparin. The patient is getting saline at 75 cc an hour. Cardiology is pending the echocardiogram, to decide whether or not she would be a candidate for EKOS, or suction thrombectomy. Clinically, not so much, as she appears very stable. She denies any shortness of breath, or difficulty breathing. She denies any chest pain or chest discomfort. White count 8.5, hemoglobin 13.4, hematocrit 41.2, platelet count 171,000. PTT is 36.9. Sodium 136, potassium 3.9, chlorides 100, CO2 27, BUN 6, and creatinine 0.51. Glucose is 198. Calcium is 8.6. Progress note dated January 24, 2025. 74-year-old female seen today in room 368. The patient is doing well. She is on room air. No IV fluids. The patient is apparently refusing IV heparin. Not sure that she will take an oral anticoagulant. Clinically, she is doing well. She denies any shortness of breath, cough, wheezing, chest tightness, or phlegm production. White count 8.5, hemoglobin 13.1, hematocrit 40.6, platelet count normal. Glucose 137, potassium 4.1, chlorides 103, CO2 26, BUN 5, creatinine 0.45. Glucose is 203. Calcium is 9.3. Progress note dated January 25, 2025. 74-year-old female seen in room 368. The patient is resting comfortably in bed. She is on room air. She is getting saline at 10 cc an hour. The patient had a cardiac catheterization yesterday which revealed three-vessel disease. The patient is going to be evaluated by cardiothoracic surgery for possible bypass. Currently, she is on Lovenox, therapeutic doses, 90 mg subcutaneously every 12 hours. On admission, the patient was discovered to have bilateral pulmonary emboli. Clinically, her respiratory status is stable. No new labs today other than a glucose of 156. Progress note dated January 26, 2025. 74-year-old female seen in room 368. The patient was admitted with a diagnosis of pulmonary embolism. She had a cardiac catheterization which showed severe triple-vessel disease. The patient has been refusing various treatments, and apparently was not interested in coronary artery bypass grafting. Please see the note in the chart from the cardiothoracic surgeon. In addition, the patient was refusing a direct oral anticoagulant, and is currently on Lovenox subcu, twice a day. She is not receiving any oxygen therapy. The patient is getting saline at 10 cc an hour. No new labs today other than a glucose of 140. On today's evaluation of 01/27/2025, the patient s has no specific complaints. The patient is being treated for bilateral pulmonary embolism as the patient CT of the chest was consistent with bilateral PE and the patient is currently on anticoagulation with Eliquis 10 mg p.o. twice a day. She has not had coronary artery disease and she was evaluated by cardiology and cardiothoracic surgery. Based on a recent pulmonary embolism, the patient is not a candidate for any ca rdiothoracic intervention. Cardiology is to follow-up on the case. Her Doppler of the lower extremities were essentially negative. She is essentially sedentary. Her white cell count is at 8 with a heme of 13.7 and a platelet count of 328. BUN is 11 with a creatinine of 0.49 and sodium levels at 136. The patient is currently on room air oxygen with a pulse ox 93%. No other significant events overnight. She is resting comfortably in bed. No reported bleeding complications related to anticoagulation. No hemoptysis. No pleurisy. On 01/28/2025, the patient is stable on room air oxygen with a pulse ox of 90 to 96%. No chest pain. No shortness of breath. No pleurisy or hemoptysis. room terms of her pulmonary status, the patient is stable. However, due to her severe coronary artery disease, the case was discussed with interventional cardiology and the patient is being looked into possible PCI and stenting of the left main/LAD. Based on that, anticoagulation with Eliquis has been discontinued and the patient was started on IV heparin. She remains on metoprolol 25 mg twice a day. She is also on lisinopril 2.5 mg p.o. daily. She is still on aspirin. Objective - Vital Signs Vital signs: Vital Signs Temp 98.4 F 01/28/25 08:40 Pulse 77 01/28/25 08:40 Resp 18 01/28/25 08:40 BP 103/64 01/28/25 08:40 Pulse Ox 96 01/28/25 08:40 FiO2 Intake & Output 01/27/25 01/28/25 01/28/25 18:59 06:59 18:59 Intake Total 360 540 180 Output Total 400 300 Balance 360 140 -120 Weight 101.4 kg Intake: Oral 360 540 180 Output: Urine 400 300 Other: Voiding Method Bedside Commode Bedpan # Bowel Movements 0 - Exam No acute distress, oriented 3. No conversational dyspnea, or use of accessory muscles. The patient is currently on room air oxygen. HEENT examination is grossly unremarkable. Mucous membranes are moist. No oral lesions. Neck supple. Full range of motion. No adenopathy thyromegaly or neck vein distention. Cardiovascular examination reveals regular rhythm rate. S1-S2 normal. No S3 or S4. No discernible murmur noted. Lungs reveal clear breath sounds. Breath sounds are equal bilaterally. No adventitious lung sounds including wheezes rhonchi or crackles. Abdomen soft bowel sounds are heard. No masses or tenderness. Extremities are intact. No cyanosis clubbing or edema. Skin is without rash or lesion. Neurologic examination is brief but nonfocal. - Labs CBC & Chem 7: 01/28/25 14:48 01/28/25 07:45 Labs: Abnormal Lab Results - Last 24 Hours (Table) 01/27/25 01/28/25 01/28/25 Range/Units 22:41 07:45 11:08 Sodium 136 L (137-145) mmol/L Glucose 176 H (74-99) mg/dL POC Glucose (mg/dL) 169 H (70-110) mg/dL Hemoglobin A1c 7.9 H (<=6.0) % Assessment and Plan Plan: Acute unprovoked bilateral pulmonary embolism, without evidence of right heart strain. Patient is currently on room air oxygen. Echocardiogram showed mild LV systolic dysfunction with apical hypokinesis, normal RV function, normal RV size. The patient is currently on anticoagulation and the patient is on Eliquis per protocol 10 mg p.o. twice a day. Severe triple-vessel coronary, currently, being evaluated by cardiothoracic surgery. She underwent yesterday heart catheterization which revealed severe left main coronary artery disease and occluded LAD and occluded RCA. Echocardiogram revealed ejection fraction of 45 to 50%. RV size and function was essentially within normal limits. No significant pulm hypertension. No evidence of DVT on lower extremity Dopplers. History of CVA. History of diabetes mellitus, with diabetic neuropathy. Prior history of tobacco use. Sedentary lifestyle. Plan Overall respiratory status is stable and the patient remains on room air oxygen Stop Eliquis and the patient has been transitioned to IV heparin and intubation for coronary intervention by interventional cardiology. The patient is being considered for stenting of the left main/LAD. Monitor oxygenation Cardiology regarding the triple-vessel coronary artery disease Continue beta-blockers and the patient is currently on metoprolol 25 mg p.o. twice daily. Continue lisinopril 2.5 mg p.o. daily. Continue aspirin and Lipitor 40 mg p.o. daily. Hemodynamically stable and free of any chest pain. Will continue to follow
[2025-01-28] MEDS ORDERED: ALPRAZolam 0.25 MG TAB PO PRN (15:30)
[2025-01-28 16:09] LABS: Glucose,Whole Blood 185 mg/dL (70-110)
[2025-01-29] MEDS: SODIUM CHLORIDE 0.9% 1,000 ML in EMPTY BAG 1 BAG IV SCH (04:18)
[2025-01-29 04:57] LABS: Glucose,Whole Blood 179 mg/dL (70-110)
[2025-01-29] MEDS ORDERED: HEPARIN SODIUM,PORCINE (1 ML) 2,500 UNIT in SODIUM CHLORIDE 0.9% 250 ML IRRIGATION PRN (07:00)
[2025-01-29 08:39] LABS: Basophils # (A) 0.1 k/uL (0-0.2); Basophils % (A) 1 %; Eosinophils # (A) 0.4 k/uL (0-0.7); Eosinophils % (A) 5 %; HCT 43.5 % (34.0-46.0); HGB 13.9 gm/dL (11.4-16.0); Lymphocytes # (A) 1.7 k/uL (1.0-4.8); Lymphocytes % (A) 24 %; MCH 29.7 pg (25.0-35.0); MCHC 31.9 g/dL (31.0-37.0); MCV 93.3 fL (80.0-100.0); Mean Platelet Volume 8.9; Monocytes # (A) 0.5 k/uL (0-1.0); Monocytes % (A) 6 %; Neutrophils # (A) 4.4 k/uL (1.3-7.7); Neutrophils % (A) 62 %; Platelet Count 355 k/uL (150-450); RBC 4.66 m/uL (3.80-5.40); RDW 12.4 % (11.5-15.5); WBC 7.1 k/uL (3.8-10.6)
[2025-01-29 08:43] LABS: INR 1.1 (<1.2); Partial Thromboplastin Time 37.1 sec (22.0-30.0); Prothrombin Time 11.8 sec (10.0-12.5)
[2025-01-29] MEDS: ATORVASTATIN 80 MG TAB PO STA ×2 (09:08→15:05)
[2025-01-29] MEDS: ASPIRIN 325 MG TAB PO STA ×2 (09:08→15:05)
[2025-01-29] MEDS: FLUTICASONE NASAL 50MCG/SPRAY 16GM BTL EA NOSTRIL SCH (11:49)
[2025-01-29] MEDS: LORATADINE 10 MG TAB PO SCH (11:49)
[2025-01-29] MEDS: HEPARIN SODIUM 1,000 UN/ML (10ML VL) MISCELLANE ONE (12:22)
--- NOTE | 2025-01-29 14:22 | P.PN ---
Subjective Interval History: 74-year-old female, history of diabetes mellitus, CVA/TIA, presented to the emergency department, with complaints of generalized weakness for 5 days along with shortness of breath. She apparently had no leg strength. - She was evaluated in the emergency room, and found to have a pulmonary embolism on CT angiogram. Currently, the patient is on IV heparin, saline at 75 cc an hour, and room air. --Laboratory data includes a white count 8.4, hemoglobin 13.4, hematocrit 41.4, and a platelet count of 3 31,000. PTT is 40.6. Sodium 133, potassium 3.5, chlorides 98, CO2 28, BUN 13, creatinine 0.54. Glucose is 289. Troponin was 0.325. -Urine was negative. -- Venous Doppler studies were negative for DVT. -Chest x-ray showed bibasilar patchy airspace opacities. CT angiogram showed filling defects within the pulmonary arterial vasculature, bilaterally, involving all lung lobes. Pulmonary trunk is dilated up to 43 mm. No evidence of right heart strain noted on CTA. 24 interval change 01/24/2025 Patient is seen and evaluated with family at bedside; continues to complain of weakness in the left and inability to ambulate Vital signs are reviewed and remained stable White count 8.5, hemoglobin 13.1, hematocrit 40.6, platelet count normal. Glucose 137, potassium 4.1, chlorides 103, CO2 26, BUN 5, creatinine 0.45. Glucose is 203. Calcium is 9.3. Patient has been refusing IV heparin; echo revealed cardiomyopathy with evidence of wall motion abnormalities concerning for severe underlying coronary artery disease. Given abnormalities on the EKG and echocardiogram and the abnormal ca rdiac enzymes cardiology has recommended to pursue with coronary angiogram. -Patient scheduled for cardiac catheterization 01/25/2025 Patient is seen and evaluated resting comfortably in bed; no complaint of chest pain; patient is status post cardiac catheterization which reveals occluded RCA by the ostia with chronic occlusion and bridging collateral; severe disease involving midshaft of left main, severe disease involving ostium of the left circumflex and occluded proximal left anterior descending artery -Cardiology has consulted cardiothoracic surgery -Patient has been refusing IV heparin; has been transitioned to subcu Lovenox -Patient is not willing to go through open heart surgery; might be willing for medical management versus stent placement -Has been evaluated by PT/OT and is recommended skilled rehab -Await final recommendations from cardiology 01/26/2025 Patient seen and evaluated in room at bedside; discussed results of cardiac catheterization and cardiology recommendations for surgical intervention; patient continues to decline surgery, "I am leaving in hands of the good Lord to heal my heart"; still agreeable to skilled rehab Vital signs are reviewed and stable with temperature of 98.4, pulse 80, respiration 18 and blood pressure 145/66 -- Patient has been refusing IV heparin; has been placed on subcu Lovenox per c ardiology recommendations -- Plan is to continue with current medical regimen at this time -Patient has been evaluated by PT/OT and is recommended skilled rehab; case management on board to make arrangements for discharge 01/27--patient was seen and examined today. No issues overnight. Denied any chest pain, shortness of breath, palpitations. Vital stable. CBC unremarkable. BMP unremarkable. Patient continues to refuse for CABG, currently on Eliquis, started on 10 mg twice daily for 7 days followed by 5 mg twice daily. Awaiting further cardiology recommendations regarding medical management versus PCI. Anticipate discharge to subacute rehab. 01/28--patient was seen and examined today. No issues overnight. Afebrile, heart rate 76, respiratory rate 18, blood pressure 105/66, saturating 92% on room air. CBC unremarkable. Sodium 136 potassium 4.6 BUN 10 creatinine 0.52. NT proBNP 290. TSH 2.80. HbA1c 7.9. Patient inclined to have coronary stents if indicated, cardiology following awaiting further recs. 01/29--patient was seen and examined today. No issues overnight. Afebrile, heart rate 71, respiratory rate 16, blood pressure 109/65, saturating 94% on room air. CBC unremarkable. Eliquis discontinued yesterday, started on heparin drip in anticipation of cardiac catheterization. Cardiology following. Assessment and plan: Acute bilateral PE: Without right heart strain Elevated D-dimer on presentation. CT chest showed bilateral PEs, no right heart strain Pulmonary consulted--appreciate recs. Ultrasound venous negative for DVT. Switched from Eliquis to heparin drip in anticipation of cardiac cath. Plan to switch to Eliquis 10 mg twice daily for 7 days followed by 5 mg twice daily a prior to discharge. Severe three-vessel CAD: Echocardiogram showed mild LV systolic dysfunction, apical hypokinesis. Underwent cardiac catheterization which showed three-vessel coronary artery disease Cardiology and cardiothoracic surgery consulted. Patient refused CABG Aspirin, statin, lisinopril, metoprolol. Cardiology following--- plan for cardiac catheterization/PCI Diabetes mellitus: Diabetic neuropathy History of CVA History of tobacco use Sedentary lifestyle Debility Continue home meds DVT prophylaxis: Anticoagulated with Eliquis Disposition: PT/OT consulted, anticipate subacute rehab Monitor vital signs and labs Labs and medication were reviewed. Continue same treatment. Further recommendations as per clinical course of the patient PHYSICAL EXAMINATION: GENERAL: The patient is A&O x3, NAD HEENT: EOMI, Sclerae anicteric, Moist Mucous membranes Neck: Supple, Non tender, No JVD PULMONARY: Equal breath souds B/L, No wheezing, No crackles. CARDIOVASCULAR: S1, S2 present. No murmurs, rubs, or gallops. ABDOMEN: Soft, nontender, nondistended, normoactive bowel sounds. No guarding or rebound tenderness. MUSCULOSKELETAL: No edema, No cyanosis. No clubbing. Normal ROM. Intact peripheral pulses. NEUROLOGICAL: CN 2-12 grossly intact. No FND Skin: No Rash REVIEW OF SYSTEMS: CONSTITUTIONAL: No fever or chills. CARDIOVASCULAR: No chest pain, palpitations or syncope. PULMONARY: No shortness of breath, no cough, sore throat. GASTROINTESTINAL: No nausea, vomiting, diarrhea, abdominal pain. : No Dysuria, urgency, frequency. Extremities: No edema. NEUROLOGICAL: No headaches, no weakness, or numbness Dictation was produced using [employer] dictation software. please excuse any grammatical, word or spelling errors. Objective - Vital Signs Vital signs: Vital Signs Temp 98.0 F 01/29/25 04:00 Pulse 71 01/29/25 04:00 Resp 16 01/29/25 04:00 BP 109/65 01/29/25 04:00 Pulse Ox 94 L 01/29/25 04:00 FiO2 Intake & Output 01/28/25 01/29/25 01/29/25 18:59 06:59 18:59 Intake Total 540 76.167 309.500 Output Total 800 500 100 Balance -260 -423.833 209.500 Weight 101.4 kg Intake: IV 10 Invasive Line 2 10 Intake, IV Titration 66.167 191.500 Amount Heparin Sod,Pork in 0.45% 66.167 191.500 NaCl 25,000 unit In 0.45 % NaCl 1 250ml.bag @ 9. 862 UNITS/KG/HR 10 mls/hr IV .Q24H [facility] Rx#: [id number] Oral 540 118 Output: Urine 800 500 100 Other: Voiding Method Bedpan # Voids 1 - Labs CBC & Chem 7: 01/29/25 06:52 01/28/25 07:45 Labs: Abnormal Lab Results - Last 24 Hours (Table) 01/28/25 01/28/25 01/28/25 Range/Units 07:45 14:48 16:07 PT 12.6 H (10.0-12.5) sec INR 1.2 H (<1.2) APTT (22.0-30.0) sec POC Glucose (mg/dL) 185 H (70-110) mg/dL Triglycerides 302.00 H (0.00-149.00) mg/dL Cholesterol 213.00 H (0.00-200.00) mg/dL VLDL Cholesterol, Calc 60.40 H (5.00-40.00) mg/dL HDL Cholesterol 34.90 L (40.00-60.00) mg/dL 01/29/25 01/29/25 Range/Units 04:56 06:52 PT (10.0-12.5) sec INR (<1.2) APTT 37.1 H (22.0-30.0) sec POC Glucose (mg/dL) 179 H (70-110) mg/dL Triglycerides (0.00-149.00) mg/dL Cholesterol (0.00-200.00) mg/dL VLDL Cholesterol, Calc (5.00-40.00) mg/dL HDL Cholesterol (40.00-60.00) mg/dL
--- NOTE | 2025-01-29 15:28 | P.PN ---
Subjective Progress Note Date: 01/29/25 74-year-old female seen today in room 368. She went to the emergency department, with complaints of generalized weakness for 5 days. She apparently had no leg strength. In addition, she mentions that she was a bit short of breath. She was evaluated in the emergency room, and found to have a pulmonary embolism on CT angiogram. She was seen there by a PA I believe, and by the ER physician. The patient does have a history of CVA, and diabetes. Currently, the patient is on IV heparin, saline at 75 cc an hour, and room air. She does state that she has been inactive at home, for a number of days, prior to coming into the emergency department. Laboratory data includes a white count 8.4, hemoglobin 13.4, hematocrit 41.4, and a platelet count of 3 31,000. PTT is 40.6. Sodium 133, potassium 3.5, chlorides 98, CO2 28, BUN 13, creatinine 0.54. Glucose is 289. Troponin was 0.325. Urine was negative. Venous Doppler studies were negative for DVT. Chest x-ray showed bibasilar patchy airspace opacities. CT angiogram showed filling defects within the pulmonary arterial vasculature, bilaterally, involving all lung lobes. Pulmonary trunk is dilated up to 43 mm. No evidence of right heart strain noted on CTA. Progress note dated January 23, 2025. 74-year-old female seen yesterday in consultation. Please see my note above. The patient is seen today in room 368. The patient is currently on room air. She is receiving IV heparin. The patient is getting saline at 75 cc an hour. Cardiology is pending the echocardiogram, to decide whether or not she would be a candidate for EKOS, or suction thrombectomy. Clinically, not so much, as she appears very stable. She denies any shortness of breath, or difficulty breathing. She denies any chest pain or chest discomfort. White count 8.5, hemoglobin 13.4, hematocrit 41.2, platelet count 171,000. PTT is 36.9. Sodium 136, potassium 3.9, chlorides 100, CO2 27, BUN 6, and creatinine 0.51. Glucose is 198. Calcium is 8.6. Progress note dated January 24, 2025. 74-year-old female seen today in room 368. The patient is doing well. She is on room air. No IV fluids. The patient is apparently refusing IV heparin. Not sure that she will take an oral anticoagulant. Clinically, she is doing well. She denies any shortness of breath, cough, wheezing, chest tightness, or phlegm production. White count 8.5, hemoglobin 13.1, hematocrit 40.6, platelet count normal. Glucose 137, potassium 4.1, chlorides 103, CO2 26, BUN 5, creatinine 0.45. Glucose is 203. Calcium is 9.3. Progress note dated January 25, 2025. 74-year-old female seen in room 368. The patient is resting comfortably in bed. She is on room air. She is getting saline at 10 cc an hour. The patient had a cardiac catheterization yesterday which revealed three-vessel disease. The patient is going to be evaluated by cardiothoracic surgery for possible bypass. Currently, she is on Lovenox, therapeutic doses, 90 mg subcutaneously every 12 hours. On admission, the patient was discovered to have bilateral pulmonary emboli. Clinically, her respiratory status is stable. No new labs today other than a glucose of 156. Progress note dated January 26, 2025. 74-year-old female seen in room 368. The patient was admitted with a diagnosis of pulmonary embolism. She had a cardiac catheterization which showed severe triple-vessel disease. The patient has been refusing various treatments, and apparently was not interested in coronary artery bypass grafting. Please see the note in the chart from the cardiothoracic surgeon. In addition, the patient was refusing a direct oral anticoagulant, and is currently on Lovenox subcu, twice a day. She is not receiving any oxygen therapy. The patient is getting saline at 10 cc an hour. No new labs today other than a glucose of 140. On today's evaluation of 01/27/2025, the patient s has no specific complaints. The patient is being treated for bilateral pulmonary embolism as the patient CT of the chest was consistent with bilateral PE and the patient is currently on anticoagulation with Eliquis 10 mg p.o. twice a day. She has not had coronary artery disease and she was evaluated by cardiology and cardiothoracic surgery. Based on a recent pulmonary embolism, the patient is not a candidate for any ca rdiothoracic intervention. Cardiology is to follow-up on the case. Her Doppler of the lower extremities were essentially negative. She is essentially sedentary. Her white cell count is at 8 with a heme of 13.7 and a platelet count of 328. BUN is 11 with a creatinine of 0.49 and sodium levels at 136. The patient is currently on room air oxygen with a pulse ox 93%. No other significant events overnight. She is resting comfortably in bed. No reported bleeding complications related to anticoagulation. No hemoptysis. No pleurisy. On 01/28/2025, the patient is stable on room air oxygen with a pulse ox of 90 to 96%. No chest pain. No shortness of breath. No pleurisy or hemoptysis. room terms of her pulmonary status, the patient is stable. However, due to her severe coronary artery disease, the case was discussed with interventional cardiology and the patient is being looked into possible PCI and stenting of the left main/LAD. Based on that, anticoagulation with Eliquis has been discontinued and the patient was started on IV heparin. She remains on metoprolol 25 mg twice a day. She is also on lisinopril 2.5 mg p.o. daily. She is still on aspirin. On 01/29/2025, the patient is being seen for a follow-up. The patient was supposed to have coronary intervention and stenting of the left main/LAD. The procedure was postponed. Meanwhile, the patient remains on room air oxygen. Pulse ox noted of 94%. Patient remains on IV heparin for now. No respiratory difficulties. No other new complaints otherwise for now. No chest pain. Hemoglobin stable at 13.9. Objective - Vital Signs Vital signs: Vital Signs Temp 98.0 F 01/29/25 04:00 Pulse 71 01/29/25 04:00 Resp 16 01/29/25 04:00 BP 109/65 01/29/25 04:00 Pulse Ox 94 L 01/29/25 04:00 FiO2 Intake & Output 01/28/25 01/29/25 01/29/25 18:59 06:59 18:59 Intake Total 540 76.167 165.851 Output Total 800 500 Balance -260 -423.833 165.851 Weight 101.4 kg Intake: IV 10 Invasive Line 2 10 Intake, IV Titration 66.167 165.851 Amount Heparin Sod,Pork in 0.45% 66.167 165.851 NaCl 25,000 unit In 0.45 % NaCl 1 250ml.bag @ 9. 862 UNITS/KG/HR 10 mls/hr IV .Q24H [facility] Rx#: [id number] Oral 540 Output: Urine 800 500 Other: Voiding Method Bedpan # Voids 1 - Exam No acute distress, oriented 3. No conversational dyspnea, or use of accessory muscles. The patient is currently on room air oxygen. HEENT examination is grossly unremarkable. Mucous membranes are moist. No oral lesions. Neck supple. Full range of motion. No adenopathy thyromegaly or neck vein distention. Cardiovascular examination reveals regular rhythm rate. S1-S2 normal. No S3 or S4. No discernible murmur noted. Lungs reveal clear breath sounds. Breath sounds are equal bilaterally. No adv entitious lung sounds including wheezes rhonchi or crackles. Abdomen soft bowel sounds are heard. No masses or tenderness. Extremities are intact. No cyanosis clubbing or edema. Skin is without rash or lesion. Neurologic examination is brief but nonfocal. - Labs CBC & Chem 7: 01/29/25 06:52 01/28/25 07:45 Labs: Abnormal Lab Results - Last 24 Hours (Table) 01/28/25 01/28/25 01/28/25 Range/Units 07:45 14:48 16:07 PT 12.6 H (10.0-12.5) sec INR 1.2 H (<1.2) APTT (22.0-30.0) sec POC Glucose (mg/dL) 185 H (70-110) mg/dL Triglycerides 302.00 H (0.00-149.00) mg/dL Cholesterol 213.00 H (0.00-200.00) mg/dL VLDL Cholesterol, Calc 60.40 H (5.00-40.00) mg/dL HDL Cholesterol 34.90 L (40.00-60.00) mg/dL 01/29/25 01/29/25 Range/Units 04:56 06:52 PT (10.0-12.5) sec INR (<1.2) APTT 37.1 H (22.0-30.0) sec POC Glucose (mg/dL) 179 H (70-110) mg/dL Triglycerides (0.00-149.00) mg/dL Cholesterol (0.00-200.00) mg/dL VLDL Cholesterol, Calc (5.00-40.00) mg/dL HDL Cholesterol (40.00-60.00) mg/dL Assessment and Plan Plan: Acute unprovoked bilateral pulmonary embolism, without evidence of right heart strain. Patient is currently on room air oxygen. Echocardiogram showed mild LV systolic dysfunction with apical hypokinesis, normal RV function, normal RV size. The patient is currently on anticoagulation with IV heparin Severe triple-vessel coronary, currently, being evaluated by cardiothoracic surgery. She underwent yesterday heart catheterization which revealed severe left main coronary artery disease and occluded LAD and occluded RCA. Echocardiogram revealed ejection fraction of 45 to 50%. RV size and function was essentially within normal limits. No significant pulm hypertension. No evidence of DVT on lower extremity Dopplers. History of CVA. History of diabetes mellitus, with diabetic neuropathy. Prior history of tobacco use. Sedentary lifestyle. Plan Overall respiratory status is stable and the patient remains on room air oxygen Continue IV heparin a coronary intervention by interventional cardiology. The patient is being considered for stenting of the left main/LAD. Possibly tomorrow Monitor oxygenation Cardiology regarding the triple-vessel coronary artery disease Continue beta-blockers and the patient is currently on metoprolol 25 mg p.o. twice daily. Continue lisinopril 2.5 mg p.o. daily. Continue aspirin and Lipitor 40 mg p.o. daily. Hemodynamically stable and free of any chest pain. Will continue to follow
[2025-01-29 16:38] LABS: Glucose,Whole Blood 120 mg/dL (70-110)
[2025-01-30 03:49] VITALS: RESP 16
[2025-01-30 06:24] LABS: Glucose,Whole Blood 147 mg/dL (70-110)
[2025-01-30 07:10] LABS: African American GFR (CKD) >90 (>60 ml/min/1.73 sqM); Anion Gap 7 mmol/L; Blood Urea Nitrogen 9 mg/dL (7-17); Calcium 9.2 mg/dL (8.4-10.2); Carbon Dioxide 30 mmol/L (22-30); Chloride 101 mmol/L (98-107); Glucose 164 mg/dL (74-99); Non-African American GFR(CKD) 89 (>60 ml/min/1.73 sqM); Potassium 4.2 mmol/L (3.5-5.1); Sodium 138 mmol/L (137-145)
--- NOTE | 2025-01-30 11:39 | P.PN ---
Subjective HISTORY OF PRESENT ILLNESS: The patient is a 74-year-old female patient with a past medical history significant for overweight and diabetes as well as multiple comorbid conditions who was admitted to the hospital with generalized weakness and fatigue. No other cardiovascular symptoms of any pain in the chest or shortness of breath or dizziness or lightness or any feeling of heart racing or fluttering or presyncope or syncope. She underwent further evaluation including cardiac enzymes with troponin came to be abnormal and EKG showing sinus mechanism with sinus tachycardia and S1Q3T3 pattern with nonspecific changes anteriorly as well. D-dimer came to be elevated and subsequently she underwent a CT scan of the chest which showed bilateral PE with no evidence of RV strain. Troponin is mildly elevated and NT proBNP is elevated with no echo as of now. No history of PE before. No recent surgery or history of travel for long distance as well. The physical examination is remarkable for regular rhythm with a soft systolic murmur at the right upper sternal border with clear breathing sounds bilaterally and no edema was noted in the lower extremities with please note that she underwent venous duplex study came to be unremarkable for DVT. January 23, 2025 The patient was seen and evaluated this morning. She is feeling better. The generalized weakness and fatigue have improved. No symptoms of chest pain or chest discomfort or shortness of breath at this point. She is hemodynamically stable which she is on heparin IV. I would keep the heparin IV till we have the results of the echocardiogram to rule out any cardiomyopathy. Otherwise the physical examination is remarkable for regular rhythm with a clear breathing sounds bilaterally and no edema was noted in the lower extremities January 24, 2025 The patient was seen and evaluated this morning. She is asymptomatic which is hemodynamically stable with the echo still pending. She refused to take any heparin. The physical examination appears to be unchanged compared to before. January 25, 2025 The patient was seen and evaluated this morning. She is asymptomatic. She is hemodynamically stable besides mild sinus tachycardia and I am going to increase the dose of beta-yani. Otherwise she is on statin. She is on aspirin. She underwent yesterday heart catheterization which revealed severe left main coronary artery disease and occluded LAD and occluded RCA. I advised the patient to be evaluated by the surgeon to evaluate the best way of revascularization versus medical treatment only. The physical examination is remarkable for regular rhythm with a soft systolic murmur and clear breathing sounds bilaterally and no edema was noted January 26, 2025 The patient was seen and evaluated this morning. She is asymptomatic and she is hemodynamically stable which she was seen by the cardiothoracic surgical team yesterday and she is somewhat hesitant to undergo CABG at this point. Meanwhile she is on high intensity statin and she is on beta-yani and she is on DIMA inhibitor and also she is on Lovenox. Physical therapy is on the case. The physical examination is remarkable for regular rhythm with a soft systolic murmur and clear breathing sounds bilaterally and no edema was noted 01/27/2025 Patient is denying getting evaluated for CABG. I have educated her that the nature of her disease will be best treated by CABG evaluation however patient reports that she would rather let nature takes its course then have a open heart surgery. She understands the risk factors of not undergoing open heart surgery. I gave her an option of performing PCI which could be inferior to CABG in terms of outcome and long-term prognosis as per the guidelines. For this I have educated her that she has to be compliant with medication and cannot stop her dual antiplatelet therapy and statin. At this time patient is very reluctant to take her aspirin and statins. 01/28/2025 Patient is taking aspirin and Lipitor She is hemodynamically stable with BP 105/66, heart rate 76 bpm She is denying any chest pain chest pressure or shortness of breath at this time Appears euvolemic 01/30/2025 Patient examined this morning at the bedside. Patient currently denies chest pain or pressure. She denies shortness of breath. She remains on IV heparin. Dr. Sorto discussed case with Dr. De Souza and no further intervention at this time and patient is cleared for discharge home. PHYSICAL EXAM: VITAL SIGNS: Reviewed. GENERAL: Well-developed in no acute distress. NECK: Supple. No JVD or thyromegaly LUNGS: Respirations even and unlabored. Lungs essentially clear to auscultation bilaterally. HEART: Regular rate and rhythm. S1 and S2 heard. EXTREMITIES: Normal range of motion. No clubbing or cyanosis. Peripheral pulses intact. No lower extremity edema ASSESSMENT: Severe coronary artery disease as described above Bilateral PE appears to be unprovoked NSTEMI Generalized weakness and fatigue Type 2 diabetes A1c 7.9 Multiple comorbid conditions including diabetes and hypertension and dyslipidemia PLAN: Discontinue IV heparin Begin Eliquis for PE dosing Add aspirin 81 mg daily Continue Lipitor, lisinopril, metoprolol Dr. Sorto discussed case with Dr. De Souza and no further intervention at this time and patient is cleared for discharge home. Nurse practitioner note has been reviewed by physician. Signing provider agrees with the documented findings, assessment, and plan of care documented by [employer] as a scribe. Objective - Vital Signs Vital signs: Vital Signs Temp 98.7 F 01/30/25 08:00 Pulse 86 01/30/25 08:00 Resp 16 01/30/25 08:00 BP 104/64 01/30/25 08:00 Pulse Ox 93 L 01/30/25 08:00 FiO2 Intake & Output 01/29/25 01/30/25 01/30/25 18:59 06:59 18:59 Intake Total 427.500 224.351 118 Output Total 200 500 Balance 227.500 -275.649 118 Weight 98 kg Intake: Intake, IV Titration 191.500 224.351 Amount Heparin Sod,Pork in 0.45% 191.500 224.351 NaCl 25,000 unit In 0.45 % NaCl 1 250ml.bag @ 9. 862 UNITS/KG/HR 10 mls/hr IV .Q24H [facility] Rx#: [id number] Oral 236 118 Output: Urine 200 500 Other: Voiding Method Bedpan Bedside Commode Bedside Commode # Voids 1 0 # Bowel Movements 0 - Labs CBC & Chem 7: 01/29/25 06:52 01/30/25 06:35 Labs: Abnormal Lab Results - Last 24 Hours (Table) 01/29/25 01/30/25 01/30/25 Range/Units 16:37 06:22 06:35 APTT (22.0-30.0) sec Glucose 164 H (74-99) mg/dL POC Glucose (mg/dL) 120 H 147 H (70-110) mg/dL 01/30/25 Range/Units 06:35 APTT 61.2 H (22.0-30.0) sec Glucose (74-99) mg/dL POC Glucose (mg/dL) (70-110) mg/dL
[2025-01-30 11:52] LABS: Glucose,Whole Blood 145 mg/dL (70-110)
[2025-01-30] MEDS: Apixaban Initiation Dose--VTE 5 MG TAB PO SCH (13:03)
[2025-01-30] MEDS: ASPIRIN 81 MG PO SCH (13:04)
--- NOTE | 2025-01-30 14:54 | P.PN ---
Subjective Interval History: 74-year-old female, history of diabetes mellitus, CVA/TIA, presented to the emergency department, with complaints of generalized weakness for 5 days along with shortness of breath. She apparently had no leg strength. - She was evaluated in the emergency room, and found to have a pulmonary embolism on CT angiogram. Currently, the patient is on IV heparin, saline at 75 cc an hour, and room air. --Laboratory data includes a white count 8.4, hemoglobin 13.4, hematocrit 41.4, and a platelet count of 3 31,000. PTT is 40.6. Sodium 133, potassium 3.5, chlorides 98, CO2 28, BUN 13, creatinine 0.54. Glucose is 289. Troponin was 0.325. -Urine was negative. -- Venous Doppler studies were negative for DVT. -Chest x-ray showed bibasilar patchy airspace opacities. CT angiogram showed filling defects within the pulmonary arterial vasculature, bilaterally, involving all lung lobes. Pulmonary trunk is dilated up to 43 mm. No evidence of right heart strain noted on CTA. 24 interval change 01/24/2025 Patient is seen and evaluated with family at bedside; continues to complain of weakness in the left and inability to ambulate Vital signs are reviewed and remained stable White count 8.5, hemoglobin 13.1, hematocrit 40.6, platelet count normal. Glucose 137, potassium 4.1, chlorides 103, CO2 26, BUN 5, creatinine 0.45. Glucose is 203. Calcium is 9.3. Patient has been refusing IV heparin; echo revealed cardiomyopathy with evidence of wall motion abnormalities concerning for severe underlying coronary artery disease. Given abnormalities on the EKG and echocardiogram and the abnormal ca rdiac enzymes cardiology has recommended to pursue with coronary angiogram. -Patient scheduled for cardiac catheterization 01/25/2025 Patient is seen and evaluated resting comfortably in bed; no complaint of chest pain; patient is status post cardiac catheterization which reveals occluded RCA by the ostia with chronic occlusion and bridging collateral; severe disease involving midshaft of left main, severe disease involving ostium of the left circumflex and occluded proximal left anterior descending artery -Cardiology has consulted cardiothoracic surgery -Patient has been refusing IV heparin; has been transitioned to subcu Lovenox -Patient is not willing to go through open heart surgery; might be willing for medical management versus stent placement -Has been evaluated by PT/OT and is recommended skilled rehab -Await final recommendations from cardiology 01/26/2025 Patient seen and evaluated in room at bedside; discussed results of cardiac catheterization and cardiology recommendations for surgical intervention; patient continues to decline surgery, "I am leaving in hands of the good Lord to heal my heart"; still agreeable to skilled rehab Vital signs are reviewed and stable with temperature of 98.4, pulse 80, respiration 18 and blood pressure 145/66 -- Patient has been refusing IV heparin; has been placed on subcu Lovenox per c ardiology recommendations -- Plan is to continue with current medical regimen at this time -Patient has been evaluated by PT/OT and is recommended skilled rehab; case management on board to make arrangements for discharge 01/27--patient was seen and examined today. No issues overnight. Denied any chest pain, shortness of breath, palpitations. Vital stable. CBC unremarkable. BMP unremarkable. Patient continues to refuse for CABG, currently on Eliquis, started on 10 mg twice daily for 7 days followed by 5 mg twice daily. Awaiting further cardiology recommendations regarding medical management versus PCI. Anticipate discharge to subacute rehab. 01/28--patient was seen and examined today. No issues overnight. Afebrile, heart rate 76, respiratory rate 18, blood pressure 105/66, saturating 92% on room air. CBC unremarkable. Sodium 136 potassium 4.6 BUN 10 creatinine 0.52. NT proBNP 290. TSH 2.80. HbA1c 7.9. Patient inclined to have coronary stents if indicated, cardiology following awaiting further recs. 01/29--patient was seen and examined today. No issues overnight. Afebrile, heart rate 71, respiratory rate 16, blood pressure 109/65, saturating 94% on room air. CBC unremarkable. Eliquis discontinued yesterday, started on heparin drip in anticipation of cardiac catheterization. Cardiology following. 01/30--patient was seen and examined today. No issues overnight. Feeling better today. Vital stable. Discussed with cardiology, no further intervention or cardiac catheterization during this hospitalization, recommended outpatient follow-up, plan for viable studies as outpatient. Heparin discontinued, started on Eliquis for acute VTE dosing. Anticipate discharge to subacute rehab tomorrow awaiting authorization. Assessment and plan: Acute bilateral PE: Without right heart strain Elevated D-dimer on presentation. CT chest showed bilateral PEs, no right heart strain Pulmonary consulted--appreciate recs. Ultrasound venous negative for DVT. Started on Eliquis acute VTE dosing. Severe three-vessel CAD: Echocardiogram showed mild LV systolic dysfunction, apical hypokinesis. Underwent cardiac catheterization which showed three-vessel coronary artery disease Cardiology and cardiothoracic surgery consulted. Patient refused CABG Aspirin, statin, lisinopril, metoprolol. Cardiology following--- recommended outpatient follow-up, no further intervention at this point. Diabetes mellitus: Diabetic neuropathy History of CVA History of tobacco use Sedentary lifestyle Debility Continue home meds DVT prophylaxis: Anticoagulated with Eliquis Disposition: ECF, awaiting authorization. Monitor vital signs and labs Labs and medication were reviewed. Continue same treatment. Further recommendations as per clinical course of the patient PHYSICAL EXAMINATION: GENERAL: The patient is A&O x3, NAD HEENT: EOMI, Sclerae anicteric, Moist Mucous membranes Neck: Supple, Non tender, No JVD PULMONARY: Equal breath souds B/L, No wheezing, No crackles. CARDIOVASCULAR: S1, S2 present. No murmurs, rubs, or gallops. ABDOMEN: Soft, nontender, nondistended, normoactive bowel sounds. No guarding or rebound tenderness. MUSCULOSKELETAL: No edema, No cyanosis. No clubbing. Normal ROM. Intact peripheral pulses. NEUROLOGICAL: CN 2-12 grossly intact. No FND Skin: No Rash REVIEW OF SYSTEMS: CONSTITUTIONAL: No fever or chills. CARDIOVASCULAR: No chest pain, palpitations or syncope. PULMONARY: No shortness of breath, no cough, sore throat. GASTROINTESTINAL: No nausea, vomiting, diarrhea, abdominal pain. : No Dysuria, urgency, frequency. Extremities: No edema. NEUROLOGICAL: No headaches, no weakness, or numbness Dictation was produced using [employer]ai[employer] software. please excuse any grammatical, word or spelling errors. Objective - Vital Signs Vital signs: Vital Signs Temp 98.7 F 01/30/25 08:00 Pulse 86 01/30/25 14:00 Resp 16 01/30/25 14:00 BP 104/64 01/30/25 08:00 Pulse Ox 93 L 01/30/25 08:00 FiO2 Intake & Output 01/29/25 01/30/25 01/30/25 18:59 06:59 18:59 Intake Total 427.500 224.351 236 Output Total 200 500 300 Balance 227.500 -275.649 -64 Weight 98 kg Intake: Intake, IV Titration 191.500 224.351 Amount Heparin Sod,Pork in 0.45% 191.500 224.351 NaCl 25,000 unit In 0.45 % NaCl 1 250ml.bag @ 9. 862 UNITS/KG/HR 10 mls/hr IV .Q24H [facility] Rx#: [id number] Oral 236 236 Output: Urine 200 500 300 Other: Voiding Method Bedpan Bedside Commode Bedside Commode # Voids 1 0 1 # Bowel Movements 0 - Labs CBC & Chem 7: 01/29/25 06:52 01/30/25 06:35 Labs: Abnormal Lab Results - Last 24 Hours (Table) 01/29/25 01/30/25 01/30/25 Range/Units 16:37 06:22 06:35 APTT (22.0-30.0) sec Glucose 164 H (74-99) mg/dL POC Glucose (mg/dL) 120 H 147 H (70-110) mg/dL 01/30/25 01/30/25 Range/Units 06:35 11:51 APTT 61.2 H (22.0-30.0) sec Glucose (74-99) mg/dL POC Glucose (mg/dL) 145 H (70-110) mg/dL
--- NOTE | 2025-01-30 22:28 | P.PN ---
Subjective Progress Note Date: 01/30/25 74-year-old female seen today in room 368. She went to the emergency department, with complaints of generalized weakness for 5 days. She apparently had no leg strength. In addition, she mentions that she was a bit short of breath. She was evaluated in the emergency room, and found to have a pulmonary embolism on CT angiogram. She was seen there by a PA I believe, and by the ER physician. The patient does have a history of CVA, and diabetes. Currently, the patient is on IV heparin, saline at 75 cc an hour, and room air. She does state that she has been inactive at home, for a number of days, prior to coming into the emergency department. Laboratory data includes a white count 8.4, hemoglobin 13.4, hematocrit 41.4, and a platelet count of 3 31,000. PTT is 40.6. Sodium 133, potassium 3.5, chlorides 98, CO2 28, BUN 13, creatinine 0.54. Glucose is 289. Troponin was 0.325. Urine was negative. Venous Doppler studies were negative for DVT. Chest x-ray showed bibasilar patchy airspace opacities. CT angiogram showed filling defects within the pulmonary arterial vasculature, bilaterally, involving all lung lobes. Pulmonary trunk is dilated up to 43 mm. No evidence of right heart strain noted on CTA. Progress note dated January 23, 2025. 74-year-old female seen yesterday in consultation. Please see my note above. The patient is seen today in room 368. The patient is currently on room air. She is receiving IV heparin. The patient is getting saline at 75 cc an hour. Cardiology is pending the echocardiogram, to decide whether or not she would be a candidate for EKOS, or suction thrombectomy. Clinically, not so much, as she appears very stable. She denies any shortness of breath, or difficulty breathing. She denies any chest pain or chest discomfort. White count 8.5, hemoglobin 13.4, hematocrit 41.2, platelet count 171,000. PTT is 36.9. Sodium 136, potassium 3.9, chlorides 100, CO2 27, BUN 6, and creatinine 0.51. Glucose is 198. Calcium is 8.6. Progress note dated January 24, 2025. 74-year-old female seen today in room 368. The patient is doing well. She is on room air. No IV fluids. The patient is apparently refusing IV heparin. Not sure that she will take an oral anticoagulant. Clinically, she is doing well. She denies any shortness of breath, cough, wheezing, chest tightness, or phlegm production. White count 8.5, hemoglobin 13.1, hematocrit 40.6, platelet count normal. Glucose 137, potassium 4.1, chlorides 103, CO2 26, BUN 5, creatinine 0.45. Glucose is 203. Calcium is 9.3. Progress note dated January 25, 2025. 74-year-old female seen in room 368. The patient is resting comfortably in bed. She is on room air. She is getting saline at 10 cc an hour. The patient had a cardiac catheterization yesterday which revealed three-vessel disease. The patient is going to be evaluated by cardiothoracic surgery for possible bypass. Currently, she is on Lovenox, therapeutic doses, 90 mg subcutaneously every 12 hours. On admission, the patient was discovered to have bilateral pulmonary emboli. Clinically, her respiratory status is stable. No new labs today other than a glucose of 156. Progress note dated January 26, 2025. 74-year-old female seen in room 368. The patient was admitted with a diagnosis of pulmonary embolism. She had a cardiac catheterization which showed severe triple-vessel disease. The patient has been refusing various treatments, and apparently was not interested in coronary artery bypass grafting. Please see the note in the chart from the cardiothoracic surgeon. In addition, the patient was refusing a direct oral anticoagulant, and is currently on Lovenox subcu, twice a day. She is not receiving any oxygen therapy. The patient is getting saline at 10 cc an hour. No new labs today other than a glucose of 140. On today's evaluation of 01/27/2025, the patient s has no specific complaints. The patient is being treated for bilateral pulmonary embolism as the patient CT of the chest was consistent with bilateral PE and the patient is currently on anticoagulation with Eliquis 10 mg p.o. twice a day. She has not had coronary artery disease and she was evaluated by cardiology and cardiothoracic surgery. Based on a recent pulmonary embolism, the patient is not a candidate for any ca rdiothoracic intervention. Cardiology is to follow-up on the case. Her Doppler of the lower extremities were essentially negative. She is essentially sedentary. Her white cell count is at 8 with a heme of 13.7 and a platelet count of 328. BUN is 11 with a creatinine of 0.49 and sodium levels at 136. The patient is currently on room air oxygen with a pulse ox 93%. No other significant events overnight. She is resting comfortably in bed. No reported bleeding complications related to anticoagulation. No hemoptysis. No pleurisy. On 01/28/2025, the patient is stable on room air oxygen with a pulse ox of 90 to 96%. No chest pain. No shortness of breath. No pleurisy or hemoptysis. room terms of her pulmonary status, the patient is stable. However, due to her severe coronary artery disease, the case was discussed with interventional cardiology and the patient is being looked into possible PCI and stenting of the left main/LAD. Based on that, anticoagulation with Eliquis has been discontinued and the patient was started on IV heparin. She remains on metoprolol 25 mg twice a day. She is also on lisinopril 2.5 mg p.o. daily. She is still on aspirin. On 01/29/2025, the patient is being seen for a follow-up. The patient was supposed to have coronary intervention and stenting of the left main/LAD. The procedure was postponed. Meanwhile, the patient remains on room air oxygen. Pulse ox noted of 94%. Patient remains on IV heparin for now. No respiratory difficulties. No other new complaints otherwise for now. No chest pain. Hemoglobin stable at 13.9. On 01/30/2025, patient is resting comfortably in bed. No specific complaints. Remains on room air oxygen. Denies having any shortness of breath or chest pain. Remains on IV heparin. Cardiology is to decide on coronary intervention. Final decision has not been made yet. Remains on aspirin. Eliquis will be resumed if no intervention is planned by cardiology. Rest of the medications remain unchanged. Electrolytes are all within normal limits. BUN is 10 with a creatinine of 0.6. Objective - Vital Signs Vital signs: Vital Signs Temp 98.7 F 01/30/25 08:00 Pulse 86 01/30/25 08:00 Resp 16 01/30/25 08:00 BP 104/64 01/30/25 08:00 Pulse Ox 93 L 01/30/25 08:00 FiO2 Intake & Output 01/29/25 01/30/25 01/30/25 18:59 06:59 18:59 Intake Total 427.500 224.351 118 Output Total 200 500 Balance 227.500 -275.649 118 Weight 98 kg Intake: Intake, IV Titration 191.500 224.351 Amount Heparin Sod,Pork in 0.45% 191.500 224.351 NaCl 25,000 unit In 0.45 % NaCl 1 250ml.bag @ 9. 862 UNITS/KG/HR 10 mls/hr IV .Q24H [facility] Rx#: [id number] Oral 236 118 Output: Urine 200 500 Other: Voiding Method Bedpan Bedside Commode Bedside Commode # Voids 1 0 # Bowel Movements 0 - Exam No acute distress, oriented 3. No conversational dyspnea, or use of accessory muscles. The patient is currently on room air oxygen. HEENT examination is grossly unremarkable. Mucous membranes are moist. No oral lesions. Neck supple. Full range of motion. No adenopathy thyromegaly or neck vein distention. Cardiovascular examination reveals regular rhythm rate. S1-S2 normal. No S3 or S4. No discernible murmur noted. Lungs reveal clear breath sounds. Breath sounds are equal bilaterally. No adventitious lung sounds including wheezes rhonchi or crackles. Abdomen soft bowel sounds are heard. No masses or tenderness. Extremities are intact. No cyanosis clubbing or edema. Skin is without rash or lesion. Neurologic examination is brief but nonfocal. - Labs CBC & Chem 7: 01/29/25 06:52 01/30/25 06:35 Labs: Abnormal Lab Results - Last 24 Hours (Table) 01/29/25 01/30/25 01/30/25 Range/Units 16:37 06:22 06:35 APTT (22.0-30.0) sec Glucose 164 H (74-99) mg/dL POC Glucose (mg/dL) 120 H 147 H (70-110) mg/dL 01/30/25 Range/Units 06:35 APTT 61.2 H (22.0-30.0) sec Glucose (74-99) mg/dL POC Glucose (mg/dL) (70-110) mg/dL Assessment and Plan Plan: Acute unprovoked bilateral pulmonary embolism, without evidence of right heart strain. Patient is currently on room air oxygen. Echocardiogram showed mild LV systolic dysfunction with apical hypokinesis, normal RV function, normal RV size. The patient is currently on anticoagulation with IV heparin Severe triple-vessel coronary, currently, being evaluated by cardiothoracic surgery. She underwent yesterday heart catheterization which revealed severe left main coronary artery disease and occluded LAD and occluded RCA. Echocardiogram revealed ejection fraction of 45 to 50%. RV size and function was essentially within normal limits. No significant pulm hypertension. No evidence of DVT on lower extremity Dopplers. History of CVA. History of diabetes mellitus, with diabetic neuropathy. Prior history of tobacco use. Sedentary lifestyle. Plan Overall respiratory status is stable and the patient remains on room air oxygen Continue IV heparin. Awaiting a final decision from cardiology regarding coronary intervention. If no plans for any intervention or stenting, IV heparin is to be discontinued and the patient will be started back on anticoagulation with Eliquis. Continue metoprolol 25 mg p.o. twice daily. Continue lisinopril 2.5 mg p.o. daily. Continue aspirin and Lipitor 40 mg p.o. daily. Hemodynamically stable and free of any chest pain. No active pulmonary issues for now.
[2025-01-31 09:06] VITALS: BP 120/70; PULSE 83; TEMP 97.5
--- NOTE | 2025-01-31 13:21 | P.DS ---
Providers Date of admission: 01/21/25 17:30 Attending physician: Laila Evangelista Consults: 01/21/25 17:28 Consult Physician Routine Consulting Provider: Sumeet Baum Consult Reason/Comments: PE/NSTEMI Do you want consulting provider notified?: Yes 01/21/25 19:44 Consult Physician Urgent Consulting Provider: Mark Mcclain Consult Reason/Comments: b/l pe Do you want consulting provider notified?: Yes 01/24/25 15:26 Consult Physician Routine Consulting Provider: Owen Sims Consult Reason/Comments: Evaluation for CABG Do you want consulting provider notified?: Already Contacted Primary care physician: Karoline Hooper Hospital Course: Discharge diagnoses: Acute bilateral PE: Without right heart strain Elevated D-dimer on presentation. CT chest showed bilateral PEs, no right heart strain Pulmonary consulted--appreciate recs. Ultrasound venous negative for DVT. Started on Eliquis acute VTE dosing. Severe three-vessel CAD: Echocardiogram showed mild LV systolic dysfunction, apical hypokinesis. Underwent cardiac catheterization which showed three-vessel coronary artery disease Cardiology and cardiothoracic surgery consulted. Patient refused CABG Aspirin, statin, lisinopril, metoprolol. As needed sublingual nitroglycerin Cardiology recommended outpatient follow-up, no further intervention at this point. Diabetes mellitus: Diabetic neuropathy History of CVA History of tobacco use Sedentary lifestyle Debility Continue home meds PT/OT consulted, recommended subacute rehab, director of casework services contacted. Patient discharged to subacute rehab. Hospital course: 74-year-old female, history of diabetes mellitus, CVA/TIA, presented to the emergency department, with complaints of generalized weakness for 5 days along with shortness of breath. She apparently had no leg strength. - She was evaluated in the emergency room, and found to have a pulmonary embolism on CT angiogram. Currently, the patient is on IV heparin, saline at 75 cc an hour, and room air. --Laboratory data includes a white count 8.4, hemoglobin 13.4, hematocrit 41.4, and a platelet count of 3 31,000. PTT is 40.6. Sodium 133, potassium 3.5, chlorides 98, CO2 28, BUN 13, creatinine 0.54. Glucose is 289. Troponin was 0.325. -Urine was negative. -- Venous Doppler studies were negative for DVT. -Chest x-ray showed bibasilar patchy airspace opacities. CT angiogram showed filling defects within the pulmonary arterial vasculature, bilaterally, involving all lung lobes. Pulmonary trunk is dilated up to 43 mm. No evidence of right heart strain noted on CTA. 24 interval change 01/24/2025 Patient is seen and evaluated with family at bedside; continues to complain of weakness in the left and inability to ambulate Vital signs are reviewed and remained stable White count 8.5, hemoglobin 13.1, hematocrit 40.6, platelet count normal. Glucose 137, potassium 4.1, chlorides 103, CO2 26, BUN 5, creatinine 0.45. Glucose is 203. Calcium is 9.3. Patient has been refusing IV heparin; echo revealed cardiomyopathy with evidence of wall motion abnormalities concerning for severe underlying coronary artery disease. Given abnormalities on the EKG and echocardiogram and the abnormal cardiac enzymes cardiology has recommended to pursue with coronary angiogram. -Patient scheduled for cardiac catheterization 01/25/2025 Patient is seen and evaluated resting comfortably in bed; no complaint of chest pain; patient is status post cardiac catheterization which reveals occluded RCA by the ostia with chronic occlusion and bridging collateral; severe disease involving midshaft of left main, severe disease involving ostium of the left circumflex and occluded proximal left anterior descending artery -Cardiology has consulted cardiothoracic surgery -Patient has been refusing IV heparin; has been transitioned to subcu Lovenox -Patient is not willing to go through open heart surgery; might be willing for medical management versus stent placement -Has been evaluated by PT/OT and is recommended skilled rehab -Await final recommendations from cardiology 01/26/2025 Patient seen and evaluated in room at bedside; discussed results of cardiac catheterization and cardiology recommendations for surgical intervention; patient continues to decline surgery, "I am leaving in hands of the good Lord to heal my heart"; still agreeable to skilled rehab Vital signs are reviewed and stable with temperature of 98.4, pulse 80, respiration 18 and blood pressure 145/66 -- Patient has been refusing IV heparin; has been placed on subcu Lovenox per cardiology recommendations -- Plan is to continue with current medical regimen at this time -Patient has been evaluated by PT/OT and is recommended skilled rehab; case management on board to make arrangements for discharge 01/27--patient was seen and examined today. No issues overnight. Denied any chest pain, shortness of breath, palpitations. Vital stable. CBC unremarkable. BMP unremarkable. Patient continues to refuse for CABG, currently on Eliquis, started on 10 mg twice daily for 7 days followed by 5 mg twice daily. Awaiting further cardiology recommendations regarding medical management versus PCI. Anticipate discharge to subacute rehab. 01/28--patient was seen and examined today. No issues overnight. Afebrile, heart rate 76, respiratory rate 18, blood pressure 105/66, saturating 92% on room air. CBC unremarkable. Sodium 136 potassium 4.6 BUN 10 creatinine 0.52. NT proBNP 290. TSH 2.80. HbA1c 7.9. Patient inclined to have coronary stents if indicated, cardiology following awaiting further recs. 01/29--patient was seen and examined today. No issues overnight. Afebrile, heart rate 71, respiratory rate 16, blood pressure 109/65, saturating 94% on room air. CBC unremarkable. Eliquis discontinued yesterday, started on heparin drip in anticipation of cardiac catheterization. Cardiology following. 01/30--patient was seen and examined today. No issues overnight. Feeling better today. Vital stable. Discussed with cardiology, no further intervention or cardiac catheterization during this hospitalization, recommended outpatient follow-up, plan for viable studies as outpatient. Heparin discontinued, started on Eliquis for acute VTE dosing. Anticipate discharge to subacute rehab tomorrow awaiting authorization. 01/31--patient was seen and examined today. No issues overnight. Vital stable. Patient continued on aspirin, statin, beta-yani, lisinopril, as needed sublingual nitroglycerin at discharge. Patient continued on Eliquis 10 mg twice daily for 7 days followed by 5 mg twice daily thereafter for acute PE dosing. Patient's condition and vital stable at discharge. Please refer to med rec and assessment plan for further details. Follow-up with PCP in 1 week Follow-up with cardiology as outpatient. PHYSICAL EXAMINATION: GENERAL: The patient is A&O x3, NAD HEENT: EOMI, Sclerae anicteric, Moist Mucous membranes Neck: Supple, Non tender, No JVD PULMONARY: Equal breath souds B/L, No wheezing, No crackles. CARDIOVASCULAR: S1, S2 present. No murmurs, rubs, or gallops. ABDOMEN: Soft, nontender, nondistended, normoactive bowel sounds. No guarding or rebound tenderness. MUSCULOSKELETAL: No edema, No cyanosis. No clubbing. Normal ROM. Intact periph eral pulses. NEUROLOGICAL: CN 2-12 grossly intact. No FND SKIN: No rashes. Dictation was produced using [employer] dictation software. please excuse any grammatical, word or spelling errors. Patient Condition at Discharge: Stable Plan - Discharge Summary Discharge Rx Participant: Yes New Discharge Prescriptions: New Aspirin 81 mg PO DAILY #30 tab Loratadine [Claritin] 10 mg PO DAILY tab Dapagliflozin Propanediol [Farxiga] 10 mg PO DAILY tab Fluticasone Nasal Collins [Flonase Nasal Collins] 2 spray EA NOSTRIL DAILY ml Atorvastatin [Lipitor] 40 mg PO HS #30 tab Metoprolol Tartrate [Lopressor] 25 mg PO BID #60 tab Apixaban [Eliquis Starter Pack (for VTE)] 5 - 10 mg PO DIRECTED 30 Days #1 each Nitroglycerin Sl Tabs [Nitrostat] 0.4 mg SUBLINGUAL Q5M PRN #14 tab PRN Reason: Chest Pain lisinopriL [Zestril] 2.5 mg PO DAILY #30 tab Continue metFORMIN HCL [Glucophage] 1,000 mg PO BID Gabapentin [Neurontin] 300 mg PO HS Discharge Medication List Gabapentin [Neurontin] 300 mg PO HS 01/21/25 [History] metFORMIN HCL [Glucophage] 1,000 mg PO BID 01/21/25 [History] Apixaban [Eliquis Starter Pack (for VTE)] 5 - 10 mg PO DIRECTED 30 Days #1 each 01/31/25 [Rx] Aspirin 81 mg PO DAILY #30 tab 01/31/25 [Rx] Atorvastatin [Lipitor] 40 mg PO HS #30 tab 01/31/25 [Rx] Dapagliflozin Propanediol [Farxiga] 10 mg PO DAILY tab 01/31/25 [Rx] Fluticasone Nasal Collins [Flonase Nasal Collins] 2 spray EA NOSTRIL DAILY ml 01/31 [Rx] Loratadine [Claritin] 10 mg PO DAILY tab 01/31/25 [Rx] Metoprolol Tartrate [Lopressor] 25 mg PO BID #60 tab 01/31/25 [Rx] Nitroglycerin Sl Tabs [Nitrostat] 0.4 mg SUBLINGUAL Q5M PRN #14 tab 01/31/25 [Rx] lisinopriL [Zestril] 2.5 mg PO DAILY #30 tab 01/31/25 [Rx] Follow up Appointment(s)/Referral(s): Dallas De Souza MD [STAFF PHYSICIAN] - 1 Week Karoline Hooper DO [Primary Care Provider] - 1-2 days Discharge Disposition: TRANSFER TO SNF/ECF
--- NOTE | 2025-01-31 13:44 | P.PN ---
Subjective HISTORY OF PRESENT ILLNESS: The patient is a 74-year-old female patient with a past medical history significant for overweight and diabetes as well as multiple comorbid conditions who was admitted to the hospital with generalized weakness and fatigue. No other cardiovascular symptoms of any pain in the chest or shortness of breath or dizziness or lightness or any feeling of heart racing or fluttering or presyncope or syncope. She underwent further evaluation including cardiac enzymes with troponin came to be abnormal and EKG showing sinus mechanism with sinus tachycardia and [id number] pattern with nonspecific changes anteriorly as well. D-dimer came to be elevated and subsequently she underwent a CT scan of the chest which showed bilateral PE with no evidence of RV strain. Troponin is mildly elevated and NT proBNP is elevated with no echo as of now. No history of PE before. No recent surgery or history of travel for long distance as well. The physical examination is remarkable for regular rhythm with a soft systolic murmur at the right upper sternal border with clear breathing sounds bilaterally and no edema was noted in the lower extremities with please note that she underwent venous duplex study came to be unremarkable for DVT. January 23, 2025 The patient was seen and evaluated this morning. She is feeling better. The generalized weakness and fatigue have improved. No symptoms of chest pain or chest discomfort or shortness of breath at this point. She is hemodynamically stable which she is on heparin IV. I would keep the heparin IV till we have the results of the echocardiogram to rule out any cardiomyopathy. Otherwise the physical examination is remarkable for regular rhythm with a clear breathing sounds bilaterally and no edema was noted in the lower extremities January 24, 2025 The patient was seen and evaluated this morning. She is asymptomatic which is hemodynamically stable with the echo still pending. She refused to take any heparin. The physical examination appears to be unchanged compared to before. January 25, 2025 The patient was seen and evaluated this morning. She is asymptomatic. She is hemodynamically stable besides mild sinus tachycardia and I am going to increase the dose of beta-yani. Otherwise she is on statin. She is on aspirin. She underwent yesterday heart catheterization which revealed severe left main coronary artery disease and occluded LAD and occluded RCA. I advised the patient to be evaluated by the surgeon to evaluate the best way of revascularization versus medical treatment only. The physical examination is remarkable for regular rhythm with a soft systolic murmur and clear breathing sounds bilaterally and no edema was noted January 26, 2025 The patient was seen and evaluated this morning. She is asymptomatic and she is hemodynamically stable which she was seen by the cardiothoracic surgical team yesterday and she is somewhat hesitant to undergo CABG at this point. Meanwhile she is on high intensity statin and she is on beta-yani and she is on DIMA inhibitor and also she is on Lovenox. Physical therapy is on the case. The physical examination is remarkable for regular rhythm with a soft systolic murmur and clear breathing sounds bilaterally and no edema was noted 01/27/2025 Patient is denying getting evaluated for CABG. I have educated her that the nature of her disease will be best treated by CABG evaluation however patient reports that she would rather let nature takes its course then have a open heart surgery. She understands the risk factors of not undergoing open heart surgery. I gave her an option of performing PCI which could be inferior to CABG in terms of outcome and long-term prognosis as per the guidelines. For this I have educated her that she has to be compliant with medication and cannot stop her dual antiplatelet therapy and statin. At this time patient is very reluctant to take her aspirin and statins. 01/28/2025 Patient is taking aspirin and Lipitor She is hemodynamically stable with BP 105/66, heart rate 76 bpm She is denying any chest pain chest pressure or shortness of breath at this time Appears euvolemic 01/30/2025 Patient examined this morning at the bedside. Patient currently denies chest pain or pressure. She denies shortness of breath. She remains on IV heparin. Dr. Sorto discussed case with Dr. De Souza and no further intervention at this time and patient is cleared for discharge home. 01/31/2025 Patient examined this morning at bedside. Patient currently denies chest pain or pressure. She denies shortness of breath. Vital signs are stable. She has been transition to [facility]. She is awaiting authorization for discharge to [facility] today. PHYSICAL EXAM: VITAL SIGNS: Reviewed. GENERAL: Well-developed in no acute distress. NECK: Supple. No JVD or thyromegaly LUNGS: Respirations even and unlabored. Lungs essentially clear to auscultation bilaterally. HEART: Regular rate and rhythm. S1 and S2 heard. EXTREMITIES: Normal range of motion. No clubbing or cyanosis. Peripheral pulses intact. No lower extremity edema ASSESSMENT: Severe coronary artery disease as described above Bilateral PE appears to be unprovoked NSTEMI Generalized weakness and fatigue Type 2 diabetes A1c 7.9 Multiple comorbid conditions including diabetes and hypertension and dyslipidemia PLAN: Continue Eliquis, aspirin, Lipitor, lisinopril, metoprolol Add Farxiga Dr. Sorto discussed case with Dr. De Souza and no further intervention at this time and patient is cleared for discharge Nurse practitioner note has been reviewed by physician. Signing provider agrees with the documented findings, assessment, and plan of care documented by [employer] as a scribe. Objective - Vital Signs Vital signs: Vital Signs Temp 98.7 F 01/30/25 08:00 Pulse 86 01/30/25 14:00 Resp 16 01/30/25 14:00 BP 104/64 01/30/25 08:00 Pulse Ox 93 L 01/30/25 08:00 FiO2 Intake & Output 01/30/25 01/31/25 01/31/25 18:59 06:59 18:59 Intake Total 354 Output Total 300 700 Balance 54 -700 Intake: Oral 354 Output: Urine 300 700 Other: Voiding Method Bedside Commode # Voids 2 - Labs CBC & Chem 7: 01/29/25 06:52 01/30/25 06:35 Labs: Abnormal Lab Results - Last 24 Hours (Table) 01/30/25 Range/Units 11:51 POC Glucose (mg/dL) 145 H (70-110) mg/dL
[2025-01-31] MEDS: DAPAGLIFLOZIN PROPANEDIOL 10 MG TABLET PO SCH (15:11)
== END 2025-01-31 16:38 | DRG 175 ==
LOC: EC 13:06 → 3SCARD 17:30
PROVIDERS: ADMIT Hospitalist; ATTEND Hospitalist
PROC: B2111ZZ Fluoroscopy of Multiple Coronary Arteries using Low Osmolar Contrast (ICD-10-PCS; 2025-01-24)
PROC: 4A023N7 Measurement of Cardiac Sampling and Pressure, Left Heart, Percutaneous Approach (ICD-10-PCS; principal; 2025-01-24 15:00)
DX: I26.99 Other pulmonary embolism without acute cor pulmonale (principal); I21.4 Non-ST elevation (NSTEMI) myocardial infarction; E86.0 Dehydration; E11.40 Type 2 diabetes mellitus with diabetic neuropathy, unspecified; I10 Essential (primary) hypertension; E66.9 Obesity, unspecified; I42.9 Cardiomyopathy, unspecified; J98.11 Atelectasis; E11.65 Type 2 diabetes mellitus with hyperglycemia; E11.42 Type 2 diabetes mellitus with diabetic polyneuropathy; Z68.39 Body mass index [BMI] 39.0-39.9, adult; E66.3 Overweight; E78.5 Hyperlipidemia, unspecified; R32 Unspecified urinary incontinence; I25.10 Atherosclerotic heart disease of native coronary artery without angina pectoris; R09.02 Hypoxemia; Z53.20 Procedure and treatment not carried out because of patient's decision for unspecified reasons; Z96.652 Presence of left artificial knee joint; Z86.711 Personal history of pulmonary embolism; Z79.84 Long term (current) use of oral hypoglycemic drugs; Z79.899 Other long term (current) drug therapy; Z88.1 Allergy status to other antibiotic agents; Z91.040 Latex allergy status; Z86.73 Personal history of transient ischemic attack (TIA), and cerebral infarction without residual deficits; Z87.891 Personal history of nicotine dependence
CPT/HCPCS: 36415; 71046; 71275; 80048; 80053; 80061; 81003; 82550; 83036; 83605; 83735; 83880; 84100; 84443; 84484; 85025; 85379; 85610; 85730; 87636; 93005; 93306; 93454; 93970; 96361; 96365; 96375; 99291